=== PATIENT | male | born 1935 | race Caucasian/White ===

== ENCOUNTER 2017-01-30 11:13 | Inpatient (IN) ==
[2017-01-30] MEDS ORDERED: DUONEB (A & A) INH ONE (11:42)
[2017-01-30 12:03] LABS: MANUAL DIFF NEEDED? NO
[2017-01-30 12:08] LABS: BASO% 0.3 % (0.0-0.8); EOS# 0.17 X1000 (0.0-0.7); EOS% 1.9 % (0.0-10.0); HEMATOCRIT 31.2 % (42.0-52.0); HEMOGLOBIN 9.1 g/dL (14.0-18.0); IMM GRAN# 0.05 X1000 (0.0-0.04); IMM GRAN% 0.6 % (0.0-0.5); LYMPH# 1.18 X1000 (1.2-3.4); LYMPH% 13.4 % (20.5-51.1); MCH 26.5 PG (27-31); MCHC 29.2 g/dL (33-37); MCV 90.7 FL (81-99); MONO# 0.74 X1000 (0.11-0.59); MONO% 8.4 % (1.7-9.3); MPV 10.8 FL (7.4-10.4); NEUT% 75.4 % (42.2-75.2); PLT 212 X1000 (130-400); RBC 3.44 XMIL (4.7-6.1)
[2017-01-30 12:34] LABS: ALLEN TEST YES; BE -0.8 mmoll (-3.0-3.0); BLOOD TYPE ARTERIAL; DRAW SITE R RADIAL; METHB 1.8 % (0.0-1.5); MODALITY VENTIMASK; O2(CT) 12.1 mL/dL (15.0-23.0); PCO2(98.6) 34 mmHg (35-45); PO2(98.6) 106 mmHg (60-100); SAMPLE BLOOD; SAO2 100.3 % (95.0-100.0); THB 8.9 g/dL (11.5-17.4); pH(98.6) 7.44 (7.35-7.45)
[2017-01-30 12:52] LABS: AGAP 15; ALBUMIN 4.3 g/dL (3.5-5.0); ALKALINE PHOSPHATASE 90 U/L (32-122); BUN 25 mg/dL (8-22); CALCIUM 9.1 mg/dL (8.8-10.2); CHLORIDE 103 mmol/L (98-107); COSMO 286; GOT 19 U/L (10-34); GPT 10 U/L (10-44); SODIUM 141 mmol/L (136-145); TCO2 23 mmol/L (25-35); TOTAL BILIRUBIN 1.22 mg/dL (0.20-1.00); TOTAL PROTEIN 7.3 g/dL (6.3-8.3)
[2017-01-30] MEDS ORDERED: ROCEPHIN 1 GM/NS 1 GM/50 ML IVPB IV ONE (13:40)
[2017-01-30] MEDS ORDERED: SOLU-MEDROL IV ONE (13:41)
[2017-01-30] MEDS ORDERED: ZITHROMAX 500 MG/NS 500 MG/250 ML IVPB IV SCH (13:45)
--- NOTE | 2017-01-30 15:21 | Diag Imaging Result Document ---
PROCEDURE NAME: CHEST-PORTABLE - 01/30/2017 PORTABLE CHEST: COMPARISON: 08/31/2016. FINDINGS: There are surgical clips in the right hilum. The heart is enlarged. There are postsurgical changes with scarring in the right lung. Questionable underlying infiltrate in the right base. The left lung is well expanded and clear. Minimal right pleural thickening versus an effusion. No left effusion identified. IMPRESSION: Questionable small infiltrate or atelectasis in the right base with mild cardiomegaly.
--- NOTE | 2017-01-30 15:34 | Diag Imaging Result Document ---
PROCEDURE NAME: ANGIOGRAM/PULMONARY ARTERIES - 01/30/2017 CTA CHEST: COMPARISON: 07/13/2016. FINDINGS: There is no evidence of pulmonary embolism. There is patchy aortic atherosclerotic calcification. There is no evidence of aortic aneurysm or dissection. There is cardiomegaly that appears to have worsened since the previous study. There are calcified mediastinal and hilar lymph nodes indicating prior granulomatous disease. Other shotty noncalcified in nodes are nonspecific. A few are mildly prominent, but are essentially stable as compared to the previous study. There is severe pulmonary emphysema. There is stable volume loss related to a prior partial right pneumonectomy. There is mild scarring at the periphery of the anterior aspect of the right upper lobe and at the right lung base that are essentially stable. The consolidation seen at the posterior aspect of the right upper lobe on the previous study has essentially resolved and there is now only scarring in its place. There are a few scattered calcified granulomata. No pleural fluid collection is appreciated. The left and right renal pelves appear to be more prominent than the previous study, especially on the left. There is stable mild thickening of the adrenal glands, and there is a stable 1.7 cm nodule just posterior to the right adrenal gland. There is nodular thickening right hemidiaphragm posterior to the right hepatic lobe measuring up to 2.4 cm. It is essentially stable. IMPRESSION: 1. Cardiomegaly that has worsened during the interval. 2. Severe emphysema. 3. Postsurgical changes and patchy scarring in the right lung. 4. Shotty, somewhat prominent mediastinal and hilar lymph nodes that are stable. 5. Increase in prominence of the renal collecting systems of unknown significance. 6. Stable nodular densities posterior to the right adrenal gland and underlying the right hemidiaphragm. 7. No evidence of pulmonary embolism.
[2017-01-30] MEDS ORDERED: TYLENOL PO PRN (19:58)
[2017-01-30] MEDS: SOLU-MEDROL IV SCH (21:14)
[2017-01-30] MEDS: LEVAQUIN 500 MG/D5W 500 MG/100 ML IVPB IV SCH (21:14)
[2017-01-30] MEDS: ELAVIL PO SCH (21:15)
[2017-01-30] MEDS: NIACIN PO SCH (21:15)
[2017-01-30] MEDS: FISH OIL CONCENTRATE PO SCH (21:15)
[2017-01-30] MEDS: INDERAL PO SCH (21:15)
[2017-01-30] MEDS: ZYLOPRIM PO SCH (21:15)
[2017-01-30] MEDS: ATIVAN PO SCH (21:15)
[2017-01-30] MEDS: GLUCOSAMINE 500 MG/CHONDROITIN 400 MG PO SCH (21:18)
[2017-01-30] MEDS: LOVENOX SUBQ SCH (21:18)
--- NOTE | 2017-01-30 22:16 | HISTORY AND PHYSICAL ---
PRIMARY CARE PHYSICIAN: Scott Guerra MD. CHIEF COMPLAINT: Shortness of breath. HISTORY OF PRESENT ILLNESS: This is an 81-year-old, white male with a complicated past medical history, who presents for evaluation of above-mentioned symptoms. Current history of present illness began on Monday afternoon. At that time, patient complained of mild congestion. The patient states he was able to carry out his daily activities. Unfortunately, on Monday his condition considerably progressed. The patient states he went to [employer] without event. Upon going to lunch with his family, he developed acute onset shortness of breath with associated mild wheezing. The patient was able to rest with improvement in his shortness of breath. Throughout the day, patient remained short of breath, but stable at rest. He did not seek medical attention secondary to his ability to maintain adequate symptom control with rest. This morning, patient awoke and developed profound shortness of breath while attempting to shower. Because of his progressive symptoms, patient presented to the emergency department for further evaluation and management. Upon arrival, laboratory data was drawn which returned significant only for an elevated D-dimer. The patient's oxygen saturation, however, was noted to be in the 70s. A CT angiogram of the chest was performed. The patient was found to have worsening cardiomegaly, severe emphysema, patchy scarring, shotty lymphadenopathy, and prominence of the renal collecting systems of unknown significance. Nodular densities posterior to the right adrenal gland were noted to be stable. Because of the patient's overall progressive shortness of breath and hypoxia, patient will be admitted to the hospital for full evaluation and management. Of note, patient denies recent sick contacts. He denies cardiac symptoms including chest pains, palpitations, lower extremity edema, orthopnea, and PND. He denies fevers and chills. PAST MEDICAL HISTORY: 1. History of iron-deficiency anemia. 2. History of abdominal aortic aneurysm. 3. History of a right iliac artery aneurysm. 4. Benign prostatic hypertrophy status post TURP in 2000. 5. Multiple brown nevi, actinic keratoses, and seborrheic keratoses. 6. Minimal carotid artery disease. 7. Chronic cholecystitis status post cholecystectomy in 2000. 8. Chronic obstructive pulmonary disease, severe. 9. Diverticulosis. 10. Insomnia. 11. Hypertension. 12. Hypertriglyceridemia. 13. Nonalcoholic fatty liver disease. 14. Left foot drop with spontaneous resolution in 2011. 15. Gilbert's disease. 16. Gout. 17. Hematochezia. 18. External hemorrhoids. 19. Chronic hypoxia requiring home oxygen. 20. Impaired fasting glucose. 21. History of right inguinal hernia status post surgical intervention. 22. Low HDL. 23. Erectile dysfunction. 24. Mild mitral regurgitation. 25. History of tobacco use, having smoked 1-2 packs per day for 53 years. He stopped in 2004. He currently uses oral tobacco. 26. Osteoarthritis. 27. Palpitations. 28. History of pulmonary nodules status post lobectomy with negative pathology. 29. Thrombocytopenia. CURRENT MEDICATIONS: 1. Allopurinol 200 mg daily. 2. Amitriptyline 25 mg at bedtime. 3. Aspirin 81 mg daily. 4. Claritin 10 mg daily as needed. 5. Iron sulfate 325 mg daily. 6. Fish Oil 1000 mg twice a day. 7. Glucosamine chondroitin twice daily. 8. Lorazepam 1 mg at bedtime. 9. Meloxicam 15 mg daily as needed. 10. Mucinex DM twice daily as needed. 11. Niacin 500 mg at bedtime. 12. ProAir HFA 1-2 puffs every 4-6 hours as needed. 13. Propranolol 40 mg twice daily. 14. Spiriva 18 mcg capsule inhaled daily. 15. Symbicort 160/4.5, 2 puffs twice daily. ALLERGIES: Patient states she is allergic to Actos, doxycycline, TriCor, and Zosyn therapy. SOCIAL HISTORY: Patient previously smoked 1-2 packs per day for 53 years. He stopped in 2004. He currently uses oral tobacco. He denies alcohol or illicit drug use. He is retired from [employer]. He enjoys gardening and watching basketball. His exercise is limited by lung disease. FAMILY HISTORY: Patient's father passed at age 79 secondary to complications of a hepatoma. Patient's mother passed at age 98 secondary to complications of dementia. She had a history of stroke. REVIEW OF SYSTEMS: A 12 point review of systems was performed. Pertinent positives and negatives noted in history present illness. PHYSICAL EXAMINATION: VITAL SIGNS: Temperature 97.4 degrees, heart rate 86, respirations 15, blood pressure is 108/59. GENERAL: Well-nourished, well-developed, in no acute distress. HEENT: Normocephalic, atraumatic. Pupils equal, round, reactive to light. Extraocular muscles intact. Sclerae anicteric. [place] conjunctivae. Oropharynx and nasopharynx clear without exudate. NECK: Supple. No lymphadenopathy. No thyromegaly. No bruits auscultated. CARDIOVASCULAR: Regular rate and rhythm. No significant murmurs, rubs, or gallops. PULMONARY: Distant breath sounds bilaterally. Minimal wheezing. ABDOMEN: Soft, nontender, nondistended. Positive bowel sounds. EXTREMITIES: Moves all extremities well. No significant clubbing, cyanosis, or edema. NEUROLOGIC EXAMINATION: Cranial nerves 2 through 12 grossly intact. Motor and sensory grossly intact. PSYCHOLOGIC EXAMINATION: Appropriate. LABORATORY DATA: White blood cell count 8.83, hemoglobin 9.1, hematocrit 31.2, platelet count 212,000. D-dimer 0.89, pH 7.44, pCO2 34, PO2 106, bicarbonate 24. Sodium 141, potassium 4.0, chloride 103, bicarbonate 23, BUN 25, creatinine 1.1, glucose 101, calcium 9.1, total bilirubin 1.22, total protein 7.3, albumin 4.3, alkaline phosphatase 90, AST 19, ALT 10. ASSESSMENT AND PLAN: An 81-year-old white male with past medical history as noted presents for evaluation of profound shortness of breath with associated hypoxia. Patient has severe COPD and has experienced multiple exacerbations recently. The patient was treated with steroids and bronchodilators while in the emergency department. This has improved, although not resolved his condition. Patient will be admitted to the hospital for full evaluation and management of acute exacerbation of chronic obstructive pulmonary disease with associated hypoxia. 1. Admit to General Medicine. 2. Acute exacerbation of chronic obstructive pulmonary disease - As above, patient has severe disease. Unfortunately, this is nearing end-stage. We will place patient on bronchodilators, steroids, and IV antibiotic therapy. We will encourage incentive spirometry and aspiration precautions. We will follow his clinical course closely. 3. Hypoxia - This is significant. The patient will be placed on oxygen per protocol. We will treat the patient aggressively as described above. Unfortunately, time will determine whether improvement can be achieved. His underlying severe COPD is the primary cause of hypoxia. 4. Hypertension - We will continue patient's home medications. His blood pressure at the present time is reasonably controlled. 5. Cardiomegaly - This is described per CT scan. We will schedule an echocardiogram in the a.m. 6. Impaired fasting glucose - We will monitor patient's blood sugars while hospitalized. We will remain aware. 7. Fluid, electrolytes, nutrition. We will monitor electrolytes. Saline lock IV. Cardiac prudent diet. Prophylaxis: Patient will be placed on subcutaneous Lovenox. cc: Scott Guerra MD MTDD
[2017-01-30] MEDS: DUONEB (A & A) INH SCH (22:33)
[2017-01-31] MEDS: DUONEB (A & A) INH SCH ×6 (03:48→23:16)
[2017-01-31] MEDS: SOLU-MEDROL IV SCH ×3 (05:00→20:47)
[2017-01-31] MEDS: PRILOSEC PO SCH ×2 (05:29→07:29)
--- NOTE | 2017-01-31 05:47 | EKG Report ---
Test Performed on : 01/30/2017 11:32:42 AM Test Reason : Blood Pressure : / mmHG Vent. Rate : 072 BPM Atrial Rate : 072 BPM P-R Int : 182 ms QRS Dur : 090 ms QT Int : 422 ms P-R-T Axes : -15 -09 019 degrees QTc Int : 462 ms Normal sinus rhythm. ST \T\ T wave abnormality, consider anterior ischemia Prolonged QT Abnormal ECG When compared with ECG of 12-JUL-2016 22:01, Questionable change in QRS axis T wave inversion now evident in Anterior leads Unconfirmed Result
[2017-01-31] MEDS: SYMBICORT 160/4.5 MICROGM INHALER INH SCH ×2 (08:10→23:16)
[2017-01-31] MEDS: SPIRIVA INH SCH (08:10)
[2017-01-31] MEDS: GLUCOSAMINE 500 MG/CHONDROITIN 400 MG PO SCH ×2 (08:45→20:48)
[2017-01-31] MEDS: CLARITIN PO SCH (08:45)
[2017-01-31] MEDS: ASPIRIN PO SCH (08:45)
[2017-01-31] MEDS: FERROUS SULFATE PO SCH (08:45)
[2017-01-31] MEDS: FISH OIL CONCENTRATE PO SCH ×2 (08:45→20:48)
[2017-01-31] MEDS: INDERAL PO SCH ×2 (08:46→20:47)
[2017-01-31] MEDS: ZYLOPRIM PO SCH ×2 (08:55→20:48)
[2017-01-31] MEDS: ATIVAN PO SCH (20:47)
[2017-01-31] MEDS: NIACIN PO SCH (20:47)
[2017-01-31] MEDS: ELAVIL PO SCH (20:48)
[2017-01-31] MEDS: LEVAQUIN 500 MG/D5W 500 MG/100 ML IVPB IV SCH (20:48)
[2017-01-31] MEDS: LOVENOX SUBQ SCH (20:48)
--- NOTE | 2017-01-31 21:52 | ECHO REPORT ---
ORDER DATE: 01/30/2017 INTERPRETING PHYSICIAN: Dr. Carrera REQUESTING PHYSICIAN: CLINICAL INDICATIONS: An 81-year-old male with shortness of breath, COPD. M-MODE MEASUREMENTS: Right ventricle: 3.6 cm. Left ventricle end diastole: 4.5 cm. Left ventricle end systole: 2.8 cm. Posterior wall: 1.1 cm. Interventricular septum: 1.2 cm. Left atrium: 3.8 cm. Aortic root: 4.4 cm. SUMMARY OF 2-DIMENSIONAL IMAGING: The left ventricular function appears to be very well preserved. Ejection fraction estimated at 65-70%. The ventricle is actually hyperdynamic. The right ventricle is enlarged. It shows mild global hypokinesis. The mitral valve shows a mild degree of regurgitation. Pulse wave Doppler of mitral inflow shows reversal of the E and the A wave. Tissue Doppler of septal and lateral mitral annulus averages 7 cm per second. Diastolic function is probably within normal range. The pulmonic valve looks normal with a mild degree of regurgitation. The inferior vena cava is at the upper limits of normal. The tricuspid valve shows a moderate degree of regurgitation. The pulmonary systolic pressure is estimated at 74 mmHg. That is consistent with significant pulmonary hypertension. The aortic valve is calcified. It shows restricted opening. Color flow mapping shows a mild degree of regurgitation. Maximum gradient across the valve is 63 mmHg, mean gradient 32 mmHg. Valve area is calculated at 1.2 cm squared using continuity equation. There is no pericardial effusion, masses or thrombus. IMPRESSION: In summary, this study shows: 1. Excellent left ventricular systolic function. 2. Moderate degree of aortic stenosis. Mean gradient 32 mmHg. Valve area 1.2 cm squared. 3. Diastolic function probably normal. 4. Enlarged right ventricle with hypokinesis and moderate pulmonary hypertension estimated at 74 mmHg. Clinical correlation recommended. cc: MD Scott Merrill MD
--- NOTE | 2017-01-31 21:58 | PROGRESS NOTE ---
DATE: 01/31/2017 SUBJECTIVE: Over the course of the last 24 hours, the patient has been treated aggressively for an underlying acute exacerbation of COPD. Solu-Medrol, antibiotics, and bronchodilators were initiated. The patient has tolerated medical intervention very well. Today, patient states his overall condition has improved. He continues to have shortness of breath with minimal exertion, although this is better than yesterday. He has a cough, which is largely nonproductive. He denies fevers, chills, nausea, vomiting, or chest discomfort. He continues to require oxygen therapy to maintain adequate oxygen saturations. OBJECTIVE: Vital Signs: T-max 98.0 degrees, heart rate 84-105, respirations 16-24, blood pressure 107-119 over 59-75. General: Well-nourished, well-developed, no acute distress. Cardiovascular: Regular rate and rhythm. No significant murmurs, rubs, or gallops. Pulmonary: Distant breath sounds. Reasonable air movement. Abdomen: Soft, nontender, nondistended. Positive bowel sounds. Extremities: Moves all extremities well. No significant clubbing, cyanosis, or edema. Dermatologic: Evaluation reveals no evidence of rash. LABORATORY DATA: None. ASSESSMENT AND PLAN: 1. Acute exacerbation of chronic obstructive pulmonary disease - As above. Patient's overall condition has improved. For now, we will continue his current dose and schedule of Solu- Medrol. We will continue antibiotics and bronchodilators. If the patient's condition continues to improve, we will initiate steroid taper in the a.m. 2. Hypoxia - The patient continues to require oxygen per protocol. We will continue this and monitor patient's course closely. 3. Hypertension - The patient's blood pressure is reasonably controlled on his current regimen. 4. Cardiomegaly - This was described per CT scan. Echocardiogram has been performed. Results are pending. We will follow this. 5. Impaired fasting glucose. I think we will continue the patient on sliding scale insulin, while on steroid intervention. 6. Disposition - At this point, the patient continues to require [facility] care in a hospital setting. We will plan discharge home once appropriate. cc: Scott Guerra MD
[2017-02-01] MEDS: DUONEB (A & A) INH SCH ×6 (03:44→23:01)
[2017-02-01] MEDS: PRILOSEC PO SCH ×2 (04:11→08:09)
[2017-02-01] MEDS: SOLU-MEDROL IV SCH ×3 (04:12→20:32)
[2017-02-01] MEDS: SYMBICORT 160/4.5 MICROGM INHALER INH SCH ×2 (07:26→19:58)
[2017-02-01] MEDS: SPIRIVA INH SCH (07:26)
[2017-02-01] MEDS: ASPIRIN PO SCH (08:13)
[2017-02-01] MEDS: INDERAL PO SCH ×2 (08:13→20:32)
[2017-02-01] MEDS: ZYLOPRIM PO SCH ×2 (08:13→20:33)
[2017-02-01] MEDS: GLUCOSAMINE 500 MG/CHONDROITIN 400 MG PO SCH ×2 (08:14→20:33)
[2017-02-01] MEDS: FERROUS SULFATE PO SCH (08:14)
[2017-02-01] MEDS: FISH OIL CONCENTRATE PO SCH ×2 (08:14→20:33)
[2017-02-01] MEDS: CLARITIN PO SCH (08:14)
--- NOTE | 2017-02-01 18:41 | PROGRESS NOTE ---
DATE: 02/01/2017 SUBJECTIVE: Overall, patient states he is slowly improving. The patient notes his shortness of breath and wheezing has decreased over the course of the last 24 hours. He is tolerating Solu- Medrol, antibiotics and bronchodilators well. Yesterday, he had an echocardiogram performed. Echocardiogram suggested excellent left ventricular systolic function, moderate degree of aortic stenosis, and enlarged right ventricle with hypokinesis and moderate pulmonary hypertension estimated at 74 mmHg. He denies fevers, chills, nausea, vomiting, or chest discomfort. OBJECTIVE: Vital signs: Temperature maximum is 98 degrees, heart rate of 50-97, respirations 18- 20, blood pressure 107-130/64-75. General: Well nourished, well developed, in no acute distress. Cardiovascular: Regular rate and rhythm. No significant murmurs, rubs, or gallops. Pulmonary: Distant breath sounds. Clear to auscultation. Prolonged expiratory phase. Abdomen: Soft, nontender, nondistended. Positive bowel sounds. Extremities: Moves all extremities well. No significant clubbing, cyanosis, or edema. Dermatologic: Evaluation reveals no evidence of fracture. LABORATORY DATA: None. ASSESSMENT AND PLAN: 1. Acute exacerbation of chronic obstructive pulmonary disease-patient's overall condition is slowly improving. We will continue antibiotics and bronchodilators. We will began decreasing Solu-Medrol to 40 mg every 8 hours. We will follow patient's clinical course closely. 2. Hypoxia-we will continue oxygen per protocol. 3. Aortic stenosis-we will remain aware. Patient will need a Cardiology follow up as an outpatient. 4. Enlarged right ventricle with hypokinesis and moderate pulmonary hypertension-this was diagnosed per echocardiogram. This likely is secondary to severe chronic obstructive pulmonary disease. Once again, we will plan Cardiology follow up as an outpatient. 5. Hypertension-patient's blood pressure is controlled on his current regimen. 6. Impaired fasting glucose-while on steroids, we will continue sliding scale insulin. 7. Disposition-at this point, patient continues to require long-term care in the hospital setting. We will plan discharge home once appropriate. cc: Scott Guerra MD
[2017-02-01] MEDS: LOVENOX SUBQ SCH (20:33)
[2017-02-01] MEDS: NIACIN PO SCH (20:33)
[2017-02-01] MEDS: LEVAQUIN 500 MG/D5W 500 MG/100 ML IVPB IV SCH (20:33)
[2017-02-01] MEDS: ELAVIL PO SCH (20:33)
[2017-02-01] MEDS: ATIVAN PO SCH (20:37)
[2017-02-02] MEDS: DUONEB (A & A) INH SCH ×6 (04:09→23:21)
[2017-02-02] MEDS: PRILOSEC PO SCH ×2 (05:22→08:23)
[2017-02-02] MEDS: SOLU-MEDROL IV SCH ×2 (05:22→17:34)
--- NOTE | 2017-02-02 06:18 | ED EKG INTERP ---
This chart was entered by Jennifer Gray Scribe, acting as scribe for Tian Lara MD. EKG Interpretation - EKG Time of EKG reading by physician:: 11:32 EKG Read and Signed by:: Tian Lara EKG Interpretation (*Must complete 3 of following elements*): Abnormal ( prolonged QT) Rate: 72 Rhythm: normal sinus rhythm Comments: ST and T wave abnormality, consider anterior ischemia; This chart was documented by the indicated scribe, (Jennifer Gray Scribe) and accurately reflects the services I performed and decisions made by me, Tian Lara MD, as attested by the provider's signature.
[2017-02-02] MEDS: SPIRIVA INH SCH (07:35)
[2017-02-02] MEDS: SYMBICORT 160/4.5 MICROGM INHALER INH SCH ×2 (07:35→19:55)
[2017-02-02] MEDS: ZYLOPRIM PO SCH ×2 (08:23→20:25)
[2017-02-02] MEDS: FISH OIL CONCENTRATE PO SCH ×2 (08:23→20:25)
[2017-02-02] MEDS: INDERAL PO SCH ×2 (08:23→20:25)
[2017-02-02] MEDS: FERROUS SULFATE PO SCH (08:23)
[2017-02-02] MEDS: ASPIRIN PO SCH (08:23)
[2017-02-02] MEDS: GLUCOSAMINE 500 MG/CHONDROITIN 400 MG PO SCH ×2 (08:23→20:25)
[2017-02-02] MEDS: CLARITIN PO SCH (08:23)
--- NOTE | 2017-02-02 14:37 | PROGRESS NOTE ---
DATE: 02/02/2017 SUBJECTIVE: This morning, patient states he continues to slowly improve. He complains of less cough, congestion, wheezing, and shortness of breath. He is interested in attempting a shower today. He denies fevers, chills, nausea, vomiting, or chest discomfort. OBJECTIVE: Vital Signs: T-max 97.9 degrees, heart rate 84-95, respirations 18-22, blood pressure 115-135/63-82. General: Well nourished, well developed, in no acute distress. Cardiovascular: Regular rate and rhythm. No significant murmurs, rubs, or gallops. Occasional ectopy. Pulmonary: Distant breath sounds with minimal wheezing. Prolonged expiratory phase. Abdomen: Soft, nontender, nondistended. Positive bowel sounds. Extremities: Moves all extremities well. No significant clubbing, cyanosis, or edema. Dermatologic Evaluation: Evaluation reveals no evidence of rash. LABORATORY DATA: None. ASSESSMENT AND PLAN: 1. Acute exacerbation of chronic obstructive pulmonary disease - The patient's overall condition continues to very slowly improve. We will decrease patient's Solu-Medrol 40 mg every 12 hours. We will continue antibiotics and bronchodilators. We will call follow his clinical course closely. 2. Hypoxia - We will continue oxygen per protocol. We will follow this up. 3. Aortic stenosis - Patient is noted to have moderate aortic stenosis. We will plan cardiology consultation prior to discharge. While I do not expect this is the primary cause of symptoms, I suspect this may be a contributing factor. 4. Enlarged right ventricle with hypokinesis and moderate pulmonary hypertension - Once again, we will consider cardiology consultation prior to discharge. Elevated pulmonary pressures are likely secondary to significant chronic obstructive pulmonary disease. We will remain aware. 5. Hypertension - The patient's blood pressure is controlled on his current regimen. We will continue this. 6. Impaired fasting glucose - The patient's blood sugars have increased while on steroids. We will continue sliding scale insulin DISPOSITION: At this point, the patient continues to require snf care in a hospital setting. We will plan discharge home once appropriate. cc: Scott Geurra MD
[2017-02-02] MEDS: ELAVIL PO SCH (20:25)
[2017-02-02] MEDS: ATIVAN PO SCH (20:25)
[2017-02-02] MEDS: LEVAQUIN 500 MG/D5W 500 MG/100 ML IVPB IV SCH (20:25)
[2017-02-02] MEDS: NIACIN PO SCH (20:25)
[2017-02-02] MEDS: LOVENOX SUBQ SCH (20:25)
[2017-02-03] MEDS: DUONEB (A & A) INH SCH ×5 (04:01→23:09)
[2017-02-03] MEDS: SOLU-MEDROL IV SCH (06:11)
[2017-02-03] MEDS: PRILOSEC PO SCH (06:11)
[2017-02-03] MEDS: SYMBICORT 160/4.5 MICROGM INHALER INH SCH ×2 (08:25→19:56)
[2017-02-03] MEDS: SPIRIVA INH SCH (08:25)
[2017-02-03] MEDS ORDERED: PREDNISONE PO ONE (08:43)
[2017-02-03] MEDS: CLARITIN PO SCH (09:04)
[2017-02-03] MEDS: ASPIRIN PO SCH (09:04)
[2017-02-03] MEDS: GLUCOSAMINE 500 MG/CHONDROITIN 400 MG PO SCH ×2 (09:04→20:27)
[2017-02-03] MEDS: FERROUS SULFATE PO SCH (09:04)
[2017-02-03] MEDS: FISH OIL CONCENTRATE PO SCH ×2 (09:04→20:28)
[2017-02-03] MEDS: INDERAL PO SCH ×2 (09:04→20:27)
[2017-02-03] MEDS: ZYLOPRIM PO SCH ×2 (09:04→20:27)
--- NOTE | 2017-02-03 09:42 | CONSULTATION ---
DATE OF CONSULTATION: 02/03/2017 INDICATION: Aortic stenosis. HISTORY OF PRESENT ILLNESS: Mr. Shaikh is a pleasant 81-year-old white male with a history of COPD, who presented for evaluation of shortness of breath on the first. He reports symptoms have been worsening somewhat over the previous few days. He had some mild upper respiratory congestion, but denies any significant amount of cough or fevers. He has a significant history of COPD with apparently partial lung resection in the past. He denies any orthopnea. No PND. No lower extremity edema. He has no history of heart failure that he is aware of. PAST MEDICAL HISTORY: 1. Abdominal aortic and right iliac artery aneurysm. 2. History of BPH with previous TURP in 2000. 3. Significant COPD with previous partial lung resection. 4. Diverticulosis. 5. Hypertension. 6. Hyperlipidemia; predominantly notably elevated triglyceride and low HDL. 7. Gilbert disease. 8. Gout. 9. External hemorrhoids. 10. Erectile dysfunction. 11. Previous tobacco use. Quit in 2004. 12. Osteoarthritis. SOCIAL HISTORY: Previously smoked 1-2 packs a day for 53 years, but quit around 12 years ago. No current alcohol. FAMILY HISTORY: Father at 79; mother at 98 secondary to dementia. REVIEW OF SYSTEMS: A 10-system review of systems is negative except for those things mentioned in HPI. PHYSICAL EXAMINATION: Vital Signs: Most recently he is afebrile. Heart rate of 91, blood pressure 138/79. General: He is in no acute distress. HEENT: Oropharynx is moist. Poor dentition. Eye examination shows pink conjunctivae, white sclerae. Neck: Examination shows no obvious thyromegaly. No thyroid tenderness. Cardiovascular: He is in a regular rate and rhythm. He has a 2/6 systolic murmur that is crescendo/decrescendo best heard at the right upper sternal border. There is some possible radiation up into the left carotid. No lower extremity edema. Chest: His chest exam reveals he has reduced breath sounds somewhat diffusely. No increased work of breathing. Abdomen: Soft, nontender. No obvious organomegaly. Skin Exam: Warm and dry throughout without any rashes. Neurological: He is moving all extremities well. He is nonfocal. Cranial nerves are intact. Psychiatric: He is alert, oriented and pleasant. He has a normal mood and affect. PERTINENT DATA: He had an echocardiogram performed here on the first demonstrating moderate aortic stenosis. Mean gradient 32, valve area of 1.2. Notably also the right ventricle was somewhat enlarged with mild hypokinesis and an RV systolic pressure of 74. He had mild LVH. The aortic root was also noted to be somewhat enlarged on that study. Pulmonary arteriogram demonstrated no evidence of embolism. The aortic valve was not noted to be enlarged on that study. Severe emphysema was noted with post surgical changes in the right lung. Electrocardiogram performed on the demonstrated sinus rhythm, no signs of ischemic changes, no significant injury pattern. LABORATORY DATA: His proBNP on presentation was 835. Most recently his sodium is 141, potassium 4, BUN 25, creatinine 1.1. His T-bilirubin is 1.22. His white count is 8.8, hematocrit 31.2, and his platelet count is 212. ASSESSMENT: 1. Moderate aortic stenosis. 2. Severe chronic obstructive pulmonary disease. PLAN: Patient is likely not symptomatic from the aortic stenosis. His proBNP is elevated; this could be partially secondary to the aortic stenosis, but also likely secondary to his right heart issues which what appears to be pulmonary venous hypertension secondary to severe COPD. At this point, I just want to add in just a very low dose of diuretic at hydrochlorothiazide 12.5 mg daily. I have written a prescription for a basic metabolic panel to be checked late next week. I will see him in the office within the next month. Likely would plan to have an echocardiogram checked in the next 6 months and then, depending on the result of that, probably yearly thereafter. I appreciate the consultation. cc: MD Scott Rod MD
[2017-02-03] MEDS: ATIVAN PO SCH (20:27)
[2017-02-03] MEDS: NIACIN PO SCH (20:27)
[2017-02-03] MEDS: LEVAQUIN 500 MG/D5W 500 MG/100 ML IVPB IV SCH (20:27)
[2017-02-03] MEDS: ELAVIL PO SCH (20:28)
[2017-02-03] MEDS: LOVENOX SUBQ SCH (20:28)
--- NOTE | 2017-02-03 21:19 | PROGRESS NOTE ---
DATE: 02/03/2017 SUBJECTIVE: Patient continues to slowly improve. He is experiencing less cough, congestion, wheezing and shortness of breath. He is walking with physical therapy. His overall condition has improved from yesterday. OBJECTIVE: T-max 98.6 degrees, heart rate 67- 91, respirations 16-24, blood pressure is 120-145 over 78-83.General: Well nourished, well developed. No acute distress. Cardiovascular: Regular rate and rhythm. No significant murmurs, rubs, or gallops. Pulmonary: Distant breath sounds. Adequate air movement. Abdomen: Soft, nontender, nondistended. Positive bowel sounds. Extremities: Moves all extremities well. No significant clubbing, cyanosis or edema. Dermatologic: Evaluation reveals no evidence of rash. LABORATORY DATA: None. ASSESSMENT AND PLAN: 1. Acute exacerbation of chronic obstructive pulmonary disease-patient continues to very slowly improve. This morning we converted the patient from IV Solu-Medrol to oral prednisone. This evening patient continues to do reasonably well. Should patient continue to do well in the morning, we will plan discharge home with a prolonged steroid taper. 2. Hypoxia-we will continue oxygen per protocol. His O2 saturation is acceptable. 3. Aortic stenosis. I appreciate Dr. Mcneal's consultation. Dr. Mcneal has recommended starting hydrochlorothiazide therapy. At this point, no surgical intervention is warranted. 4. Hypertension-patient's blood pressure is controlled on his current regimen. 5. Impaired fasting glucose-blood sugars have been elevated secondary to steroid use. We will continue sliding scale insulin. 6. Disposition-at this point, the patient continues to require correction care in the hospital setting. We will plan discharge home once appropriate. cc: Scott Guerra MD
[2017-02-04] MEDS: DUONEB (A & A) INH SCH ×3 (04:19→11:20)
[2017-02-04] MEDS: PRILOSEC PO SCH (06:33)
[2017-02-04 07:24] VITALS: BP 146/86
[2017-02-04] MEDS: SYMBICORT 160/4.5 MICROGM INHALER INH SCH (07:30)
[2017-02-04] MEDS: SPIRIVA INH SCH (07:30)
[2017-02-04] MEDS ORDERED: HYDROCHLOROTHIAZIDE PO SCH (09:00)
[2017-02-04] MEDS: INDERAL PO SCH (09:01)
[2017-02-04] MEDS: ASPIRIN PO SCH (09:01)
[2017-02-04] MEDS: ZYLOPRIM PO SCH (09:01)
[2017-02-04] MEDS: FERROUS SULFATE PO SCH (09:01)
[2017-02-04] MEDS: CLARITIN PO SCH (09:01)
[2017-02-04] MEDS: FISH OIL CONCENTRATE PO SCH (09:01)
[2017-02-04] MEDS: GLUCOSAMINE 500 MG/CHONDROITIN 400 MG PO SCH (09:01)
[2017-02-04] MEDS ORDERED: PREDNISONE PO ONE (11:19)
--- NOTE | 2017-02-05 06:52 | DISCHARGE SUMMARY ---
ADMISSION DATE: 01/30/2017 DISCHARGE DATE: 02/04/2017 ADMISSION DIAGNOSIS: Shortness of breath. DISCHARGE DIAGNOSES: 1. Acute exacerbation of chronic obstructive pulmonary disease. 2. Hypoxia, present on arrival, but with exacerbation. 3. Aortic stenosis, present on arrival, but modestly symptomatic. 4. Hypertension, present on arrival. 5. Impaired fasting glucose, present on arrival. CONSULTATIONS: Dr. Anupam Mcneal, with Cardiology, was consulted for further evaluation and management of aortic stenosis. PROCEDURES: 1. A chest x-ray was performed on 01/30/2017, which revealed questionable small infiltrate or atelectasis in the right base with mild cardiomegaly. 2. A CT pulmonary angiogram was performed on 01/30/2017, which revealed cardiomegaly that has worsened during the interval. Severe emphysema. Post surgical changes and patchy scarring in the right lung. Shotty, somewhat prominent mediastinal and hilar lymph nodes that are stable. Increase in prominence of the renal collecting systems of unknown significance. Stable nodular density posterior to the right adrenal gland and underlying the right hemidiaphragm. No evidence of pulmonary embolism. 3. Echocardiogram was performed on 01/30/2017, which revealed excellent left ventricular systolic function. Moderate degree of aortic stenosis. Mean gradient of 32 mmHg. Valve area of 1.2 cm2. Diastolic function probably normal. Enlarged right ventricle with hypokinesis and moderate pulmonary hypotension estimated at 74 mmHg. HISTORY AND PHYSICAL EXAMINATION: See admit note. PHYSICAL EXAMINATION PRIOR TO DISCHARGE: Vital Signs: Temperature 97.6 degrees, heart rate 83, respirations 18, blood pressure is 146/86. General: Well nourished, well developed, in no acute distress. Cardiovascular: Regular rate and rhythm. No significant murmurs, rubs, or gallops. Pulmonary: Distant breath sounds. Adequate air movement. No significant wheezing. Abdomen: Soft, nontender, nondistended. Positive bowel sounds. Extremities: Moves all extremities well. No significant clubbing, cyanosis, or edema. Dermatologic Evaluation: Reveals no evidence of rash. LABORATORY DATA: Prior to discharge: None. ASSESSMENT AND PLAN: 1. Acute exacerbation of chronic obstructive pulmonary disease-upon admission, patient was noted to have considerable shortness of breath. Full evaluation with radiologic imaging was pursued, as described above. The patient was started on Solu-Medrol, levofloxacin, and bronchodilators. He tolerated this very well. Throughout hospitalization, his Solu-Medrol was slowly tapered. At time of discharge, he was tolerating prednisone. He will be discharged home on 5 additional days of levofloxacin, routine DuoNeb, and a prednisone taper starting at 60 mg, decreasing 5 mg daily until off. We will continue to follow patient's clinical course closely. He will also continue following-up with Dr. Chin. 2. Hypoxia-the patient has chronic disease. Upon admission, he experience an exacerbation. He was treated with oxygen per protocol. With aggressive management of his underlying pulmonary condition, his hypoxia returned to baseline. I have asked patient to continue oxygen and titrate for an O2 saturation of greater than 90%. 3. Aortic stenosis-this is a new diagnosis. Echocardiogram suggested moderate disease. At this point, the question is raised whether this is modestly symptomatic. For this reason, I consulted Dr. Mcneal. He suggested initiation of hydrochlorothiazide therapy. He will continue to be followed by Dr. Mcneal as an outpatient. No aggressive intervention has been warranted today. 4. Hypertension-patient's blood pressure remained reasonably controlled with his home medications while hospitalized. We will follow this, especially in the setting of adding hydrochlorothiazide. 5. Impaired fasting glucose-patient's blood sugars were noted to be elevated while hospitalized secondary to the steroids. We will continue to follow this as well. 6. Abnormalities per CT scan including cardiomegaly, shotty lymphadenopathy, and increase in prominence of the renal collecting systems and stable nodular densities posterior to the right adrenal gland-each of these were noted. We will follow this as an outpatient. DISCHARGE CONDITION: Good. DISPOSITION: Discharged to home. MEDICATIONS: 1. Acetaminophen 650 mg every 4 hours as needed. 2. DuoNeb every 4 hours. 3. Allopurinol 200 mg twice daily. 4. Amitriptyline 25 mg at bedtime. 5. Aspirin 81 mg daily. 6. Symbicort 160/4.5, 2 puffs twice daily. 7. Iron sulfate 325 mg daily. 8. Glucosamine and chondroitin twice daily. 9. Hydrochlorothiazide 12.5 mg daily. 10. Loratadine 10 mg daily. 11. Lorazepam 1 mg at bedtime. 12. Niacin 500 mg at bedtime. 13. [place]-3 fatty acid 1200 mg twice daily. 14. Omeprazole 20 mg daily. 15. Propranolol 40 mg twice daily. 16. Spiriva 1 puff daily. 17. Levofloxacin 500 mg daily for 5 days. 18. B-complex vitamin at bedtime. 19. Prednisone 60 mg starting day 1 and decreasing 5 mg daily until off. FOLLOWUP: The patient is to followup with me in approximately 1-2 weeks. cc: Scott Guerra MD
--- NOTE | 2017-02-07 16:53 | PROVIDER DOCUMENTATION ---
This chart was entered by Jennifer Gray Scribe, acting as scribe for Tian Lraa MD. HPI-Respiratory General - General Chief Complaint: Shortness of Breath Stated Complaint: SOB Time Seen by Provider: 01/30/17 11:42 Source: patient Allergies/Adverse Reactions: Patient Allergies Allergy/AdvReac Type Severity Reaction Status Date / Time fenofibrate nanocrystallized Allergy Unknown Verified 01/30/17 11:59 * [From Tricor] fenofibrate,micronized * Allergy Unknown Verified 01/30/17 11:59 [From Tricor] pioglitazone HCl * Allergy Unknown Verified 01/30/17 11:59 [From Actos] piperacillin sodium * Allergy Unknown Verified 01/30/17 11:59 [From Zosyn] tazobactam sodium * Allergy Unknown Verified 01/30/17 11:59 [From Zosyn] Home Medications: Home Medication List Medication Instructions Recorded Confirmed Last Taken Type Amitriptyline [Elavil] 25 mg PO HS 01/22/13 01/30/17 01/30/17 History Aspirin 81 mg PO DAILY 01/22/13 01/30/17 01/30/17 History Rhcqjwet-Wihfuxs-Bsaq 149-Hyal 1,500 tab PO BID 01/22/13 01/30/17 01/30/17 History [Glucosamine Chondroitin Tablet] Loratadine [Claritin] 10 mg PO DAILY 01/22/13 01/30/17 01/30/17 History Lorazepam 1 mg PO QHS 01/22/13 01/30/17 01/30/17 History Niacin 500 mg PO QHS 01/22/13 01/30/17 01/30/17 History [place]-3 Fatty Acids [Fish Oil] 1,200 mg PO BID 01/22/13 01/30/17 01/30/17 History Propranolol [Inderal] 40 mg PO BID 01/22/13 01/30/17 01/30/17 History Omeprazole [Prilosec] 20 mg PO DAILY@0700 02/22/16 01/30/17 01/30/17 History Vitamin B Complex [B Complex] 1 each PO HS 02/22/16 01/30/17 01/30/17 History Tiotropium [place] Inhaler 1 puff INH RTDAILY 07/12/16 01/30/17 01/30/17 History [Spiriva] Albuterol Sulfate [Proair Hfa] 8.5 gm IH Q4H PRN PRN #1 hfa.aer.ad 07/15/1610/1801/30/17 Rx Acetaminophen [Tylenol] 650 mg PO Q4H PRN PRN #0 tablet 02/04/17 Unknown Rx Albuterol 2.5MG/Ipratrop 0.5MG 3 ml INH RTQ4H #180 neb 02/04/17 Unknown Rx [Duoneb (A & A)] Allopurinol [Zyloprim] 200 mg PO BID #0 02/04/17 01/30/17 01/30/17 Rx Budesonide/Formoterol Inhaler 2 puff INH RTBID #0 inhaler 02/04/17 Unknown Rx [Symbicort 160/4.5 Microgm Inhaler] Ferrous Sulfate 325 mg PO DAILY tablet 02/04/17 Unknown Rx Hydrochlorothiazide 12.5 mg PO DAILY #45 tablet 02/04/17 Unknown Rx Levofloxacin [Levaquin] 500 mg PO DAILY #5 tablet 02/04/17 Unknown Rx Prednisone 10 mg PO DIRECTED #39 tablet 02/04/17 Unknown Rx - History of Present Illness-Resp Nature of Presenting Problem: Pt is 81 y/o M presents to the ED with SOB. Pt states SOB started this am. Pt denies cough and F Quality of Pain: reports: aching Severity in ED: reports: mild Onset/Duration: reports: this morning Timing: reports: still present Exposure: reports: unknown cause Cough Quality/Degree: reports: no cough Current Respiratory Medication Therapy: Initiated see nurses note Modifying Factors: improves with: nothing Associated Symptoms: reports: denies symptoms Similar Symptoms Previously?: Yes Recently seen or treated by another doctor?: No Review of Systems - Adult - REVIEW OF SYSTEMS - ADULT Constitutional: reports: no symptoms reported Eyes: reports: no symptoms reported Ears, Nose, Mouth & Throat: reports: no symptoms reported Cardiovascular: reports: no symptoms reported Respiratory: reports: shortness of breath. denies: cough, wheezing Gastrointestinal: reports: no symptoms reported Genitourinary: reports: no symptoms reported Musculoskeletal: reports: no symptoms reported Integumentary: reports: no symptoms reported Neurological: reports: no symptoms reported Psychiatric: reports: no symptoms reported Endocrine: reports: no symptoms reported Hematologic/Lymphatic: reports: no symptoms reported Allergic/Immunologic: reports: no symptoms reported All Other Systems: Reviewed and Negative Past History - Adult - PAST MEDICAL HISTORY-ADULT Review of Records: reports: Nursing Assessment Review, Medications Reviewed, Social history reviewed & non-contributory. Major Childhood Illnesses: reports: denies history Cardiovascular: reports: HTN Respiratory: reports: COPD Gastrointestinal: reports: denies history Obstetrical/Gynecological: reports: denies history Genitourinary: reports: kidney stones Musculoskeletal: reports: denies history Neurological: reports: denies history Endocrine/Immune: reports: denies history Other Conditions: reports: denies history - PRIOR SURGERIES/PROCEDURES Surgical/Procedure History: reports: none - IMMUNIZATION STATUS Childhood Immunizations: See Nurse Assessment Flu Vaccine: See Nurse Assessment - FAMILY HISTORY Family History: reviewed, not pertinent - SOCIAL HISTORY Smoking: quit less than 1 year, other (dip) Provider spent 3-5 mins advising pt. on dangers of tobacco.: Discussed manners to quit use, and f/u contacts for add'l counseling. Substance Use: denies Living Situation: family Physical Exam-General - PHYSICAL EXAM-ADULT Initial Vital Signs Reviewed: Yes - CONSTITUTIONAL General Appearance: appears well, alert, no apparent distress - EYES Eyes: PERRL/EOMI, pink conjunctivae - HEAD, EARS, NOSE, MOUTH & THROAT HENMT: normocephalic/atraumatic, moist mucous membranes, normal ENT inspection, TMs normal, pharynx normal - NECK Neck: non-tender, full range of motion, supple, normal inspection - RESPIRATORY Respiratory: chest non-tender, lungs clear, normal breath sounds, no pleuratic chest pain, no respiratory distress, no accessory muscle use - CARDIOVASCULAR Cardiovascular: normal peripheral pulses, regular rate, rhythm, no edema, no gallop, no JVD, no murmur - GASTROINTESTINAL (ABDOMEN) Abdominal Exam: normal bowel sounds, non tender, soft, no organomegaly, no pulsatile mass - LYMPHATIC Lymphatic: no adenopathy - MUSCULOSKELETAL Back Exam: normal inspection, no CVA tenderness, no vertebral tenderness Extremity: normal range of motion, non-tender, normal gait, normal inspection, no pedal edema, no calf tenderness, normal capillary refill - SKIN Integumentary: normal color, normal turgor, warm/dry - NEUROLOGIC Neurologic: grossly normal - PSYCHIATRIC Psych/Mental Status: normal mood/affect, oriented x 3 Progress - PLAN OF CARE/RESULTS Progress/Plan/Lab Results: Orders Category Date Time Status Admit Patient To Inpatient Status Routine AdmDCTranf 01/30/17 14:16 Ordered Oxygen Therapy- ED Nursing DIRECTED Care 01/30/17 11:43 Completed Saline Loc DIRECTED Care 01/30/17 11:43 Completed ANGIOGRAM/PULMONARY ARTERIES [CT] Stat Exams 01/30/17 13:37 Completed CHEST-PORTABLE [RAD] Stat Exams 01/30/17 11:56 Completed ABG [RESP] Routine Lab 01/30/17 12:20 Completed CBC WITH ELECTRONIC DIFF [HEME] Stat Lab 01/30/17 11:41 Completed COMPREHENSIVE METABOLIC PANEL [CHEM] Stat Lab 01/30/17 11:41 Completed Ddimer [D-DIMER] [CHEM] Stat Lab 01/30/17 11:41 Completed Albuterol 2.5MG/Ipratrop 0.5MG [Duoneb (A & A)] Med 01/30/17 11:42 Discontinued 3 ml INH NOW ONE Azithromycin 500 mg/Ns [Zithromax 500 mg/Ns] Med 01/30/17 13:45 Discontinued 500 mg in 250 ml IV Q24H CefTRIAXONE 1 GM/NS [Rocephin 1 gm/Ns] Med 01/30/17 13:40 Discontinued 1 gm in 50 ml IV NOW Methylprednisolone Sod Succ [Solu-Medrol] Med 01/30/17 13:41 Discontinued 125 mg IV NOW ONE Aerosol Treatments Routine Oth 01/30/17 11:43 Completed Aerosol Treatments Stat Oth 01/30/17 11:43 Completed Aerosol Treatments Stat Oth 01/30/17 11:43 Completed Pulse Oximetry Stat Oth 01/30/17 11:43 Completed Transfer/Admit Order [TRANSFER] Routine Transfer 01/30/17 14:17 Completed Result Diagrams: 01/30/17 11:41 01/30/17 11:41 - XRAY 1 XRAY Study: Chest Impression: Abnormal XRAY Interpretation: possible small infiltrate or atelectasis in the right base Departure - Departure Time of Disposition Decision: 14:15 DIAGNOSIS: COPD (chronic obstructive pulmonary disease), Pneumonia Disposition: ADMITTED INPATIENT 09 Certified Medical Emergency: Emergent Condition: Stable - Critical Care Note This patient required my direct & personal management of CC.: No This chart was documented by the indicated scribe, (Jennifer Gray, Estel[place]) and accurately reflects the services I performed and decisions made by me, Tian Lara MD, as attested by the provider's signature.
== END 2017-02-04 13:05 | disposition home health service (06) ==
LOC: ED 11:13 → 3N 15:30
PROVIDERS: ADMIT Internal Medicine; ATTEND Internal Medicine

== ENCOUNTER 2017-02-23 15:17 | Inpatient (IN) ==
--- NOTE | 2017-02-23 15:27 | EKG Report ---
Test Performed on : 02/23/2017 3:27:11 PM Test Reason : SOB Blood Pressure : / mmHG Vent. Rate : 096 BPM Atrial Rate : 096 BPM P-R Int : 170 ms QRS Dur : 088 ms QT Int : 350 ms P-R-T Axes : -18 002 049 degrees QTc Int : 442 ms Sinus rhythm. with premature atrial complexes. Nonspecific ST abnormality Abnormal ECG When compared with ECG of 30-JAN-2017 11:32, premature atrial complexes. are now present T wave inversion no longer evident in Anterior leads Unconfirmed Result
[2017-02-23] MEDS ORDERED: ROCEPHIN 1 GM/NS 1 GM/50 ML IVPB IV ONE (15:50)
[2017-02-23] MEDS ORDERED: ZITHROMAX PO ONE (15:53)
--- NOTE | 2017-02-23 15:59 | PROVIDER DOCUMENTATION ---
HPI-Respiratory General - General Chief Complaint: Shortness of Breath Stated Complaint: SOB Time Seen by Provider: 02/23/17 15:40 Source: patient, family, old records Allergies/Adverse Reactions: Patient Allergies Allergy/AdvReac Type Severity Reaction Status Date / Time fenofibrate nanocrystallized Allergy Unknown Verified 02/23/17 16:23 * [From Tricor] fenofibrate,micronized * Allergy Unknown Verified 02/23/17 16:23 [From Tricor] pioglitazone HCl * Allergy Unknown Verified 02/23/17 16:23 [From Actos] piperacillin sodium * Allergy Unknown Verified 02/23/17 16:23 [From Zosyn] tazobactam sodium * Allergy Unknown Verified 02/23/17 16:23 [From Zosyn] Home Medications: Home Medication List Medication Instructions Recorded Confirmed Last Taken Type Amitriptyline [Elavil] 25 mg PO HS 01/22/13 02/23/17 02/22/17 History Aspirin 81 mg PO DAILY 01/22/13 02/23/17 02/22/17 History Armogprs-Iixrzun-Lnll 149-Hyal 1,500 tab PO BID 01/22/13 02/23/17 02/22/17 History [Glucosamine Chondroitin Tablet] Loratadine [Claritin] 10 mg PO DAILY 01/22/13 02/23/17 02/22/17 History Lorazepam 1 mg PO QHS 01/22/13 02/23/17 02/22/17 History Niacin 500 mg PO QHS 01/22/13 02/23/17 02/22/17 History [place]-3 Fatty Acids [Fish Oil] 1,200 mg PO BID 01/22/13 02/23/17 02/22/17 History Propranolol [Inderal] 40 mg PO BID 01/22/13 02/23/17 02/22/17 History Omeprazole [Prilosec] 20 mg PO DAILY@0700 02/22/16 02/23/17 02/22/17 History Vitamin B Complex [B Complex] 1 each PO HS 02/22/16 02/23/17 02/22/17 History Tiotropium [place] Inhaler 1 puff INH RTDAILY 07/12/16 02/23/17 02/22/17 History [Spiriva] Albuterol Sulfate [Proair Hfa] 8.5 gm IH Q4H PRN PRN #1 hfa.aer.ad 07/15/1602/22/17 Rx Acetaminophen [Tylenol] 650 mg PO Q4H PRN PRN #0 tablet 02/04/17 02/23/17 Rx Albuterol 2.5MG/Ipratrop 0.5MG 3 ml INH RTQ4H #180 neb 02/04/17 02/23/17 Rx [Duoneb (A & A)] Allopurinol [Zyloprim] 200 mg PO BID #0 02/04/17 02/23/17 02/22/17 Rx Budesonide/Formoterol Inhaler 2 puff INH RTBID #0 inhaler 02/04/17 02/23/17 Rx [Symbicort 160/4.5 Microgm Inhaler] Ferrous Sulfate 325 mg PO DAILY tablet 02/04/17 02/23/17 02/22/17 Rx Hydrochlorothiazide 12.5 mg PO DAILY #45 tablet 02/04/17 02/23/17 02/22/17 Rx - History of Present Illness-Resp Nature of Presenting Problem: patient reports recurring episodes past few days of chills assoc with worsening dyspnea and prodx "dark" yellow cough. no marcus rigors or hemoptysis. states he did well following recent hosp d/c until nearing completion of Prednisone taper, then symptoms worsened. denies hemoptysis. no chest pain. recent eval incl echo showing moderate , PAH, excellent systolic fx, no PE on chest scan. Review of Systems - Adult - REVIEW OF SYSTEMS - ADULT Constitutional: reports: see HPI Eyes: reports: no symptoms reported Ears, Nose, Mouth & Throat: reports: no symptoms reported Cardiovascular: reports: no symptoms reported Respiratory: reports: see HPI, cough, dyspnea on exertion, excessive sputum production, shortness of breath. denies: hemoptysis Gastrointestinal: reports: no symptoms reported Genitourinary: reports: no symptoms reported Musculoskeletal: reports: no symptoms reported Integumentary: reports: no symptoms reported Neurological: reports: no symptoms reported Psychiatric: reports: no symptoms reported Endocrine: reports: no symptoms reported Hematologic/Lymphatic: reports: no symptoms reported Allergic/Immunologic: reports: no symptoms reported All Other Systems: Reviewed and Negative Past History - Adult - PAST MEDICAL HISTORY-ADULT Review of Records: reports: Old Records Reviewed Major Childhood Illnesses: reports: denies history Cardiovascular: reports: HTN Respiratory: reports: COPD Gastrointestinal: reports: denies history Obstetrical/Gynecological: reports: denies history Genitourinary: reports: kidney stones Musculoskeletal: reports: denies history Neurological: reports: denies history Endocrine/Immune: reports: denies history Other Conditions: reports: denies history - PRIOR SURGERIES/PROCEDURES Surgical/Procedure History: reports: none - IMMUNIZATION STATUS Childhood Immunizations: See Nurse Assessment Flu Vaccine: See Nurse Assessment - FAMILY HISTORY Family History: reviewed, not pertinent Physical Exam-General - PHYSICAL EXAM-ADULT Initial Vital Signs Reviewed: Yes - CONSTITUTIONAL General Appearance: alert, mild distress - EYES Eyes: PERRL/EOMI, pink conjunctivae - HEAD, EARS, NOSE, MOUTH & THROAT HENMT: normocephalic/atraumatic - NECK Neck: full range of motion, normal inspection. negative: lymphadenopathy, meningismus, trachial deviation - RESPIRATORY Respiratory: chest non-tender, no accessory muscle use, decreased breath sounds , increased rate - CARDIOVASCULAR Cardiovascular: normal peripheral pulses, no edema - GASTROINTESTINAL (ABDOMEN) Abdominal Exam: normal bowel sounds, non tender, soft - MUSCULOSKELETAL Back Exam: normal inspection, no CVA tenderness Extremity: normal range of motion - SKIN Integumentary: normal color, normal turgor, warm/dry. 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 as tested, grossly normal, no motor/sensory deficits - PSYCHIATRIC Psych/Mental Status: normal mood/affect, normal thought content Progress - PLAN OF CARE/RESULTS Progress/Plan/Lab Results: Vital Signs - 8 hr 02/23/17 15:28 02/23/17 17:46 Temperature 98.1 F Pulse Rate 96 H 94 H Respiratory Rate 22 19 Blood Pressure 94/64 90/54 O2 Sat by Pulse Oximetry 98 91 L Laboratory Results - last 24 hr 02/23/17 02/23/17 02/23/17 15:48 15:48 15:48 WBC 8.89 RBC 3.72 L Hgb 9.3 L Hct 30.8 L MCV 82.8 MCH 25.0 L MCHC 30.2 L RDW Std Deviation 15.0 H Plt Count 250 MPV 10.6 H Immature Gran % (Auto) 2.5 H Neut % (Auto) 79.0 H Lymph % (Auto) 9.8 L [place] % (Auto) 6.4 Eos % (Auto) 1.9 Baso % (Auto) 0.4 Immature Gran # (Auto) 0.22 H Neut # (Auto) 7.02 H Lymph # (Auto) 0.87 L [place] # (Auto) 0.57 Eos # (Auto) 0.17 Baso # (Auto) 0.04 PT INR PTT (Actin FS) D-Dimer 0.63 H Specimen Type Sample Site pH pCO2 pO2 HCO3 Base Excess Oxyhemoglobin ABG O2 Sat (Calculated) ABG O2 Saturation ABG Carboxyhemoglobin ABG Methemoglobin Karl Test A-a O2 Difference Total Hemoglobin Lactate Liter Flow Blood Gas Modality FiO2 % Sodium 137 Potassium 4.2 Chloride 100 Carbon Dioxide 23 L Anion Gap 14 BUN 26 H Creatinine 1.1 Estimated GFR/1.73 m2 > 60 BUN/Creatinine Ratio 24 Glucose 103 Calculated Osmolality 279 Calcium 9.4 Magnesium 1.9 Total Bilirubin 0.66 AST 21 ALT 17 Alkaline Phosphatase 88 Creatine Kinase 20 L Troponin T Qwn-F-Qtgfbgcwwst Pept Total Protein 6.9 Albumin 3.6 Globulin 3.3 Albumin/Globulin Ratio 1.1 02/23/17 02/23/17 02/23/17 15:48 15:48 15:48 WBC RBC Hgb Hct MCV MCH MCHC RDW Std Deviation Plt Count MPV Immature Gran % (Auto) Neut % (Auto) Lymph % (Auto) [place] % (Auto) Eos % (Auto) Baso % (Auto) Immature Gran # (Auto) Neut # (Auto) Lymph # (Auto) [place] # (Auto) Eos # (Auto) Baso # (Auto) PT 11.2 INR 1.06 PTT (Actin FS) 32.4 D-Dimer Specimen Type Sample Site pH pCO2 pO2 HCO3 Base Excess Oxyhemoglobin ABG O2 Sat (Calculated) ABG O2 Saturation ABG Carboxyhemoglobin ABG Methemoglobin Karl Test A-a O2 Difference Total Hemoglobin Lactate Liter Flow Blood Gas Modality FiO2 % Sodium Potassium Chloride Carbon Dioxide Anion Gap BUN Creatinine Estimated GFR/1.73 m2 BUN/Creatinine Ratio Glucose Calculated Osmolality Calcium Magnesium Total Bilirubin AST ALT Alkaline Phosphatase Creatine Kinase Troponin T < 0.010 Kne-F-Zbqlqyoczxc Pept 2641 H Total Protein Albumin Globulin Albumin/Globulin Ratio 02/23/17 17:15 WBC RBC Hgb Hct MCV MCH MCHC RDW Std Deviation Plt Count MPV Immature Gran % (Auto) Neut % (Auto) Lymph % (Auto) [place] % (Auto) Eos % (Auto) Baso % (Auto) Immature Gran # (Auto) Neut # (Auto) Lymph # (Auto) [place] # (Auto) Eos # (Auto) Baso # (Auto) PT INR PTT (Actin FS) D-Dimer Specimen Type ARTERIAL Sample Site L RADIAL pH 7.44 pCO2 38 pO2 93 HCO3 26.1 H Base Excess 1.6 Oxyhemoglobin 94.0 L ABG O2 Sat (Calculated) 15.3 ABG O2 Saturation 99.2 ABG Carboxyhemoglobin 4.20 H ABG Methemoglobin 1.0 Karl Test YES A-a O2 Difference 116.0 Total Hemoglobin 11.5 Lactate 0.70 Liter Flow 4.0 Blood Gas Modality [place]ULA FiO2 % 36.0 Sodium Potassium Chloride Carbon Dioxide Anion Gap BUN Creatinine Estimated GFR/1.73 m2 BUN/Creatinine Ratio Glucose Calculated Osmolality Calcium Magnesium Total Bilirubin AST ALT Alkaline Phosphatase Creatine Kinase Troponin T Xes-Y-Fnprqpjnxfq Pept Total Protein Albumin Globulin Albumin/Globulin Ratio Orders Category Date Time Status Cardiac Monitoring DIRECTED Care 02/23/17 15:43 Active Oxygen Therapy- ED Nursing DIRECTED Care 02/23/17 15:43 Active CHEST-2 VIEWS [RAD] Stat Exams 02/23/17 15:43 Completed ABG [RESP] Routine Lab 02/23/17 17:15 Completed BLOOD CULTURE [BLDCUL] Stat Lab 02/23/17 16:10 Results CBC WITH ELECTRONIC DIFF [HEME] Stat Lab 02/23/17 15:48 Completed CK PROFILE [SP CHEM] Stat Lab 02/23/17 15:48 Completed COMPREHENSIVE METABOLIC PANEL [CHEM] Stat Lab 02/23/17 15:48 Completed D-DIMER [CHEM] Stat Lab 02/23/17 15:48 Completed MAGNESIUM [CHEM] Stat Lab 02/23/17 15:48 Completed PRO B-NATRIURETIC PEPTIDE Stat Lab 02/23/17 15:48 Completed PROTIME WITH INR [COAG] Stat Lab 02/23/17 15:48 Completed PTT [COAG] Stat Lab 02/23/17 15:48 Completed TROPONIN T Stat Lab 02/23/17 15:48 Completed Azithromycin [Zithromax] Med 02/23/17 15:53 Discontinued 500 mg PO NOW ONE CefTRIAXONE 1 GM/NS [Rocephin 1 gm/Ns] Med 02/23/17 15:50 Discontinued 1 gm in 50 ml IV NOW Methylprednisolone Sod Succ [Solu-Medrol] Med 02/23/17 17:41 Discontinued 125 mg IV NOW ONE EKG [EKG] Stat Ther 02/23/17 15:21 Draft EKG [EKG] Stat Ther 02/23/17 15:43 Ordered discussed w/ Dr. Guerra who will see patient in the ED. Result Diagrams: 02/23/17 15:48 02/23/17 15:48 Departure - Departure Time of Disposition Decision: 17:57 DIAGNOSIS: COPD (chronic obstructive pulmonary disease), COPD (chronic obstructive pulmonary disease) Disposition: ADMITTED INPATIENT 09 Certified Medical Emergency: Emergent Condition: Fair Referrals and Follow-Ups: Scott Guerra MD [Primary Care Provider] - - Critical Care Note This patient required my direct & personal management of CC.: No
--- NOTE | 2017-02-23 16:13 | Diag Imaging Result Doc PS360 ---
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 Considering differences in projection there is been no significant change since 01/30/2017. There has been no apparent change since 08/31/2016. IMPRESSION: Stable chest. Electronically signed by Carlyle Pa 02/23/2017 4:11 PM
[2017-02-23 16:15] LABS: MANUAL DIFF NEEDED? NO
[2017-02-23 16:28] LABS: BASO% 0.4 % (0.0-0.8); EOS# 0.17 X1000 (0.0-0.7); EOS% 1.9 % (0.0-10.0); HEMATOCRIT 30.8 % (42.0-52.0); HEMOGLOBIN 9.3 g/dL (14.0-18.0); IMM GRAN# 0.22 X1000 (0.0-0.04); IMM GRAN% 2.5 % (0.0-0.5); LYMPH# 0.87 X1000 (1.2-3.4); LYMPH% 9.8 % (20.5-51.1); MCHC 30.2 g/dL (33-37); MCV 82.8 FL (81-99); MONO# 0.57 X1000 (0.11-0.59); MONO% 6.4 % (1.7-9.3); MPV 10.6 FL (7.4-10.4); PLT 250 X1000 (130-400); RBC 3.72 XMIL (4.7-6.1)
[2017-02-23 16:35] LABS: INR 1.06; PROTIME 11.2 Seconds (9.2-11.7); PTT 32.4 Seconds (22.0-36.0)
[2017-02-23 16:44] LABS: AGAP 14; ALBUMIN 3.6 g/dL (3.5-5.0); ALKALINE PHOSPHATASE 88 U/L (32-122); BUN 26 mg/dL (8-22); CALCIUM 9.4 mg/dL (8.8-10.2); CHLORIDE 100 mmol/L (98-107); CK PROFILE 20 U/L (24-204); COSMO 279; GOT 21 U/L (10-34); GPT 17 U/L (10-44); MAGNESIUM 1.9 mg/dL (1.5-2.7); POTASSIUM 4.2 mmol/L (3.5-5.1); SODIUM 137 mmol/L (136-145); TCO2 23 mmol/L (25-35); TOTAL BILIRUBIN 0.66 mg/dL (0.20-1.00); TOTAL PROTEIN 6.9 g/dL (6.3-8.3)
[2017-02-23 17:27] LABS: ALLEN TEST YES; BE 1.6 mmoll (-3.0-3.0); BLOOD TYPE ARTERIAL; DRAW SITE L RADIAL; O2(CT) 15.3 mL/dL (15.0-23.0); PCO2(98.6) 38 mmHg (35-45); PO2(98.6) 93 mmHg (60-100); SAMPLE BLOOD; SAO2 99.2 % (95.0-100.0); THB 11.5 g/dL (11.5-17.4); pH(98.6) 7.44 (7.35-7.45)
[2017-02-23 17:28] LABS: MODALITY CANNULA
[2017-02-23] MEDS ORDERED: SOLU-MEDROL IV ONE (17:41)
[2017-02-23] MEDS ORDERED: VENTOLIN HFA INH PRN (19:36)
[2017-02-23] MEDS ORDERED: TYLENOL PO PRN ×2 (19:36)
[2017-02-23] MEDS ORDERED: DUONEB (A & A) INH SCH (19:36)
[2017-02-23] MEDS ORDERED: ZOFRAN IV PRN (19:36)
--- NOTE | 2017-02-23 19:43 | HISTORY AND PHYSICAL ---
PRIMARY CARE PHYSICIAN: Scott Guerra MD CHIEF COMPLAINT: Profound shortness of breath. HISTORY OF PRESENT ILLNESS: An 81-year-old, white male with a complicated past medical history, presents for evaluation of above-mentioned symptoms. Current history of present illness began on January 30. At that time, patient was admitted to [facility] with an acute exacerbation of chronic obstructive pulmonary disease with associated hypoxia. The patient required hospitalization until February 04. He was treated aggressively with Solu-Medrol, bronchodilators, and antibiotic therapy. While here, chest x-ray suggested a questionable small infiltrate versus atelectasis. CT pulmonary angiogram revealed no evidence of embolism. Severe emphysema was identified. Echocardiogram while hospitalized revealed a moderate degree of aortic stenosis. With aggressive treatment, patient's condition ultimately improved. He was discharged home on February 04. Since being home, patient initially did very well. Patient had baseline shortness of breath, but was able to carry on his daily activities. Over the course of approximately 12 days, patient's prednisone was tapered. He tolerated this very well. Patient states upon reaching approximately 15 mg daily, his shortness of breath increased. Over the course of the last 3-4 days, patient's overall condition has declined considerably. He notes increasing shortness of breath with minimal exertion. Yesterday, patient attempted to shower and became significantly short of breath resulting in nausea and vomiting in the shower. He required assistance. The patient did not seek medical attention at that time. This morning, patient again attempted to shower, resulting in a similar episode. The patient states he is unable to walk more than several steps without significant shortness of breath. He complains of wheezing, cough productive of purulent sputum, weakness, and chills. He denies fever at present time. He denies significant sick contacts to his knowledge. He denies chest pains, palpitations, change in bowel movements, and a change in urination. PAST MEDICAL HISTORY: 1. Iron deficiency anemia. 2. History of an abdominal aortic aneurysm. 3. History of right iliac artery aneurysm. 4. Benign prostatic hypertrophy. 5. Abnormal skin examination with multiple nevi. 6. Minimal carotid artery disease. 7. Chronic cholecystitis, status post laparoscopic cholecystectomy in 2000. 8. Chronic obstructive pulmonary disease. 9. [place]onic diverticulosis. 10. Insomnia. 11. Hypertension. 12. Hypertriglyceridemia. 13. Nonalcoholic fatty liver disease. 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 15. Gout. 16. Chronic hypoxia requiring oxygen supplementation. 17. Impaired fasting glucose. 18. Low HDL. 19. Mild mitral regurgitation. 20. History of tobacco use. 21. Osteoarthritis. 22. Palpitations. 23. Pulmonary nodule diagnosed in 2012 status post right upper lobectomy with benign pathology. 24. Thrombocytopenia. CURRENT MEDICATIONS: 1. Allopurinol 200 mg daily. 2. Amitriptyline 25 mg at bedtime. 3. Aspirin 81 mg daily. 4. Claritin 10 mg daily as needed. 5. Iron sulfate 325 mg daily. 6. Fish oil 1000 mg twice daily. 7. Glucosamine and chondroitin twice daily. 8. Lorazepam 1 mg at bedtime. 9. Meloxicam 15 mg daily as needed. 10. Mucinex DM twice daily as needed. 11. Niacin 500 mg at bedtime. 12. ProAir HFA 1-2 puffs every 4-6 hours as needed. 13. Propranolol 20 mg twice daily. 14. Spiriva 1 capsule inhaled daily. ALLERGIES: Actos, doxycycline, TriCor and Zosyn. SOCIAL HISTORY: Patient smoked 1-2 packs per day for 53 years. He stopped in 2004. He denies alcohol or illicit drug use. He is retired from [employer] . He enjoys gardening and watching basketball. He exercises limited lung disease. FAMILY HISTORY: Patient's father passed at age 79 secondary to complications of a hepatoma. Patient's mother passed at age 98 secondary to complications of dementia. She had a history of a stroke. REVIEW OF SYSTEMS: A 12 point review of systems was performed. Pertinent positives and negatives noted in history present illness. PHYSICAL EXAMINATION: VITAL SIGNS: Temperature 98.1 degrees, heart rate 94, respirations 19, blood pressure is 90/54. GENERAL: Chronically ill-appearing, no acute distress. HEENT: Normocephalic, atraumatic. Pupils equal, round, reactive to light. Extraocular muscles intact. Sclerae anicteric. [place] conjunctivae. Oral and nasopharynx clear without exudate. NECK: Supple. No lymphadenopathy. No thyromegaly. No bruits auscultated. CARDIOVASCULAR: Regular rate and rhythm. No significant murmurs, rubs, or gallops. PULMONARY: Distal breath sounds. Prolonged expiratory phase. Compromised air movement. ABDOMEN: Soft, nontender, nondistended. Positive bowel sounds. EXTREMITIES: Moves all extremities well. No significant clubbing, cyanosis, or edema. NEUROLOGIC: Cranial nerves 2-12 grossly intact. Motor and sensory grossly intact. PSYCHOLOGIC: Examination is appropriate. LABORATORY DATA: White blood count 8.89, hemoglobin 9.3, hematocrit 30.8, platelet count 250,000. PT 11.2, INR is 1.06. PTT 32.4. D-dimer 0.63. PH 7.44. PCO2 38. PO2 93. Bicarbonate 26.1, sodium 137, potassium 4.2, chloride 100, bicarb 23, BUN 26, creatinine 1.1, glucose 103, calcium 9.4, total bilirubin 0.66. Total protein 6.9, albumin 3.6, alkaline phosphatase 88, AST 21, ALT 17, CK total is 20, magnesium 1.9. ProBNP 2641. IMAGING: Chest x-ray reveals stable chest. ASSESSMENT AND PLAN: An 81-year-old white male with a complicated past medical history as noted presents for evaluation of shortness of breath. As above, patient recently was admitted with acute exacerbation of COPD. Unfortunately, patient appears to have experienced a relapse. In the setting of profound shortness of breath, hypoxia, and cough productive of purulent sputum, patient will be admitted to the hospital for aggressive measures. 1. Admit to General Medicine. 2. Acute exacerbation of chronic obstructive pulmonary disease-The patient was given Rocephin, azithromycin, nebulized albuterol/Atrovent, and Solu-Medrol in the emergency department. We will continue these as an inpatient. We will plan to initiate steroid titration as acceptable while hospitalized. We will follow his clinical course very closely. Blood cultures and sputum culture will be drawn and followed. 3. Hypoxia-the patient has longstanding disease. He will be treated with oxygen therapy per protocol. We will encourage aspiration precautions and incentive spirometry. This, too, will be followed. 4. Hypertension-patient's blood pressure is marginal at present time. For now, we will continue his current regimen. We will follow this closely. 5. Profound weakness-we will treat patient's acute condition as described above. Once able, we will initiate ambulation. 6. Aortic stenosis-patient has moderate disease. We will remain aware. 7. Impaired fasting glucose-we will start patient on sliding scale insulin while hospitalized. 8. Fluid electrolytes nutrition. We will monitor electrolytes. Saline lock IV. Regular diet. 9. Prophylaxis-patient will be placed on subcutaneous Lovenox. cc: Scott Guerra MD
[2017-02-23] MEDS: ELAVIL PO SCH (20:28)
[2017-02-23] MEDS: NIACIN PO SCH (20:28)
[2017-02-23] MEDS: LOVENOX SUBQ SCH (20:29)
[2017-02-23] MEDS: ZYLOPRIM PO SCH (20:29)
[2017-02-23] MEDS: FISH OIL CONCENTRATE PO SCH (20:29)
[2017-02-23] MEDS: ATIVAN PO SCH (20:29)
[2017-02-23] MEDS: INDERAL PO SCH (20:29)
[2017-02-23] MEDS: PATIENT'S OWN MED PO SCH ×2 (20:40→20:41)
[2017-02-23] MEDS: HUMALOG SUBQ SCH (20:54)
[2017-02-23] MEDS: DUONEB (A & A) INH SCH ×2 (22:42→22:45)
[2017-02-23] MEDS: SYMBICORT 160/4.5 MICROGM INHALER INH SCH (22:45)
[2017-02-24] MEDS: SOLU-MEDROL IV SCH ×3 (02:44→17:33)
[2017-02-24] MEDS: DUONEB (A & A) INH SCH ×6 (04:02→22:56)
[2017-02-24] MEDS: HUMALOG SUBQ SCH ×4 (06:04→21:05)
[2017-02-24] MEDS: PRILOSEC PO SCH (06:47)
[2017-02-24 06:49] LABS: MANUAL DIFF NEEDED? NO
[2017-02-24 06:59] LABS: BASO% 0.2 % (0.0-0.8); HEMATOCRIT 28.5 % (42.0-52.0); HEMOGLOBIN 8.6 g/dL (14.0-18.0); IMM GRAN# 0.14 X1000 (0.0-0.04); IMM GRAN% 2.5 % (0.0-0.5); LYMPH# 0.68 X1000 (1.2-3.4); LYMPH% 12.1 % (20.5-51.1); MCH 24.9 PG (27-31); MCHC 30.2 g/dL (33-37); MCV 82.6 FL (81-99); MONO# 0.04 X1000 (0.11-0.59); MONO% 0.7 % (1.7-9.3); MPV 10.9 FL (7.4-10.4); NEUT% 84.5 % (42.2-75.2); PLT 254 X1000 (130-400); RBC 3.45 XMIL (4.7-6.1)
[2017-02-24 07:12] LABS: AGAP 16; ALBUMIN 3.5 g/dL (3.5-5.0); ALKALINE PHOSPHATASE 83 U/L (32-122); BUN 29 mg/dL (8-22); CALCIUM 9.2 mg/dL (8.8-10.2); CHLORIDE 99 mmol/L (98-107); CK PROFILE 17 U/L (24-204); COSMO 284; GOT 19 U/L (10-34); GPT 16 U/L (10-44); POTASSIUM 4.2 mmol/L (3.5-5.1); SODIUM 138 mmol/L (136-145); TCO2 23 mmol/L (25-35); TOTAL PROTEIN 7.1 g/dL (6.3-8.3)
[2017-02-24] MEDS: SYMBICORT 160/4.5 MICROGM INHALER INH SCH ×2 (07:21→19:42)
[2017-02-24] MEDS: SPIRIVA INH SCH (07:23)
[2017-02-24] MEDS: ZYLOPRIM PO SCH ×2 (09:12→21:36)
[2017-02-24] MEDS: INDERAL PO SCH ×2 (09:12→21:36)
[2017-02-24] MEDS: CLARITIN PO SCH (09:12)
[2017-02-24] MEDS: FISH OIL CONCENTRATE PO SCH ×2 (09:12→21:36)
[2017-02-24] MEDS: HYDROCHLOROTHIAZIDE PO SCH (09:13)
[2017-02-24] MEDS: PATIENT'S OWN MED PO SCH ×3 (09:13→21:38)
[2017-02-24] MEDS: ASPIRIN PO SCH (09:13)
[2017-02-24] MEDS: FERROUS SULFATE PO SCH (09:13)
[2017-02-24] MEDS: ROCEPHIN 1 GM/NS 1 GM/50 ML IVPB IV SCH (16:03)
[2017-02-24] MEDS: ZITHROMAX 500 MG/NS 500 MG/250 ML IVPB IV SCH (16:37)
--- NOTE | 2017-02-24 18:05 | PROGRESS NOTE ---
DATE: 02/24/2017 SUBJECTIVE: The patient was admitted yesterday with acute respiratory failure secondary to an acute exacerbation of chronic obstructive pulmonary disease. The patient was started on Rocephin, azithromycin, nebulized albuterol/Atrovent, and Solu-Medrol. Over the course of the last 24 hours, patient has achieved some improvement in his overall condition. His oxygenation remains stable. He denies fevers or chills at present time. The patient's cough and congestion is stable. He remains quite weak, although this is improving. OBJECTIVE: T-max 98.1 degrees, heart rate 78-99, respirations 14-20, blood pressure 90-118 over 54-79.General: Chronically ill appearing, no acute distress. Cardiovascular: Regular rate and rhythm. No significant murmurs, rubs, or gallops. Pulmonary: Distant breath sounds. Improving air movement. Abdomen: Soft, nontender, nondistended. Positive bowel sounds. Extremities: Moves all extremities well. No significant clubbing, cyanosis, or edema. Dermatologic: Evaluation reveals no evidence of rash. LABORATORY DATA: White blood cell count 5.63, hemoglobin 8.6, hematocrit 28.5, platelet count 254,000. Sodium 138, potassium 4.2, chloride 99, bicarb 23, BUN 29, creatinine 1.0, glucose 151, calcium 9.2, total bilirubin 0.50, total protein 7.1, albumin 3.5, alkaline phosphatase 83, AST 19, ALT 16, CK total is 17. ASSESSMENT AND PLAN: 1. Acute respiratory failure secondary to an acute exacerbation of chronic obstructive pulmonary disease-patient has achieved improvement with Rocephin, azithromycin, nebulized albuterol/Atrovent, and Solu-Medrol. For now, we will continue his current regimen. Should he continue to achieve improvement, we will plan to initiate steroid taper in the a.m. We will continue oxygen per protocol as described below. We will encourage activity. 2. Hypoxia-the patient has longstanding disease. Patient has required an increase in oxygen supplementation while hospitalized. We will continue to follow this as well. 3. Hypertension-patient's blood pressure remains marginal. For now, we will continue his current regimen. 4. Profound weakness-we will continue to encourage activity. This is slowly improving. 5. Aortic stenosis-patient has known moderate aortic stenosis. We will continue to optimize his medical and nonmedical management. 6. Impaired fasting glucose-we will continue patient on sliding scale insulin. Blood sugars have increased with steroid therapy. 7. Disposition-at this point, patient continues to require detention care in a hospital setting. We will plan discharge home once appropriate. cc: Scott Guerra MD MTDD
[2017-02-24] MEDS: LOVENOX SUBQ SCH (21:36)
[2017-02-24] MEDS: ATIVAN PO SCH (21:36)
[2017-02-24] MEDS: ELAVIL PO SCH (21:36)
[2017-02-24] MEDS: NIACIN PO SCH (21:36)
[2017-02-25] MEDS: SOLU-MEDROL IV SCH ×3 (03:04→18:19)
[2017-02-25] MEDS: DUONEB (A & A) INH SCH ×4 (04:00→19:55)
[2017-02-25] MEDS: PRILOSEC PO SCH (06:30)
[2017-02-25] MEDS: HUMALOG SUBQ SCH ×4 (06:30→21:06)
[2017-02-25] MEDS: SPIRIVA INH SCH (07:29)
[2017-02-25] MEDS: SYMBICORT 160/4.5 MICROGM INHALER INH SCH ×2 (07:29→19:55)
[2017-02-25] MEDS: CLARITIN PO SCH (08:14)
[2017-02-25] MEDS: HYDROCHLOROTHIAZIDE PO SCH (08:14)
[2017-02-25] MEDS: FERROUS SULFATE PO SCH (08:14)
[2017-02-25] MEDS: FISH OIL CONCENTRATE PO SCH ×2 (08:14→21:01)
[2017-02-25] MEDS: ASPIRIN PO SCH (08:14)
[2017-02-25] MEDS: INDERAL PO SCH ×2 (08:15→21:01)
[2017-02-25] MEDS: ZYLOPRIM PO SCH ×2 (08:15→21:01)
[2017-02-25] MEDS: PATIENT'S OWN MED PO SCH ×3 (08:16→21:03)
[2017-02-25] MEDS ORDERED: ALBUTEROL NEB INH PRN (09:54)
[2017-02-25] MEDS: ROCEPHIN 1 GM/NS 1 GM/50 ML IVPB IV SCH (15:07)
[2017-02-25] MEDS: ZITHROMAX 500 MG/NS 500 MG/250 ML IVPB IV SCH (16:04)
[2017-02-25] MEDS: ATIVAN PO SCH (21:01)
[2017-02-25] MEDS: ELAVIL PO SCH (21:01)
[2017-02-25] MEDS: LOVENOX SUBQ SCH (21:01)
[2017-02-26] MEDS: DUONEB (A & A) INH SCH ×3 (03:43→19:31)
[2017-02-26] MEDS: SOLU-MEDROL IV SCH ×2 (04:35→17:03)
[2017-02-26] MEDS: HUMALOG SUBQ SCH ×4 (06:34→21:24)
[2017-02-26] MEDS: PRILOSEC PO SCH (06:35)
[2017-02-26] MEDS: HYDROCHLOROTHIAZIDE PO SCH (08:08)
[2017-02-26] MEDS: FISH OIL CONCENTRATE PO SCH ×2 (08:08→21:21)
[2017-02-26] MEDS: ASPIRIN PO SCH (08:08)
[2017-02-26] MEDS: INDERAL PO SCH ×2 (08:08→21:21)
[2017-02-26] MEDS: PATIENT'S OWN MED PO SCH ×3 (08:09→21:22)
[2017-02-26] MEDS: CLARITIN PO SCH (08:09)
[2017-02-26] MEDS: ZYLOPRIM PO SCH ×2 (08:09→21:21)
[2017-02-26] MEDS: FERROUS SULFATE PO SCH (08:09)
[2017-02-26] MEDS: SPIRIVA INH SCH (08:36)
[2017-02-26] MEDS: SYMBICORT 160/4.5 MICROGM INHALER INH SCH ×2 (08:36→19:31)
--- NOTE | 2017-02-26 11:23 | PROGRESS NOTE ---
DATE: 02/26/2017 SUBJECTIVE: The patient was admitted on with acute respiratory failure secondary to acute exacerbation of chronic obstructive pulmonary disease. Patient was placed on antibiotics, IV steroids, and Solu-Medrol. Since hospitalization, patient has done reasonably well. His oxygenation has improved. He states his wheezing and shortness of breath have decreased. He has transitioned down to Solu-Medrol 40 mg IV q.8 hours. His p.o. intake is adequate. He denies fevers, chills, nausea, vomiting, or chest discomfort at the present time. OBJECTIVE: Vital Signs: T-max 98.4 degrees, heart rate 57-96, respirations 18-28, blood pressure 107-122/58-70. General: Chronically ill-appearing, no acute distress. Cardiovascular: Regular rate and rhythm. No significant murmurs, rubs, or gallops. Pulmonary: Distant breath sounds, improving air movement. No wheezing. Abdomen: Soft, nontender, nondistended. Positive bowel sounds. Extremities: Moves all extremities well. No significant clubbing, cyanosis, or edema. Dermatologic: Evaluation reveals no evidence of rash. Laboratory Data: None. ASSESSMENT AND PLAN: 1. Acute respiratory failure secondary to acute exacerbation of chronic obstructive pulmonary disease-as above, patient has achieved significant improvement while hospitalized. We will continue Rocephin, azithromycin, and nebulized albuterol/Atrovent. We will continue a steroid taper decreasing Solu-Medrol to 40 mg every 12 hours. We will follow patient's clinical course closely. 2. Hypoxia-patient has longstanding disease. We will continue oxygen per protocol. 3. Nonsustained ventricular tachycardia-two nights ago, patient had a 3 beat run of ventricular tachycardia. We will continue to monitor patient with telemetry. No intervention has been warranted. 4. Hypertension-we will continue patient's current regimen. Blood pressure is controlled. 5. Profound weakness-the patient is slowly improving. We will encourage activity. 6. Aortic stenosis-patient has known moderate aortic stenosis. We will continue to optimize his medical management. 7. Impaired fasting glucose-patient's blood sugars have increased while on Solu-Medrol. We will continue sliding scale insulin. Blood sugars were reasonably controlled. 8. Disposition-at this point, patient continues to require alf care in the hospital setting. We will plan discharge home once appropriate. cc: Scott Guerra MD
[2017-02-26] MEDS: ROCEPHIN 1 GM/NS 1 GM/50 ML IVPB IV SCH (14:58)
[2017-02-26] MEDS: ZITHROMAX 500 MG/NS 500 MG/250 ML IVPB IV SCH (15:35)
[2017-02-26] MEDS: ATIVAN PO SCH (21:21)
[2017-02-26] MEDS: ELAVIL PO SCH (21:21)
[2017-02-26] MEDS: LOVENOX SUBQ SCH (21:21)
[2017-02-27] MEDS: DUONEB (A & A) INH SCH ×4 (03:32→20:00)
[2017-02-27] MEDS: PRILOSEC PO SCH (06:07)
[2017-02-27] MEDS: SOLU-MEDROL IV SCH ×2 (06:08→17:25)
[2017-02-27] MEDS: HUMALOG SUBQ SCH ×4 (06:09→21:05)
[2017-02-27 06:40] LABS: BASO% 0.3 % (0.0-0.8); HEMATOCRIT 24.8 % (42.0-52.0); HEMOGLOBIN 7.1 g/dL (14.0-18.0); IMM GRAN# 0.44 X1000 (0.0-0.04); IMM GRAN% 3.7 % (0.0-0.5); LYMPH# 0.93 X1000 (1.2-3.4); LYMPH% 7.8 % (20.5-51.1); MANUAL DIFF NEEDED? YES; MCH 24.2 PG (27-31); MCHC 28.6 g/dL (33-37); MCV 84.6 FL (81-99); MONO# 0.57 X1000 (0.11-0.59); MONO% 4.8 % (1.7-9.3); MPV 10.4 FL (7.4-10.4); NEUT% 83.4 % (42.2-75.2); PLT 312 X1000 (130-400); RBC 2.93 XMIL (4.7-6.1)
[2017-02-27 06:53] LABS: AGAP 14; ALBUMIN 3.2 g/dL (3.5-5.0); ALKALINE PHOSPHATASE 65 U/L (32-122); BUN 34 mg/dL (8-22); CALCIUM 8.7 mg/dL (8.8-10.2); CHLORIDE 101 mmol/L (98-107); COSMO 292; GOT 36 U/L (10-34); GPT 44 U/L (10-44); POTASSIUM 3.7 mmol/L (3.5-5.1); SODIUM 142 mmol/L (136-145); TCO2 27 mmol/L (25-35); TOTAL BILIRUBIN 0.31 mg/dL (0.20-1.00)
[2017-02-27 07:09] LABS: HYPOCHROM 2+; LYMPHS 14 % (21-51); MONO 2 % (1-9)
[2017-02-27] MEDS: FISH OIL CONCENTRATE PO SCH ×2 (09:08→21:04)
[2017-02-27] MEDS: INDERAL PO SCH ×2 (09:08→21:04)
[2017-02-27] MEDS: FERROUS SULFATE PO SCH (09:08)
[2017-02-27] MEDS: CLARITIN PO SCH (09:08)
[2017-02-27] MEDS: ZYLOPRIM PO SCH ×2 (09:08→21:04)
[2017-02-27] MEDS: HYDROCHLOROTHIAZIDE PO SCH (09:08)
[2017-02-27] MEDS: ASPIRIN PO SCH (09:09)
[2017-02-27] MEDS: PATIENT'S OWN MED PO SCH ×3 (09:09→21:04)
[2017-02-27] MEDS: SYMBICORT 160/4.5 MICROGM INHALER INH SCH ×2 (09:22→20:00)
[2017-02-27] MEDS: SPIRIVA INH SCH (09:24)
--- NOTE | 2017-02-27 10:30 | PROGRESS NOTE ---
DATE: 02/27/2017 SUBJECTIVE: Overall, the patient states his condition is slightly worse than yesterday. He complains of increasing shortness of breath, as well as increasing fatigue. He states his overall condition is better than upon admission, but not as good as yesterday. He denies current fevers, chills, nausea, vomiting, or chest discomfort. Thus far, he has tolerated medications well. OBJECTIVE: Vital Signs: T-max 98.5 degrees, heart rate 76 to 104, respirations 18 to 24, blood pressure 109 to 122/66 to 79. General: Well nourished, well developed, in no acute distress. Cardiovascular: Regular rate and rhythm with frequent ectopy. No significant murmurs, rubs, or gallops. Pulmonary: Distant breath sounds. Adequate air movement. Abdomen: Soft, nontender, nondistended. Positive bowel sounds. Extremities: Moves all extremities well. No significant clubbing, cyanosis, or edema. Dermatologic evaluation reveals no evidence of rash. LABORATORY DATA: White blood cell count 11.99, hemoglobin 7.1, hematocrit 24.8, platelet count 312,000. Sodium 142, potassium 3.7, chloride 101, bicarb 27, BUN 34, creatinine 0.8, glucose 123, calcium 8.7. Total bilirubin 0.31, total protein 6.0, albumin 3.2, alkaline phosphatase 65, AST 36, ALT 44. ASSESSMENT AND PLAN: 1. Acute respiratory failure secondary to acute exacerbation of chronic obstructive pulmonary disease. As above, the patient's condition is slightly worse than yesterday. At this point, we will continue his current regimen of Rocephin, azithromycin, nebulized albuterol and Atrovent, and Solu-Medrol. We will treat the patient's underlying anemia as described below. Should the patient's condition resume improving, we will re-initiate steroid taper in the morning. 2. Hypoxia. We will continue the patient on oxygen per protocol. 3. Symptomatic anemia. Interestingly, the patient's hemoglobin and hematocrit have decreased while hospitalized. He denies any evidence of blood loss, including gastrointestinal. We will check an anemia panel. We will Hemoccult all stools. We will transfuse 1 unit of packed red blood cells. We will follow this closely as well. 4. Nonsustained ventricular tachycardia. This occurred. The patient has had 1 nonsustained 3- beat run of ventricular tachycardia while hospitalized. He remains asymptomatic. He does continue to have frequent ectopy. 5. Hypertension. The patient's blood pressure is controlled on his current regimen. 6. Profound weakness. I suspect this is multifactorial. We will treat anemia as above. We will follow this. 7. Aortic stenosis. The patient has a known moderate aortic stenosis. We will continue to optimize his medical management. 8. Impaired fasting glucose. We will continue the patient on sliding scale insulin while on Solu- Medrol. 9. Disposition. At this point, the patient continues to require [facility] care in the hospital setting. We will plan discharge home once appropriate. cc: Scott Guerra MD
[2017-02-27 10:32] LABS: IRON SATURATION 6 %; TIBC 329 ug/dL; TOTAL IRON 20 ug/dL (53-167); UNBOUND IRON 309 ug/dL (112-346)
[2017-02-27 11:54] LABS: FERRITIN 44 ng/mL (30-400)
[2017-02-27] MEDS ORDERED: NS 250 ML ONE (12:14)
[2017-02-27] MEDS: ZITHROMAX 500 MG/NS 500 MG/250 ML IVPB IV SCH (15:38)
[2017-02-27] MEDS: ROCEPHIN 1 GM/NS 1 GM/50 ML IVPB IV SCH (15:39)
[2017-02-27] MEDS: ATIVAN PO SCH (21:03)
[2017-02-27] MEDS: ELAVIL PO SCH (21:04)
[2017-02-28] MEDS: DUONEB (A & A) INH SCH ×3 (03:10→15:36)
[2017-02-28] MEDS: SOLU-MEDROL IV SCH (05:03)
[2017-02-28 06:25] LABS: BASO% 0.5 % (0.0-0.8); HEMATOCRIT 27.3 % (42.0-52.0); HEMOGLOBIN 8.3 g/dL (14.0-18.0); IMM GRAN# 0.47 X1000 (0.0-0.04); IMM GRAN% 4.3 % (0.0-0.5); LYMPH# 1.22 X1000 (1.2-3.4); LYMPH% 11.2 % (20.5-51.1); MANUAL DIFF NEEDED? YES; MCH 25.3 PG (27-31); MCHC 30.4 g/dL (33-37); MCV 83.2 FL (81-99); MONO# 0.76 X1000 (0.11-0.59); MONO% 6.9 % (1.7-9.3); MPV 10.2 FL (7.4-10.4); NEUT% 77.1 % (42.2-75.2); PLT 275 X1000 (130-400); RBC 3.28 XMIL (4.7-6.1)
[2017-02-28] MEDS: PRILOSEC PO SCH (06:52)
[2017-02-28] MEDS: HUMALOG SUBQ SCH ×3 (06:53→16:24)
[2017-02-28 06:55] LABS: AGAP 15; ALBUMIN 3.2 g/dL (3.5-5.0); ALKALINE PHOSPHATASE 73 U/L (32-122); BUN 32 mg/dL (8-22); CALCIUM 8.6 mg/dL (8.8-10.2); CHLORIDE 99 mmol/L (98-107); COSMO 287; GOT 35 U/L (10-34); GPT 48 U/L (10-44); POTASSIUM 3.3 mmol/L (3.5-5.1); SODIUM 140 mmol/L (136-145); TCO2 26 mmol/L (25-35); TOTAL BILIRUBIN 0.36 mg/dL (0.20-1.00); TOTAL PROTEIN 5.5 g/dL (6.3-8.3)
[2017-02-28 06:59] LABS: HYPOCHROM 2+; LYMPHS 4 % (21-51); MONO 6 % (1-9); NRBC 1 % (0-0)
[2017-02-28] MEDS: SPIRIVA INH SCH (08:06)
[2017-02-28] MEDS: SYMBICORT 160/4.5 MICROGM INHALER INH SCH (08:06)
[2017-02-28] MEDS ORDERED: PREDNISONE PO ONE (08:39)
[2017-02-28] MEDS ORDERED: FOLIC ACID PO SCH (09:00)
[2017-02-28] MEDS: FISH OIL CONCENTRATE PO SCH ×2 (09:21→20:04)
[2017-02-28] MEDS: ASPIRIN PO SCH (09:22)
[2017-02-28] MEDS: HYDROCHLOROTHIAZIDE PO SCH (09:22)
[2017-02-28] MEDS: INDERAL PO SCH ×2 (09:22→20:04)
[2017-02-28] MEDS: PATIENT'S OWN MED PO SCH ×3 (09:22→20:05)
[2017-02-28] MEDS: FERROUS SULFATE PO SCH ×2 (09:22→20:04)
[2017-02-28] MEDS: ZYLOPRIM PO SCH ×2 (09:22→20:04)
[2017-02-28] MEDS: CLARITIN PO SCH (09:22)
[2017-02-28] MEDS ORDERED: ROCEPHIN 1 GM/NS 1 GM/50 ML IVPB ONE (12:36)
[2017-02-28 14:52] VITALS: BP 124/78
[2017-02-28] MEDS: ZITHROMAX 500 MG/NS 500 MG/250 ML IVPB IV SCH (16:23)
[2017-02-28] MEDS: ROCEPHIN 1 GM/NS 1 GM/50 ML IVPB IV SCH (16:24)
--- NOTE | 2017-02-28 22:38 | DISCHARGE SUMMARY ---
ADMISSION DATE: 02/23/2017 DISCHARGE DATE: 02/28/2017 ADMISSION DIAGNOSIS: Profound shortness of breath. DISCHARGE DIAGNOSES: 1. Acute respiratory failure secondary to acute exacerbation of chronic obstructive pulmonary disease. 2. Hypoxia, present on arrival. 3. Symptomatic anemia with associated folic acid and iron deficiencies. 4. Nonsustained ventricular tachycardia. 5. Hypertension, present on arrival. 6. Aortic stenosis, present on arrival. 7. Impaired fasting glucose, present on arrival. CONSULTATIONS: None. PROCEDURES: A chest x-ray was performed on 02/23/2017 which revealed a stable chest. HISTORY AND PHYSICAL EXAMINATION: See admit note. PHYSICAL EXAMINATION PRIOR TO DISCHARGE: Vital Signs: Temperature 98.2 degrees, heart rate 97, respirations 22, blood pressure is 124/78. General: Well nourished, well developed, in no acute distress. Cardiovascular: Regular rate and rhythm. No significant murmurs, rubs, or gallops. Pulmonary: Distant breath sounds. Clear to auscultation bilaterally. Abdomen: Soft, nontender, nondistended. Positive bowel sounds. Extremities: Moves all extremities well. No significant clubbing, cyanosis, or edema. Dermatologic: Evaluation reveals no evidence of rash. LABORATORY DATA: Prior to discharge. White blood cell count 10.94, hemoglobin 8.3, hematocrit 27.3, platelet count 275,000. Sodium 140, potassium 3.3, chloride 99, bicarb 26, BUN 32, creatinine 0.8, glucose 104, calcium 8.6, total bilirubin 0.36, total protein 5.5, albumin 3.2, alkaline phosphatase 73, AST 35, ALT 48. HOSPITAL COURSE: Patient was admitted as per history and physical examination. Hospital course per condition is as follows. 1. Acute respiratory failure secondary to acute exacerbation of chronic obstructive pulmonary disease-upon admission, patient was noted to have profound shortness of breath and significant respiratory compromise. The patient was treated aggressively while in the emergency department with Solu-Medrol, albuterol/Atrovent nebulizer, oxygen therapy, and antibiotics. While hospitalized, the patient was continued on IV steroids with a tapering dose. Antibiotics and bronchodilators were continued. At time of discharge, patient had transitioned to prednisone therapy. Patient will be discharged on a prednisone taper. Once 10 mg is reached, he will continue his daily thereafter. In addition, patient will be continued on albuterol and Atrovent nebulizers every 4 hours and a prescription for levofloxacin will be continued for an additional week. 2. Hypoxia-patient has chronic hypoxia. On admission, the patient did have an exacerbation. The patient will be discharged home with oxygen supplementation. 3. Symptomatic anemia-while hospitalized, patient was noted to have a significant anemia. He required 1 unit of packed red blood cells. Anemia panel revealed an iron and folic acid deficiency. Hemoccult returned positive. The patient will be discharged home with an increased dose of iron sulfate twice daily. Folic acid has been initiated. We will plan GI consultation in the near future once his pulmonary condition has stabilized. 4. Nonsustained ventricular tachycardia-while hospitalized the patient had one 3-beat run of ventricular tachycardia. He was asymptomatic. We will remain aware. 5. Hypertension-patient was continued on his home medications while hospitalized with adequate response. 6. Profound weakness. On admission, patient was noted to be profoundly weak. With treatment, he achieved improvement, although not back to baseline. We will continue to encourage activity. 7. Aortic stenosis-patient has known moderate aortic stenosis. His medications have been optimized. 8. Impaired fasting glucose-patient has longstanding disease. With the addition of steroids, patient's blood sugar increased. He was covered with sliding scale insulin while hospitalized. The patient will be discharged home with close followup. DISCHARGE CONDITION: Stable. DISPOSITION: Discharge to home. MEDICATIONS: 1. Folic acid 1 mg daily. 2. Levofloxacin 500 mg daily for 7 days. 3. Prednisone 60 mg starting day 1 decreasing 5 mg until 10 mg is reached. At that time, patient is to continue 10 mg daily. 4. Lorazepam 1 mg at bedtime. 5. Propranolol 40 mg twice daily. 6. Niacin 500 mg at bedtime. 7. Glucosamine and chondroitin twice daily. 8. [place]-3 fish oil 1200 mg twice daily. 9. Aspirin 81 mg daily. 10. Amitriptyline 25 mg at bedtime. 11. Omeprazole 20 mg daily. 12. Vitamin B complex at bedtime. 13. Spiriva 1 capsule inhaled daily. 14. ProAir HFA 1-2 puffs every 4-6 hours as needed. 15. Acetaminophen 650 mg every 4 hours as needed. 16. DuoNeb every 4 hours. 17. Symbicort 160/4.5 two puffs twice daily. 18. Hydrochlorothiazide 12.5 mg daily. 19. Allopurinol 200 mg twice daily. 20. Iron sulfate 325 mg twice daily. 21. Loratadine 10 mg daily as needed. FOLLOWUP: I would like to have patient return to clinic in approximately 1 week. cc: Scott Guerra MD
== END 2017-02-28 20:51 | disposition home health service (06) ==
LOC: ED 15:17 → 3N 18:43
PROVIDERS: ADMIT Internal Medicine; ATTEND Internal Medicine

== ENCOUNTER 2019-05-24 14:40 | Inpatient (IN) ==
[2019-05-24] MEDS ORDERED: TYLENOL PO PRN (16:19)
[2019-05-24] MEDS: LOVENOX SUBQ SCH (16:57)
[2019-05-24] MEDS: LEVAQUIN 500 MG/D5W 500 MG/100 ML IVPB IV SCH (16:57)
[2019-05-24] MEDS: MAXIPIME 1 GM in NS 50 ML IV SCH (16:57)
[2019-05-24 17:41] LABS: BASO# 0.05 X1000 (0.0-0.2); BASO% 0.3 % (0.0-0.8); HEMATOCRIT 42.6 % (42.0-52.0); HEMOGLOBIN 14.7 g/dL (14.0-18.0); IMM GRAN# 0.31 X1000 (0.0-0.04); IMM GRAN% 1.7 % (0.0-0.5); LYMPH# 1.28 X1000 (1.2-3.4); LYMPH% 7.1 % (20.5-51.1); MCH 32.9 PG (27-31); MCHC 34.5 g/dL (33-37); MCV 95.3 FL (81-99); MONO# 0.83 X1000 (0.11-0.59); MONO% 4.6 % (1.7-9.3); MPV 11.6 FL (7.4-10.4); NEUT# 15.54 X1000 (1.4-6.5); NEUT% 86.3 % (42.2-75.2); PLT 150 X1000 (130-400); RBC 4.47 XMIL (4.7-6.1); RDW 14.1 % (11.5-14.5); WBC 18.01 X1000 (4.8-10.8)
--- NOTE | 2019-05-24 17:42 | Diag Imaging Result Doc PS360 ---
EXAM: CHEST-2 VIEWS HISTORY: Shortness of breath and fever TECHNIQUE: Chest two views COMPARISON: 01/23/2019 FINDINGS: The lungs are well expanded. The heart is not enlarged. The vessels are not distended. There are no infiltrates. There is scarring in the lower right lung and pleural thickening. No pleural effusions. IMPRESSION: Stable chest Electronically signed by Connor Allen 05/24/2019 5:39 PM
[2019-05-24 17:51] LABS: LARGE PLATELETS OCCASIONAL; LYMPHS 6 % (21-51); MONO 3 % (1-9); SEGS 91 % (42-75)
[2019-05-24 17:54] LABS: AGAP 12; ALB/GLOB RATIO 1.6; ALBUMIN 4.2 g/dL (3.5-5.0); ALKALINE PHOSPHATASE 57 U/L (32-122); BUN 24 mg/dL (8-22); CALCIUM 9.8 mg/dL (8.8-10.2); CHLORIDE 102 mmol/L (98-107); COSMO 285; ESTIMATED GFR > 60; GLUCOSE 133 mg/dL (70-104); GOT 17 U/L (10-34); GPT 19 U/L (10-44); POTASSIUM 3.5 mmol/L (3.5-5.1); SODIUM 140 mmol/L (136-145); TCO2 26 mmol/L (25-35); TOTAL BILIRUBIN 2.77 mg/dL (0.20-1.00); TOTAL PROTEIN 6.9 g/dL (6.3-8.3)
[2019-05-24] MEDS ORDERED: CLARITIN PO PRN (19:41)
[2019-05-24] MEDS: DUONEB (A & A) INH SCH ×2 (19:47→23:53)
[2019-05-24] MEDS ORDERED: NS 1,000 ML IV SCH (20:15)
--- NOTE | 2019-05-24 20:39 | HISTORY AND PHYSICAL ---
PRIMARY CARE PHYSICIAN: Dr. Scott Guerra. CHIEF COMPLAINT: Fever. HISTORY OF PRESENT ILLNESS: An 83-year-old white male, with a complicated past medical history, who presents for evaluation of above-mentioned symptoms. History of present illness began approximately 7 to 10 days ago. At that time, patient developed an intermittent cough. Over the course of the last week to 10 days, patient has developed progressive weakness. Yesterday evening, patient developed a chill. His temperature was taken and returned at 100.7. The patient wrapped himself in a blanket. The chill lasted a short time and resolved spontaneously. This morning, patient awoke feeling reasonably well, but with persistent cough. Fever had resolved. Because of his persistent cough, he presented to my office for further evaluation and management. Upon arrival, patient was noted to be quite weak. The patient's white blood cell count was noted to be significantly elevated. The patient will be admitted to the hospital for full evaluation and management of underlying pneumonia with associated chronic obstructive pulmonary disease exacerbation. Of note, the patient's cough is intermittently productive of a purulent sputum. He notes intermittent wheezing, although not largely above baseline. He denies any sick contacts. Shortness of breath has increased above baseline. PAST MEDICAL HISTORY: 1. Chronic anemia, secondary to iron and folic acid deficiencies. 2. Abdominal aortic aneurysm. 3. History of aortic stenosis, status post intravascular intervention in March 2018. 4. Benign prostatic hypertrophy, status post TURP in 2000. 5. History of multiple seborrheic keratoses and actinic keratoses. 6. Carotid artery disease. 7. History of chronic cholecystitis, status post laparoscopic cholecystectomy in 2000, without postoperative complications to date. 8. Severe chronic obstructive pulmonary disease. 9. Colonic diverticulosis. 10. History of insomnia. 11. Hypertension. 12. Hypertriglyceridemia. 13. Nonalcoholic fatty liver disease. 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 15. Gout. 16. Hyperlipidemia. 17. Chronic hypoxia, requiring oxygen supplementation. 18. Impaired fasting glucose. 19. History of a right inguinal hernia. He has not required surgical intervention to date. 20. Low HDL. 21. Mild mitral regurgitation. 22. History of significant tobacco use, currently using oral tobacco. 23. Presumed obstructive sleep apnea. 24. Osteoarthritis. 25. Palpitations. 26. History of a pulmonary nodule, status post wedge resection in the right upper lobe in 2011, with negative pathology. 27. Thrombocytopenia. CURRENT MEDICATIONS: 1. Allopurinol 200 mg twice daily. 2. Amitriptyline 25 mg at bedtime. 3. Aspirin 81 mg daily. 4. B-complex vitamin at bedtime. 5. Iron sulfate 325 mg twice daily. 6. Fish oil 1000 mg twice daily. 7. Folic acid 1 mg daily. 8. Glucosamine and chondroitin twice daily. 9. Hydrochlorothiazide 12.5 mg daily. 10. DuoNeb every 4 hours while awake. 11. Lorazepam 1 mg at bedtime. 12. Mucinex DM twice daily as needed. 13. Niacin 500 mg at bedtime. 14. Pantoprazole 40 mg daily. 15. Prednisone 10 mg daily. 16. ProAir HFA as needed. 17. Propranolol 40 mg twice daily. 18. Spiriva 1 capsule inhaled daily. 19. Symbicort 160/4.5 two puffs twice daily. ALLERGIES: Patient states he is allergic to Actos, which causes fatigue; doxycycline, which causes fatigue; Tricor, which is ineffective; Zofran, which caused a syncopal episode; and Zosyn, which causes a rash. SOCIAL HISTORY: The patient smoked 1 to 2 packs per day for 53 years. He stopped in 2004. He currently uses oral tobacco. He denies alcohol or illicit drug use. He is retired from [employer]. He enjoys gardening and watching basketball. He is unable to exercise secondary to his advanced lung disease. FAMILY HISTORY: Patient's father passed at age 79 secondary to complications of a hepatoma. Patient's mother passed at age 98 secondary to complications of dementia. She had a history of a stroke. REVIEW OF SYSTEMS: A 12 point review of systems was performed. Pertinent positives and negatives are noted in the History of Present Illness. PHYSICAL EXAMINATION: VITAL SIGNS: Temperature 98.5 degrees, heart rate 76, respirations 17, blood pressure is 93/58. GENERAL: Chronically ill appearing, no acute distress. HEENT: Normocephalic, atraumatic. Pupils equal, round, and reactive to light. Extraocular muscles intact. Sclerae anicteric. Arma conjunctivae. Oral and nasopharynx clear without exudate. NECK: Supple. No lymphadenopathy. No thyromegaly. No bruits auscultated. CARDIOVASCULAR: Regular rate and rhythm. No significant murmurs, rubs, or gallops. PULMONARY: Distant breath sounds. Occasional wheeze. Prolonged expiratory phase. ABDOMEN: Soft, nontender, nondistended. Positive bowel sounds. EXTREMITIES: Moves all extremities well. No significant clubbing, cyanosis, or edema. NEUROLOGIC: Cranial nerves 2 through 12 grossly intact. Motor and sensory grossly intact. Psychologic examination appropriate. LABORATORY DATA: White blood cell count 18.01, hemoglobin 14.7, hematocrit 42.6, platelet count 150,000. Sodium 140, potassium 3.5, chloride 102, bicarb 26, BUN 24, creatinine 1.0, glucose 133, calcium 9.8, total bilirubin 2.77, total protein 6.9, albumin 4.2, alkaline phosphatase 57, AST 17, ALT 19. Chest x-ray reveals scarring in the lower right lung and pleural thickening. No pleural effusion. ASSESSMENT AND PLAN: An 83-year-old white male with a very complicated past medical history, who presents for evaluation of fevers and progressive cough. With patient's extensive and severe pulmonary disease, underlying pneumonia with exacerbation of his severe chronic obstructive pulmonary disease is most likely. Patient will be admitted to the hospital for full evaluation and management of this condition. 1. Admit to General Medicine. 2. Community acquired pneumonia. At last hospitalization, patient's sputum grew Enterobacter. This was sensitive to cefepime, Amikacin, imipenem, Bactrim, and Zosyn. Patient will be started on bronchodilators. We will check blood cultures and sputum cultures. We will initiate cefepime and levofloxacin therapy. We will treat chronic obstructive pulmonary disease exacerbation as below. 3. Acute exacerbation of chronic obstructive pulmonary disease. Patient has advanced disease. We will increase patient's steroids to Solu-Medrol 20 q.12. We will continue bronchodilators. We will treat probable infection as described above. 4. Hypoxia. We will continue patient on oxygen per protocol. His oxygen demands are slowly increasing with time. 5. Profound weakness. Unfortunately, this is also progressive. Patient has, however, experienced a significant exacerbation with his acute illness. We will treat as above. 6. Hypertension. He is currently treated with propranolol therapy. Blood pressure is slightly low. We will continue propranolol as I suspect this is helping with his rate. We will start patient on intravenous fluids. 7. Hyperlipidemia/hypertriglyceridemia. We will remain aware. 8. Impaired fasting glucose. Patient currently is treated nonmedically. We will follow blood sugars while hospitalized with increasing steroids. 9. Fluids, electrolytes, nutrition. We will monitor electrolytes. Normal saline at KVO. Regular diet. 10. Prophylaxis. Patient will be placed on subcutaneous Lovenox. cc: Scott Guerra MD
[2019-05-25] MEDS: DUONEB (A & A) INH SCH ×6 (03:49→22:36)
[2019-05-25] MEDS: MAXIPIME 1 GM in NS 50 ML IV SCH ×2 (04:55→17:36)
[2019-05-25] MEDS: VICON-C PO SCH ×2 (05:05→21:23)
[2019-05-25] MEDS: ZYLOPRIM PO SCH ×3 (05:05→21:23)
[2019-05-25] MEDS: INDERAL PO SCH ×3 (05:05→21:23)
[2019-05-25] MEDS: FERROUS SULFATE PO SCH ×3 (05:05→21:23)
[2019-05-25] MEDS: ATIVAN PO SCH ×2 (05:06→21:23)
[2019-05-25] MEDS: NIASPAN PO SCH ×2 (05:06→21:23)
[2019-05-25] MEDS: FISH OIL CONCENTRATE PO SCH ×3 (05:06→21:23)
[2019-05-25] MEDS: ELAVIL PO SCH ×2 (05:06→21:22)
[2019-05-25] MEDS: GLUCOSAMINE 500 MG/CHONDROITIN 400 MG PO SCH ×3 (05:06→21:22)
[2019-05-25] MEDS: SOLU-MEDROL IV SCH ×2 (05:30→17:35)
[2019-05-25] MEDS: PROTONIX PO SCH ×2 (05:30→07:37)
[2019-05-25] MEDS: SPIRIVA INH SCH (07:35)
[2019-05-25] MEDS: SYMBICORT 160/4.5 MICROGM INHALER INH SCH ×2 (08:12→19:48)
[2019-05-25] MEDS: HYDROCHLOROTHIAZIDE PO SCH (10:11)
[2019-05-25] MEDS: FOLIC ACID PO SCH (10:11)
[2019-05-25] MEDS: ASPIRIN PO SCH (10:13)
--- NOTE | 2019-05-25 11:30 | PROGRESS NOTE ---
DATE: 05/25/2019 PRIMARY CARE PHYSICIAN: Dr. Scott Guerra. SUBJECTIVE: The patient was admitted yesterday with presumed pneumonia with associated leukocytosis and fever. Patient was placed on broad-spectrum antibiotics per previous sputum cultures. Overnight, patient states he did reasonably well. He has had no evidence of fevers. His shortness of breath is present, but approaching baseline. Cough is present, but also improving. He denies chills, nausea, vomiting, or chest discomfort. OBJECTIVE: Vital Signs: T-max 98.4 degrees, heart rate 62 to 77, respirations 17 to 28, blood pressure 93 to 114/55 to 60. General: Chronically ill appearing, no acute distress. Cardiovascular: Regular rate and rhythm with frequent ectopy. No significant murmurs, rubs, or gallops. Pulmonary: Crackles at the right base. Occasional wheeze. Abdomen: Soft, nontender, nondistended. Positive bowel sounds. Extremities: Moves all extremities well. No significant clubbing, cyanosis, or edema. Dermatologic: Evaluation reveals no evidence of rash. LABORATORY DATA: None. ASSESSMENT AND PLAN: 1. Community-acquired pneumonia--this is a presumed diagnosis secondary to leukocytosis, fever, and abnormal chest x-ray. Previous sputum cultures have grown Enterobacter. For this reason, he is being treated with broad-spectrum antibiotics in the form of cefepime and levofloxacin therapy. We will continue each of these. We will follow blood and sputum cultures. We will follow this closely. 2. Acute exacerbation of chronic obstructive pulmonary disease--the patient is approaching baseline. We will continue Solu-Medrol 20 every 12 hours. We will continue bronchodilators. We will encourage incentive spirometry and aspiration precautions. 3. Hypoxia--patient has longstanding disease. We will continue oxygen per protocol. 4. Profound weakness--the patient has experienced an exacerbation associated with his acute illness. We will encourage out of bed for all meals. We will follow this. 5. Hypertension--patient is currently being treated with propranolol therapy. Blood pressure is reasonably controlled. 6. Hyperlipidemia/hypertriglyceridemia--we will remain aware. 7. Impaired fasting glucose--we will remain aware with increasing steroids. 8. Disposition--at this point, patient continues to require shelter care in a hospital setting. We will plan discharge home once appropriate. cc: Scott Guerra MD
[2019-05-25] MEDS: LOVENOX SUBQ SCH (17:36)
[2019-05-25] MEDS: LEVAQUIN 500 MG/D5W 500 MG/100 ML IVPB IV SCH (17:36)
[2019-05-26] MEDS: DUONEB (A & A) INH SCH ×6 (03:29→22:30)
[2019-05-26] MEDS: MAXIPIME 1 GM in NS 50 ML IV SCH ×2 (04:36→16:17)
[2019-05-26] MEDS: SOLU-MEDROL IV SCH ×2 (04:36→16:18)
[2019-05-26] MEDS: PROTONIX PO SCH (06:03)
[2019-05-26] MEDS: SPIRIVA INH SCH (07:38)
[2019-05-26] MEDS: SYMBICORT 160/4.5 MICROGM INHALER INH SCH ×2 (07:39→19:19)
[2019-05-26] MEDS: HYDROCHLOROTHIAZIDE PO SCH (08:46)
[2019-05-26] MEDS: ZYLOPRIM PO SCH ×2 (08:48→22:41)
[2019-05-26] MEDS: INDERAL PO SCH ×2 (08:48→22:41)
[2019-05-26] MEDS: FERROUS SULFATE PO SCH ×2 (08:48→22:41)
[2019-05-26] MEDS: GLUCOSAMINE 500 MG/CHONDROITIN 400 MG PO SCH ×2 (08:48→22:40)
[2019-05-26] MEDS: ASPIRIN PO SCH (08:48)
[2019-05-26] MEDS: FOLIC ACID PO SCH (08:48)
[2019-05-26] MEDS: FISH OIL CONCENTRATE PO SCH ×2 (08:48→22:40)
--- NOTE | 2019-05-26 13:29 | PROGRESS NOTE ---
DATE: 05/26/2019 SUBJECTIVE: Over the course of the last 24 hours, patient states he has done reasonably well. His energy level is slowly improving. He continues to have cough and congestion, although this has decreased. Shortness of breath is approaching baseline. He denies fevers, chills, nausea, vomiting, or chest discomfort. OBJECTIVE: T-max 98.4 degrees, heart rate 74 to 97, respirations 16 to 2, blood pressure 110 to 144/60 to 83.General: Chronically ill appearing, no acute distress. Cardiovascular: Regular rate and rhythm. No significant murmurs, rubs, or gallops. Pulmonary: Distant breath sounds. Occasional wheeze and crackles at bilateral bases, improving. Abdomen: Soft, nontender, nondistended. Positive bowel sounds. Extremities: Moves all extremities well. No significant clubbing, cyanosis, or edema. Dermatologic: Evaluation reveals no evidence of rash. LABORATORY DATA: None. ASSESSMENT AND PLAN: 1. Community acquired pneumonia-this is a presumed diagnosis in setting of leukocytosis, fever, and abnormal chest x-ray. Blood cultures thus far are negative. Clinically, he is improving with cefepime and levofloxacin therapy. We will continue aggressive management. We will treat acute exacerbation of chronic obstructive pulmonary disease as described below. 2. Acute exacerbation of chronic obstructive pulmonary disease-the patient has advanced COPD. Increasing shortness of breath upon admission were likely secondary to a combination of pneumonia and acute exacerbation. The patient is currently being treated with Solu-Medrol 20 mg IV q. 12 hours, bronchodilators as prescribed for home were continued. He has achieved improvement while hospitalized. We will continue current regimen. We will also encourage routine incentive spirometry and aspiration precautions. 3. Hypoxia-this is chronic. Patient is treated with oxygen per protocol. He is approaching baseline. 4. Profound weakness - The patient has achieved some improvement since hospitalization. We will continue to encourage activity. We will treat acute illnesses as described above. 5. Hypertension-patient's blood pressure is reasonably controlled on his current regimen. 6. Hyperlipidemia/hypertriglyceridemia-we will remain aware. 7. Impaired fasting glucose-we will remain aware. 8. Disposition-at this point, patient continues to require shelter care in a hospital setting. We will plan discharge home once appropriate. cc: Scott Guerra MD
[2019-05-26] MEDS: LOVENOX SUBQ SCH (16:19)
[2019-05-26] MEDS: LEVAQUIN 500 MG/D5W 500 MG/100 ML IVPB IV SCH (17:28)
[2019-05-26] MEDS: VICON-C PO SCH (22:41)
[2019-05-26] MEDS: NIASPAN PO SCH (22:41)
[2019-05-26] MEDS: ELAVIL PO SCH (22:41)
[2019-05-26] MEDS: ATIVAN PO SCH (23:03)
[2019-05-27] MEDS: DUONEB (A & A) INH SCH ×2 (03:17→07:57)
[2019-05-27] MEDS: MAXIPIME 1 GM in NS 50 ML IV SCH (04:55)
[2019-05-27] MEDS: SOLU-MEDROL IV SCH (04:55)
[2019-05-27] MEDS: PROTONIX PO SCH (06:06)
[2019-05-27 06:47] LABS: BASO# 0.03 X1000 (0.0-0.2); BASO% 0.2 % (0.0-0.8); HEMATOCRIT 38.3 % (42.0-52.0); HEMOGLOBIN 13.2 g/dL (14.0-18.0); IMM GRAN# 0.34 X1000 (0.0-0.04); IMM GRAN% 2.8 % (0.0-0.5); LYMPH# 0.88 X1000 (1.2-3.4); LYMPH% 7.2 % (20.5-51.1); MCHC 34.5 g/dL (33-37); MCV 95.8 FL (81-99); MONO# 0.53 X1000 (0.11-0.59); MONO% 4.4 % (1.7-9.3); MPV 11.4 FL (7.4-10.4); NEUT# 10.37 X1000 (1.4-6.5); NEUT% 85.4 % (42.2-75.2); PLT 145 X1000 (130-400); RDW 13.7 % (11.5-14.5); WBC 12.15 X1000 (4.8-10.8)
[2019-05-27 06:50] LABS: AGAP 11; ALB/GLOB RATIO 1.6; ALBUMIN 3.7 g/dL (3.5-5.0); ALKALINE PHOSPHATASE 61 U/L (32-122); BUN 26 mg/dL (8-22); CALCIUM 9.1 mg/dL (8.8-10.2); CHLORIDE 98 mmol/L (98-107); COSMO 277; CREATININE 0.8 mg/dL (0.7-1.2); ESTIMATED GFR > 60; GLUCOSE 143 mg/dL (70-104); GOT 21 U/L (10-34); GPT 19 U/L (10-44); SODIUM 135 mmol/L (136-145); TCO2 26 mmol/L (25-35)
[2019-05-27 07:54] VITALS: BP 141/86
[2019-05-27] MEDS: SYMBICORT 160/4.5 MICROGM INHALER INH SCH (07:58)
[2019-05-27] MEDS: SPIRIVA INH SCH (07:59)
[2019-05-27] MEDS: GLUCOSAMINE 500 MG/CHONDROITIN 400 MG PO SCH (09:23)
[2019-05-27] MEDS: FISH OIL CONCENTRATE PO SCH (09:23)
[2019-05-27] MEDS: INDERAL PO SCH (09:23)
[2019-05-27] MEDS: FOLIC ACID PO SCH (09:23)
[2019-05-27] MEDS: ASPIRIN PO SCH (09:24)
[2019-05-27] MEDS: ZYLOPRIM PO SCH (09:24)
[2019-05-27] MEDS: HYDROCHLOROTHIAZIDE PO SCH (09:24)
[2019-05-27] MEDS: FERROUS SULFATE PO SCH (09:24)
--- NOTE | 2019-05-27 21:50 | DISCHARGE SUMMARY ---
ADMISSION DATE: 05/24/2019 DISCHARGE DATE: 05/27/2019 ADMISSION DIAGNOSIS: Fever. DISCHARGE DIAGNOSES: 1. Community acquired pneumonia. 2. Acute exacerbation of chronic obstructive pulmonary disease. 3. Hypoxia. 4. Profound weakness. 5. Hypertension, present on arrival. 6. Hyperlipidemia, present on arrival. 7. Hypertriglyceridemia, present on arrival. 8. Impaired fasting glucose, present on arrival. CONSULTATIONS: None. PROCEDURES: Chest x-ray was performed on 05/24/2019 which revealed scarring in the lower right lung and pleural thickening. HISTORY AND PHYSICAL EXAMINATION: See admit note. PHYSICAL EXAMINATION PRIOR TO DISCHARGE: Temperature 98.3 degrees, heart rate 75, respirations 20, blood pressure is 141/86. General: Chronically ill-appearing, no acute distress. Cardiovascular: Regular rate and rhythm. No significant murmurs, rubs, or gallops. Pulmonary: Distant breath sounds with prolonged expiratory phase. No significant wheezing. Abdomen: Soft, nontender, nondistended. Positive bowel sounds. Extremities: Moves all extremities well. No significant clubbing, cyanosis, or edema. Dermatologic: Evaluation reveals no evidence of rash. LABORATORY DATA: White blood cell count 12.15, hemoglobin 13.2, hematocrit 38.3, platelet count 145,000. Sodium 135, potassium 4.0, chloride 98, bicarb 26, BUN 26, creatinine 0.8, glucose 143, calcium 9.1, total bilirubin 1.00, total protein 6.0, albumin 3.7, alkaline phosphatase 61, AST 21, ALT 19. HOSPITAL COURSE: Patient was admitted as per history and physical examination. Hospital course per condition is as follows. 1. Community-acquired pneumonia-upon admission, patient was noted to have leukocytosis, fever, and an abnormal chest x-ray. Blood cultures were drawn which returned negative. Sputum culture is pending. As per his previous sputum cultures, patient was started on cefepime and levofloxacin therapy. While hospitalized, patient tolerated this quite well with improvement in his overall condition. At time of discharge, we will transition patient to levofloxacin and Bactrim therapy. We will follow up on sputum cultures. 2. Acute exacerbation of chronic obstructive pulmonary disease-upon admission, patient was noted to have increasing shortness of breath and wheezing. The patient was transitioned to Solu- Medrol from his baseline prednisone. With treatment of his community-acquired pneumonia and bronchodilators, patient did achieve improvement. At time of discharge, patient was wheeze- free. The patient will be discharged on a prednisone taper starting at 20 mg daily decreasing 5 mg every 5 days until 10 mg is reached. He will discontinue that dosage thereafter. He is to continue DuoNeb routinely. 3. Hypoxia-patient has longstanding disease. He was treated with oxygen per protocol while hospitalized. He will continue this as an outpatient. 4. Profound weakness-while hospitalized, patient achieved improvement with treatment of his underlying pneumonia. Patient is approaching baseline. We will follow this as an outpatient as well. 5. Hypertension-patient was maintained on home medications while hospitalized. He tolerated this well. Blood pressure remained reasonably controlled. 6. Hyperlipidemia/hypertriglyceridemia-patient has known disease. He currently is being treated nonmedically. This will be followed as an outpatient as well. 7. Impaired fasting glucose-the patient's blood sugars were followed while hospitalized. This will be followed as an outpatient as well. DISCHARGE CONDITION: Stable. DISPOSITION: Discharged to home. MEDICATIONS: 1. Bactrim DS 1 tablet twice daily for 5 additional days. 2. Levofloxacin 500 mg daily for 5 additional days. 3. Spiriva 1 inhalation daily. 4. Symbicort 160/4.5 two puffs twice daily. 5. Tylenol 650 mg every 4 hours as needed. 6. Allopurinol 200 mg twice daily. 7. Aspirin 81 mg daily. 8. Lorazepam 1 mg at bedtime. 9. Propranolol 40 mg twice daily. 10. Niacin 500 mg at bedtime. 11. Glucosamine and chondroitin twice daily. 12. Vitamin B complex vitamin at bedtime. 13. ProAir HFA 1 to 2 puffs every 4-6 hours as needed. 14. DuoNeb every 4 hours while awake. 15. Hydrochlorothiazide 12.5 mg daily. 16. Folic acid 1 mg daily. 17. Claritin 10 mg daily as needed. 18. Fish oil 1000 mg twice daily. 19. Iron sulfate 325 mg twice daily. 20. Pantoprazole 40 mg daily. 21. Prednisone 20 mg daily for 5 days then 15 mg daily for 5 days then 10 mg daily thereafter. FOLLOWUP: Patient is to follow up with me in approximately 1 to 2 weeks. cc: Scott Guerra MD
== END 2019-05-27 11:16 | disposition home or self-care (01) | DRG 190 ==
LOC: DIRADM 14:40 → 3N 14:57
PROVIDERS: ADMIT Internal Medicine; ATTEND Internal Medicine

== ENCOUNTER 2019-09-03 16:09 | Inpatient (IN) ==
[2019-09-03] MEDS ORDERED: TYLENOL PO PRN ×2 (17:40→20:14)
--- NOTE | 2019-09-03 18:00 | Diag Imaging Result Doc PS360 ---
EXAM: CHEST-2 VIEWS 09/03/2019 HISTORY: hypoxia TECHNIQUE: PA and lateral chest COMMENT: There are fibrotic changes in both lung bases as well as in the right right costophrenic sulcus. These findings were also present on 05/24/2019. There is somewhat less optimal expansion of both lungs since the previous study. IMPRESSION: Pulmonary fibrosis. Electronically signed by Carlyle Pa 09/03/2019 5:58 PM
[2019-09-03 18:15] LABS: BASO# 0.06 X1000 (0.0-0.2); BASO% 0.6 % (0.0-0.8); EOS# 0.02 X1000 (0.0-0.7); EOS% 0.2 % (0.0-10.0); HEMATOCRIT 40.3 % (42.0-52.0); HEMOGLOBIN 12.9 g/dL (14.0-18.0); IMM GRAN# 0.29 X1000 (0.0-0.04); IMM GRAN% 3.1 % (0.0-0.5); LYMPH# 1.01 X1000 (1.2-3.4); LYMPH% 10.8 % (20.5-51.1); MCH 31.6 PG (27-31); MCV 98.8 FL (81-99); MONO% 3.2 % (1.7-9.3); MPV 10.7 FL (7.4-10.4); NEUT# 7.63 X1000 (1.4-6.5); NEUT% 82.1 % (42.2-75.2); PLT 189 X1000 (130-400); RBC 4.08 XMIL (4.7-6.1); RDW 14.2 % (11.5-14.5); WBC 9.31 X1000 (4.8-10.8)
[2019-09-03] MEDS: ROCEPHIN 1 GM in NS 50 ML IV SCH (18:28)
[2019-09-03] MEDS: NS 1,000 ML IV SCH (18:29)
[2019-09-03 18:33] LABS: AGAP 12; ALB/GLOB RATIO 1.8; ALBUMIN 4.2 g/dL (3.5-5.0); ALKALINE PHOSPHATASE 71 U/L (32-122); BUN 20 mg/dL (8-22); CALCIUM 10.3 mg/dL (8.8-10.2); CHLORIDE 97 mmol/L (98-107); COSMO 280; CREATININE 0.9 mg/dL (0.7-1.2); ESTIMATED GFR > 60; GLUCOSE 131 mg/dL (70-104); GOT 19 U/L (10-34); GPT 19 U/L (10-44); POTASSIUM 4.8 mmol/L (3.5-5.1); SODIUM 138 mmol/L (136-145); TCO2 29 mmol/L (25-35); TOTAL BILIRUBIN 1.14 mg/dL (0.20-1.00); TOTAL PROTEIN 6.6 g/dL (6.3-8.3)
[2019-09-03] MEDS: LEVAQUIN 500 MG/D5W 500 MG/100 ML IVPB IV SCH (19:03)
[2019-09-03] MEDS: SOLU-MEDROL IV SCH (19:31)
[2019-09-03] MEDS: ATROVENT NEB INH SCH ×2 (19:55→23:50)
[2019-09-03] MEDS: ALBUTEROL NEB INH SCH ×2 (19:55→23:50)
[2019-09-03] MEDS ORDERED: CLARITIN PO PRN (20:14)
[2019-09-03] MEDS: VICON-C PO SCH (23:31)
[2019-09-03] MEDS: FISH OIL CONCENTRATE PO SCH (23:31)
[2019-09-03] MEDS: INDERAL PO SCH (23:31)
[2019-09-03] MEDS: ZYLOPRIM PO SCH (23:31)
[2019-09-03] MEDS: FERROUS SULFATE PO SCH (23:32)
[2019-09-03] MEDS: GLUCOSAMINE 500 MG/CHONDROITIN 400 MG PO SCH (23:32)
[2019-09-03] MEDS: ATIVAN PO SCH (23:32)
[2019-09-03] MEDS: NIASPAN PO SCH (23:32)
[2019-09-04] MEDS: HUMALOG SUBQ SCH ×5 (01:14→20:41)
[2019-09-04] MEDS: SOLU-MEDROL IV SCH ×3 (02:48→18:06)
[2019-09-04] MEDS: ALBUTEROL NEB INH SCH ×6 (03:43→23:19)
[2019-09-04] MEDS: ATROVENT NEB INH SCH ×6 (03:43→23:19)
[2019-09-04] MEDS: PROTONIX PO SCH (06:16)
--- NOTE | 2019-09-04 06:58 | HISTORY AND PHYSICAL ---
PRIMARY CARE PHYSICIAN: Dr. Scott Guerra CHIEF COMPLAINT: Cough, congestion, shortness of breath. HISTORY OF PRESENT ILLNESS: An 83-year-old white male with a complicated past medical history, presents for evaluation of above-mentioned symptoms. Pertinent history of present illness began approximately 5 days ago. At that time, patient developed cough and congestion. Cough has been largely nonproductive. With time, he has developed considerable shortness of breath and wheezing. He denies fevers and chills. He denies any sick contacts to his knowledge. He attempted treatment with his optimum pulmonary medications at home, although unsuccessfully. Oxygen demands have increased. He is currently using 5 L of oxygen per minute. Saturations at home have remained below 90%. Energy level remains very low as well. Because of his progressive symptoms, patient presented to my office for further evaluation and management. PAST MEDICAL HISTORY: 1. Iron and folic acid deficiency anemia. 2. Abdominal aortic aneurysm. 3. Right iliac artery aneurysm. 4. Aortic stenosis status post TAVR in March 2018. 5. Benign prostatic hypertrophy status post TURP in 2000. 6. Multiple nevi actinic keratoses, and seborrheic keratoses. 7. Carotid artery disease. 8. Cataracts. 9. Chronic cholecystitis status post laparoscopic cholecystectomy in 2000. 10. Advanced COPD, followed by Dr. Chin. 11. Colonic diverticulosis, but no history of diverticulitis. 12. Insomnia. 13. Hypertension. 14. Hypertriglyceridemia. 15. Nonalcoholic fatty liver disease. 16. History of left footdrop diagnosed after surgical intervention in 2011. He achieved full resolution within 8 weeks. 17. Gilbert's disease. 18. Gout. 19. History of Hemoccult-positive stools in June 2015. Risk of GI evaluation outweighed benefits. 20. Status post hemorrhoidectomy in 2002. 21. Hyperlipidemia. 22. Hypoxemia requiring home oxygen therapy. 23. Impaired fasting glucose. 24. Right inguinal hernia. 25. Low HDL. 26. Mild cognitive impairment. 27. Mitral regurgitation. 28. History of tobacco use. 29. Presumed obstructive sleep apnea. 30. Osteoarthritis. 31. Palpitations. 32. History of pulmonary nodules status post right upper lobectomy in 2011. 33. Thrombocytopenia. CURRENT MEDICATIONS: 1. Allopurinol 200 mg twice daily. 2. Aspirin 81 mg daily. 3. B complex vitamin at bedtime. 4. Claritin daily as needed. 5. Iron sulfate 325 mg twice daily. 6. Fish oil 1000 mg twice daily. 7. Folic acid 1 mg daily. 8. Glucosamine and chondroitin twice daily. 9. Hydrochlorothiazide 25 mg half tablet daily. 10. DuoNeb every 4 hours. 11. Lorazepam 1 mg at bedtime. 12. Mucinex DM twice daily as needed. 13. Niacin 500 mg at bedtime. 14. Pantoprazole 40 mg daily. 15. Prednisone 10 mg daily. 16. ProAir HFA every 4-6 hours as needed. 17. Propranolol 40 mg twice daily. 18. Spiriva 1 capsule inhaled daily. 19. Symbicort 2 puffs twice daily. ALLERGIES: Patient states he is allergic to Actos, doxycycline, Tricor, Zofran, and Zosyn. SOCIAL HISTORY: The patient smoked 1 to 2 packs per day for 53 years. He stopped in 2004. He denies alcohol or illicit drug use. He is retired from [employer]. His exercise is limited by his lung disease. FAMILY HISTORY: Patient's father passed at age 79 secondary to complications of a hepatoma. Patient's mother passed at age 98 secondary to complications of dementia. She had a history of stroke. REVIEW OF SYSTEMS: A 12 point review of systems was performed. Pertinent positives and negatives are noted in history present illness. PHYSICAL EXAMINATION: VITAL SIGNS: Temperature 98.3 degrees, heart rate 80, respirations 20, blood pressure is 111/62. GENERAL: Chronically ill-appearing, no acute distress. HEENT: Normocephalic, atraumatic. Pupils equal, round, react to light. Extraocular muscles intact. Sclerae anicteric. [place] conjunctivae. Oral and nasopharynx clear without exudate. NECK: Supple. No lymphadenopathy. No thyromegaly. No bruits auscultated. CARDIOVASCULAR: Regular rate and rhythm. No significant murmurs, rubs, or gallops. PULMONARY: Rhonchi and wheezing bilaterally. Compromised air movement. ABDOMEN: Soft, nontender, nondistended. Positive bowel sounds. EXTREMITIES: Moves all extremities well. No significant clubbing, cyanosis, or edema. NEUROLOGIC: Cranial nerves 2-12 grossly intact. Motor and sensory grossly intact. PSYCHOLOGIC: Examination is appropriate. LABORATORY DATA: White blood cell count 9.31, hemoglobin 12.9, hematocrit 40.3, platelet count 189,000. Sodium 138, potassium 4.8, chloride 97, bicarb 29, BUN 20, creatinine 0.9, glucose 131, calcium 10.3, total bilirubin 1.14, total protein 6.6, albumin 4.2, alkaline phosphatase 71, AST 19, ALT 19. IMAGING: Chest x-ray revealed pulmonary fibrosis. ASSESSMENT AND PLAN: An 83-year-old white male with a complicated past medical history as noted, presents for evaluation of progressive pulmonary disease. Patient has advanced chronic obstructive pulmonary disease. His oxygen requirements have increased. He has significant wheezing and rhonchi on examination. The patient will be admitted to the hospital for acute exacerbation of chronic obstructive pulmonary disease with hypoxia in the setting of a probable underlying pneumonia. 1. Admit to [address] [place] [address]. 2. Acute exacerbation of chronic obstructive pulmonary disease-we will continue patient on DuoNeb every 4 hours. We will start patient on IV antibiotics. We will transition patient from prednisone to Solu- Medrol. We will encourage incentive spirometry and aspiration precautions. 3. Probable pneumonia-chest x-ray reveals pulmonary fibrosis. Clinically, I am concerned the patient has an underlying pneumonia. We will check sputum cultures and blood cultures. We will start patient on Rocephin and levofloxacin therapy. We will treat chronic obstructive pulmonary disease as above. 4. Hypoxemia-we will continue patient on oxygen per protocol. We will encourage incentive spirometry. 5. Profound weakness-this is likely a consequence of his acute illness. We will treat as described above. 6. Anemia-we will continue patient on iron and folic acid replacement. 7. Hypertension-we will continue patient on home medications. 8. Impaired fasting glucose-in the setting of increasing steroids, we will follow patient with sliding scale insulin. We will follow this. 9. Fluid, electrolytes, nutrition. We will monitor electrolytes. Saline lock IV. Regular diet. 10. Prophylaxis. Patient will be placed on subcutaneous Lovenox. cc: Scott Guerra MD MTDD
[2019-09-04] MEDS: SPIRIVA INH SCH (08:37)
[2019-09-04] MEDS: FERROUS SULFATE PO SCH ×2 (08:45→20:41)
[2019-09-04] MEDS: INDERAL PO SCH ×2 (08:45→20:42)
[2019-09-04] MEDS: HYDROCHLOROTHIAZIDE PO SCH (08:45)
[2019-09-04] MEDS: FISH OIL CONCENTRATE PO SCH ×2 (08:45→20:41)
[2019-09-04] MEDS: LOVENOX SUBQ SCH (08:45)
[2019-09-04] MEDS: ZYLOPRIM PO SCH ×2 (08:46→20:41)
[2019-09-04] MEDS: FOLIC ACID PO SCH (08:46)
[2019-09-04] MEDS: ASPIRIN PO SCH (08:47)
[2019-09-04] MEDS: GLUCOSAMINE 500 MG/CHONDROITIN 400 MG PO SCH ×2 (08:47→20:41)
[2019-09-04] MEDS: SYMBICORT 160/4.5 MICROGM INHALER INH SCH ×2 (11:18→19:21)
[2019-09-04] MEDS: NS 1,000 ML IV SCH (13:23)
[2019-09-04] MEDS: ROCEPHIN 1 GM in NS 50 ML IV SCH (17:28)
[2019-09-04] MEDS: LEVAQUIN 500 MG/D5W 500 MG/100 ML IVPB IV SCH (18:06)
[2019-09-04] MEDS: VICON-C PO SCH (20:41)
[2019-09-04] MEDS: NIASPAN PO SCH (20:41)
[2019-09-04] MEDS: ATIVAN PO SCH (20:41)
[2019-09-05] MEDS: ALBUTEROL NEB INH SCH ×6 (03:28→23:11)
[2019-09-05] MEDS: ATROVENT NEB INH SCH ×6 (03:28→23:11)
[2019-09-05] MEDS: HUMALOG SUBQ SCH ×4 (06:22→22:12)
[2019-09-05] MEDS: PROTONIX PO SCH (06:23)
[2019-09-05] MEDS: SOLU-MEDROL IV SCH ×2 (06:23→18:56)
--- NOTE | 2019-09-05 06:23 | PROGRESS NOTE ---
DATE: 09/04/2019 SUBJECTIVE: Patient was originally seen this morning. At that time, patient noted to have slept reasonably well overnight. He has experienced improvement in his shortness of breath, cough, congestion, and wheezing. His p.o. intake is adequate. This evening patient states he has demonstrated further improvement. He is tolerating medical intervention well. OBJECTIVE: Vital Signs: T-max 99.0, heart rate 84 to 110, respirations 16 to 21, and blood pressure 95 to 111/54 to 79. General: Chronically ill appearing, no acute distress. Cardiovascular: Regular rate and rhythm. No significant murmurs, rubs, or gallops. Pulmonary: Distant breath sounds. Prolonged expiratory phase. Improved wheezing from yesterday. Abdomen: Soft, nontender, and nondistended. Positive bowel sounds. Extremities: Moves all extremities well. No significant clubbing, cyanosis, or edema. Dermatologic: Evaluation reveals no evidence of rash. LABORATORY DATA: None. ASSESSMENT AND PLAN: 1. Acute exacerbation of chronic obstructive pulmonary disease-The patient is currently being treated with DuoNeb, Rocephin, levofloxacin, and Solu-Medrol. As patient is achieving improvement, we will begin a taper of Solu-Medrol. I anticipate, should patient continue to improve, we may be able to discharge home on Monday. 2. Probable pneumonia-Chest x-ray suggested pulmonary fibrosis, however clinically patient likely had an underlying pneumonia. We will follow blood cultures and sputum cultures. We will continue Rocephin and levofloxacin therapy. 3. Hypoxemia-We will continue oxygen per protocol. 4. Profound weakness - The patient has achieved improvement. We will encourage activity. 5. Anemia-We will continue patient on iron and folic acid replacement. 6. Hypertension-Blood pressure is controlled on his current regimen. 7. Impaired fasting glucose-Glucose has increased since increasing his steroids. We will continue sliding scale insulin. 8. Disposition. At this point, patient continues to require intermediate care in a hospital setting. We will plan discharge home once appropriate. cc: Scott Guerra MD
[2019-09-05] MEDS: SYMBICORT 160/4.5 MICROGM INHALER INH SCH ×2 (08:14→19:35)
[2019-09-05] MEDS: SPIRIVA INH SCH (08:30)
[2019-09-05] MEDS: HYDROCHLOROTHIAZIDE PO SCH (08:39)
[2019-09-05] MEDS: FOLIC ACID PO SCH (08:39)
[2019-09-05] MEDS: ZYLOPRIM PO SCH ×2 (08:39→22:11)
[2019-09-05] MEDS: ASPIRIN PO SCH (08:39)
[2019-09-05] MEDS: FERROUS SULFATE PO SCH ×2 (08:39→22:10)
[2019-09-05] MEDS: FISH OIL CONCENTRATE PO SCH ×2 (08:39→22:10)
[2019-09-05] MEDS: INDERAL PO SCH ×2 (08:40→22:08)
[2019-09-05] MEDS: LOVENOX SUBQ SCH (08:40)
[2019-09-05] MEDS: GLUCOSAMINE 500 MG/CHONDROITIN 400 MG PO SCH ×2 (08:40→22:10)
[2019-09-05] MEDS: ROCEPHIN 1 GM in NS 50 ML IV SCH (18:10)
[2019-09-05] MEDS: LEVAQUIN 500 MG/D5W 500 MG/100 ML IVPB IV SCH (18:56)
[2019-09-05] MEDS: ATIVAN PO SCH (22:09)
[2019-09-05] MEDS: NIASPAN PO SCH (22:10)
[2019-09-05] MEDS: VICON-C PO SCH (22:10)
[2019-09-06] MEDS: ATROVENT NEB INH SCH ×4 (03:35→16:17)
[2019-09-06] MEDS: ALBUTEROL NEB INH SCH ×4 (03:35→16:17)
[2019-09-06] MEDS: PROTONIX PO SCH (06:34)
[2019-09-06] MEDS: SOLU-MEDROL IV SCH (06:35)
[2019-09-06] MEDS: HUMALOG SUBQ SCH ×3 (06:41→17:00)
[2019-09-06 06:46] LABS: AGAP 13; ALB/GLOB RATIO 1.6; ALBUMIN 3.6 g/dL (3.5-5.0); ALKALINE PHOSPHATASE 66 U/L (32-122); BASO# 0.02 X1000 (0.0-0.2); BASO% 0.2 % (0.0-0.8); BUN 22 mg/dL (8-22); CALCIUM 9.3 mg/dL (8.8-10.2); CHLORIDE 99 mmol/L (98-107); COSMO 281; CREATININE 0.8 mg/dL (0.7-1.2); ESTIMATED GFR > 60; GLUCOSE 130 mg/dL (70-104); GOT 31 U/L (10-34); GPT 32 U/L (10-44); HEMATOCRIT 35.3 % (42.0-52.0); HEMOGLOBIN 11.5 g/dL (14.0-18.0); IMM GRAN# 0.26 X1000 (0.0-0.04); IMM GRAN% 2.4 % (0.0-0.5); LYMPH# 0.57 X1000 (1.2-3.4); LYMPH% 5.4 % (20.5-51.1); MCH 31.3 PG (27-31); MCHC 32.6 g/dL (33-37); MCV 96.2 FL (81-99); MONO# 0.38 X1000 (0.11-0.59); MONO% 3.6 % (1.7-9.3); NEUT# 9.42 X1000 (1.4-6.5); NEUT% 88.4 % (42.2-75.2); PLT 197 X1000 (130-400); POTASSIUM 3.8 mmol/L (3.5-5.1); RBC 3.67 XMIL (4.7-6.1); RDW 13.7 % (11.5-14.5); SODIUM 138 mmol/L (136-145); TCO2 26 mmol/L (25-35); TOTAL BILIRUBIN 0.54 mg/dL (0.20-1.00); TOTAL PROTEIN 5.8 g/dL (6.3-8.3); WBC 10.65 X1000 (4.8-10.8)
--- NOTE | 2019-09-06 07:03 | PROGRESS NOTE ---
DATE: 09/05/2019 SUBJECTIVE: Upon my arrival this morning, patient was sitting upright in bed. He states he had a reasonable evening. Throughout the day, patient's overall condition continued to improve. His appetite is good. His shortness of breath is decreasing. He continues to have cough and congestion, however this also is improving. He denies fevers, chills, nausea, vomiting, or chest discomfort. OBJECTIVE: Vital signs: T-max 99.0 degrees, heart rate 85 to 101, respirations 16 to 25 blood pressure 100 to 143/59 to 82. General: Well nourished, well developed, no acute distress. Cardiovascular: Regular rate and rhythm. No significant murmurs, rubs, or gallops. Pulmonary: Distant breath sounds. Prolonged expiratory phase. Adequate air movement. Abdomen: Soft, nontender, nondistended. Positive bowel sounds. Extremities: Moves all extremities well. No significant clubbing, cyanosis, or edema. Dermatologic: Evaluation reveals no evidence of rash. LABORATORY DATA: None. ASSESSMENT AND PLAN: 1. Acute exacerbation of chronic obstructive pulmonary disease - I am very encouraged with patient's improvement. For now, we will continue DuoNeb, Rocephin, levofloxacin and Solu- Medrol. Should patient's condition continue to improve, we will consider discharge home tomorrow. 2. Probable pneumonia - this likely was the etiology of his acute exacerbation of chronic obstructive pulmonary disease. We will continue antibiotics as noted. Blood cultures thus far are negative. We will encourage incentive spirometry and aspiration precautions. 3. Hypoxemia - we will continue patient on oxygen per protocol. 4. Profound weakness - we will continue to encourage activity. 5. Anemia - we will continue patient on iron and folic acid replacement. 6. Hypertension - The patient's blood pressure is reasonably controlled on his current regimen. 7. Impaired fasting glucose - patient's glucose has increased since being on steroids. We will continue patient on sliding scale insulin. 8. Disposition - at this point, patient continues to require [facility] care in a hospital setting. We will plan discharge home once appropriate. cc: Scott Guerra MD
[2019-09-06 07:34] LABS: LYMPHS 6 % (21-51); SEGS 94 % (42-75)
[2019-09-06] MEDS: SPIRIVA INH SCH (08:24)
[2019-09-06] MEDS: SYMBICORT 160/4.5 MICROGM INHALER INH SCH (08:24)
[2019-09-06] MEDS ORDERED: PREDNISONE PO ONE (09:00)
[2019-09-06] MEDS: HYDROCHLOROTHIAZIDE PO SCH (09:34)
[2019-09-06] MEDS: INDERAL PO SCH (09:34)
[2019-09-06] MEDS: GLUCOSAMINE 500 MG/CHONDROITIN 400 MG PO SCH (09:34)
[2019-09-06] MEDS: FOLIC ACID PO SCH (09:35)
[2019-09-06] MEDS: FISH OIL CONCENTRATE PO SCH (09:35)
[2019-09-06] MEDS: ASPIRIN PO SCH (09:35)
[2019-09-06] MEDS: ZYLOPRIM PO SCH (09:35)
[2019-09-06] MEDS: FERROUS SULFATE PO SCH (09:35)
[2019-09-06] MEDS: LOVENOX SUBQ SCH (09:37)
[2019-09-06 16:38] VITALS: BP 147/75
[2019-09-06] MEDS ORDERED: LEVAQUIN PO ONE (18:00)
[2019-09-06] MEDS ORDERED: OMNICEF PO ONE ×2 (18:03→18:09)
--- NOTE | 2019-09-07 20:14 | DISCHARGE SUMMARY ---
ADMISSION DATE: 09/03/2019 DISCHARGE DATE: 09/06/2019 ADMISSION DIAGNOSIS: 1. Cough. 2. Congestion. 3. Shortness of breath. DISCHARGE DIAGNOSES: 1. Acute exacerbation of chronic obstructive pulmonary disease. 2. Probable pneumonia. 3. Hypoxemia. 4. Profound weakness. 5. Anemia, present on arrival. 6. Hypertension, present on arrival. 7. Impaired fasting glucose, present on arrival. CONSULTATIONS: None. PROCEDURES: Chest x-ray performed on 09/03/2019 which revealed pulmonary fibrosis. HISTORY AND PHYSICAL EXAMINATION: See admit note. PHYSICAL EXAMINATION PRIOR TO DISCHARGE: Temperature 97.8 degrees, heart rate 92, respirations 14, blood pressure is 147/75. General: Chronically ill appearing, no acute distress. Cardiovascular: Regular rate and rhythm. No significant murmurs, rubs, or gallops. Pulmonary: Expiratory phase. No significant wheezing. Adequate air movement. Abdomen: Soft, nontender, nondistended. Positive bowel sounds. Extremities: Moves all extremities well. No significant clubbing, cyanosis, or edema. Dermatologic: Evaluation reveals no evidence of rash. LABORATORY DATA: Prior to discharge white blood cell count 10.65, hemoglobin 11.5, hematocrit 35.3, platelet count 197,000. Sodium 138, potassium 3.8, chloride 99, bicarb 26, BUN 22, creatinine 0.6, glucose 130, calcium 9.3, total bilirubin 0.54, total protein 5.8, albumin 3.6, alkaline phosphatase 66, AST 31, ALT 32. HOSPITAL COURSE: Patient was admitted as per history and physical examination. Hospital course per condition is as follows. 1. Acute exacerbation of chronic obstructive pulmonary disease-upon admission, patient was noted to have significant shortness of breath above his baseline. Patient was started on DuoNeb, Rocephin, levofloxacin and Solu-Medrol. With initiation of these medical interventions, patient quickly achieved improvement in his overall condition. On the day of discharge, patient was transitioned from Solu-Medrol to oral prednisone. He tolerated this quite well. The patient's sputum culture is pending but 2+ white cells and 1+ gram-positive cocci were noted. For this reason, patient will be discharged on broad-spectrum antibiotics including levofloxacin and cefdinir therapy. He will continue DuoNeb and titrate back to his baseline prednisone 10 mg daily by Monday. We will monitor his clinical course very closely. 2. Probable pneumonia-as above, patient's symptoms were most consistent upon admission. Sputum is pending, but does appear to have both bacteria and white cells present. The patient was treated with Rocephin and levofloxacin therapy while hospitalized. He will be discharged home with 7 additional days of cefdinir and levofloxacin orally. We will encourage incentive spirometry and aspiration precautions. We will treat COPD as described above. 3. Hypoxemia-the patient was treated with oxygen protocol while hospitalized. He will be discharged home on oxygen 5 L, his home dosage. We will treat pneumonia and COPD as described above. 4. Profound weakness-while hospitalized, with aggressive medical intervention, patient did achieve improvement but not resolution of his symptoms. We will continue to follow this. 5. Anemia-the patient is being treated with iron and folic acid replacement as an outpatient. This was continued while hospitalized. 6. Hypertension-patient was continued on his home medical regimen while hospitalized. Blood pressure remains reasonably controlled. 7. Impaired fasting glucose-the patient has longstanding disease. Blood sugars were slightly more elevated while hospitalized with steroid intervention. With decreasing steroids back to his baseline, I expect his blood sugars to normalize. DISCHARGE CONDITION: Good. DISPOSITION: Discharge to home. MEDICATIONS: 1. Acetaminophen 650 mg every 6 hours as needed. 2. Allopurinol 200 mg twice daily. 3. Aspirin 81 mg daily. 4. Symbicort 160/4.5 two puffs twice daily. 5. Iron sulfate 325 mg twice daily. 6. Folic acid 1 mg daily. 7. Glucosamine and chondroitin 1 tablet twice daily. 8. Hydrochlorothiazide 12.5 mg daily. 9. Loratadine 10 mg daily as needed. 10. Lorazepam 1 mg at bedtime. 11. Niacin ER 500 mg at bedtime. 12. Fish oil 1000 mg twice daily. 13. Pantoprazole 40 mg daily in the morning. 14. Propranolol 40 mg twice daily. 15. Spiriva 1 capsule inhaled daily. 16. Vitamin B complex at bedtime. 17. Acetaminophen 650 mg every 4 hours as needed. 18. DuoNeb every 4 hours while awake. 19. ProAir HFA 1 to 2 puffs every 4 hours as needed. 20. Cefdinir 300 mg twice daily for 7 days. 21. Levofloxacin 500 mg daily for 7 days. 22. Prednisone 20 mg tomorrow followed by 10 mg daily. FOLLOWUP: The patient is to follow with me in approximately 1 to 2 weeks. cc: Scott Guerra MD
== END 2019-09-06 19:07 | disposition home or self-care (01) | DRG 190 ==
LOC: DIRADM 16:09 → EDIPHOLD 16:32 → 1N 21:59
PROVIDERS: ADMIT Internal Medicine; ATTEND Internal Medicine

== ENCOUNTER 2019-12-14 13:40 | Inpatient (IN) ==
[2019-12-14] MEDS ORDERED: DUONEB (A & A) INH ONE (13:59)
[2019-12-14] MEDS ORDERED: SOLU-MEDROL IV ONE (13:59)
[2019-12-14] MEDS ORDERED: MAXIPIME 1 GM in NS 50 ML IV ONE (14:00)
[2019-12-14 14:21] LABS: ALLEN TEST YES; BE -0.8 mmoll (-3.0-3.0); BLOOD TYPE ARTERIAL; HCO3-(ACT) 24.1 mmoll (20.0-26.0); O2(CT) 21.2 mL/dL (15.0-23.0); PCO2(98.6) 32 mmHg (35-45); PO2(98.6) 70 mmHg (60-100); SAMPLE BLOOD; SAO2 96.4 % (95.0-100.0); THB 16.2 g/dL (11.5-17.4); pH(98.6) 7.45 (7.35-7.45)
[2019-12-14 14:22] LABS: MODALITY VENTIMASK
--- NOTE | 2019-12-14 14:29 | Diag Imaging Result Doc PS360 ---
EXAM: CHEST-1 VIEW INDICATION: SOB TECHNIQUE: One view COMPARISON: 09/03/2019 FINDINGS: There are bibasilar airspace consolidations consistent with pneumonia. This is superimposed over milder fibrotic changes seen at both lung bases on the previous study. There is stable blunting of the right costophrenic angle suggesting scarring. Cardiac silhouette is unremarkable. IMPRESSION: Bibasilar consolidation suggesting pneumonia. Electronically signed by Janes Clemons 12/14/2019 2:26 PM
[2019-12-14] MEDS ORDERED: MAXIPIME ONE (14:32)
[2019-12-14 14:53] LABS: BASO# 0.09 X1000 (0.0-0.2); BASO% 0.3 % (0.0-0.8); EOS# 0.01 X1000 (0.0-0.7); HEMATOCRIT 45.7 % (42.0-52.0); HEMOGLOBIN 15.1 g/dL (14.0-18.0); IMM GRAN# 0.34 X1000 (0.0-0.04); IMM GRAN% 1.1 % (0.0-0.5); LYMPH# 1.64 X1000 (1.2-3.4); LYMPH% 5.1 % (20.5-51.1); MCH 30.8 PG (27-31); MCV 93.1 FL (81-99); MONO# 1.43 X1000 (0.11-0.59); MONO% 4.4 % (1.7-9.3); MPV 11.9 FL (7.4-10.4); NEUT# 28.87 X1000 (1.4-6.5); NEUT% 89.1 % (42.2-75.2); PLT 175 X1000 (130-400); RBC 4.91 XMIL (4.7-6.1); RDW 16.8 % (11.5-14.5); WBC 32.38 X1000 (4.8-10.8)
[2019-12-14 14:59] LABS: INR 1.11; PROTIME 14.5 Seconds (11.0-16.0); PTT 31.4 Seconds (22.3-41.8)
[2019-12-14 15:12] LABS: BANDS 5 % (0-1); LYMPHS 7 % (21-51); MONO 1 % (1-9); SEGS 87 % (42-75)
[2019-12-14 15:20] LABS: ALBUMIN 4.1 g/dL (3.5-5.0); CALCIUM 9.6 mg/dL (8.8-10.2); CREATININE 1.4 mg/dL (0.7-1.2); POTASSIUM 4.2 mmol/L (3.5-5.1); TOTAL BILIRUBIN 2.17 mg/dL (0.20-1.00); TOTAL PROTEIN 6.2 g/dL (6.3-8.3)
[2019-12-14] MEDS ORDERED: VANCOMYCIN 1 GM/NS 1 GM/250 ML IVPB IV ONE (16:25)
--- NOTE | 2019-12-14 16:29 | PROVIDER DOCUMENTATION ---
This chart was entered by Leilani Tolliver Scribe, acting as scribe for Simone Richards MD. HPI-Respiratory General - General Chief Complaint: Shortness of Breath Stated Complaint: low oxygen Time Seen by Provider: 12/14/19 13:52 Source: patient, family Allergies/Adverse Reactions: Patient Allergies Allergy/AdvReac Type Severity Reaction Status Date / Time doxycycline Allergy FATIGUE Verified 01/12/18 03:34 fenofibrate nanocrystallized Allergy Unknown Verified 12/03/17 17:17 * [From Tricor] fenofibrate,micronized * Allergy Unknown Verified 12/03/17 17:17 [From Tricor] pioglitazone HCl * Allergy Unknown Verified 12/03/17 17:17 [From Actos] piperacillin sodium * Allergy Unknown Verified 12/03/17 17:17 [From Zosyn] tazobactam sodium * Allergy Unknown Verified 12/03/17 17:17 [From Zosyn] Home Medications: Home Medication List Medication Instructions Recorded Confirmed Last Taken Type Iolztgfl-Umiowla-Cabm 149-Hyal 1,500 tab PO BID 01/22/13 12/14/19 09/03/19 07:00 History [Glucosamine Chondroitin Tablet] Propranolol [Inderal] 40 mg PO BID 01/22/13 12/14/19 09/03/19 07:00 History Vitamin B Complex [B Complex] 1 each PO HS 02/22/16 12/14/19 09/02/19 20:00 History Albuterol Sulfate [Proair Hfa] 8.5 gm IH Q4H PRN PRN #1 hfa.aer.[email or web address] 07/15/16 12/14/19 09/03/19 07:00 Rx Albuterol 2.5MG/Ipratrop 0.5MG 3 ml INH RTQ4H #180 neb 02/04/17 12/14/19 09/03/19 08:00 Rx [Duoneb (A & A)] Hydrochlorothiazide 12.5 mg PO DAILY #45 tablet 02/04/17 12/14/19 09/01/19 07:00 Rx Folic Acid 1 mg PO DAILY #90 tablet 02/28/17 12/14/19 09/03/19 07:00 Rx Loratadine [Claritin] 10 mg PO DAILY PRN PRN #0 02/28/17 12/14/1911/20/18 08:00 Rx Rueter-3 Fatty Acids [Fish Oil 1,000 mg PO BID capsule 11/24/17 12/14/19 09/03/19 07:00 Rx Concentrate] Ferrous Sulfate 325 mg PO BID 01/12/18 12/14/19 09/03/19 07:00 History Pantoprazole [Protonix] 40 mg PO DAILY@0700 05/24/19 12/14/19 09/03/19 07:00 History Allopurinol [Zyloprim] 200 mg PO BID tab 05/27/19 12/14/19 09/03/19 07:00 Rx Prednisone 10 mg PO DAILY #8 tab 05/27/19 12/14/19 09/03/19 07:00 Rx Amitriptyline [Elavil] 25 mg PO DAILY 12/14/19 12/14/19 Unknown History Budesonide/Formoterol Fumarate 1 dose ORDERED BID 12/14/19 12/14/19 Unknown History [Symbicort 160-4.5 Mcg Inhaler] Clopidogrel [Plavix] 75 mg PO DAILY 12/14/19 12/14/19 Unknown History Lorazepam 1 mg PO DAILY 12/14/19 12/14/19 Unknown History Tiotropium [place] Inhaler 1 puff INH RTDAILY 12/14/19 12/14/19 Unknown History [Spiriva] - History of Present Illness-Resp Nature of Presenting Problem: 84 yowm presents to the ed via pov with family at bedside. pt c/o onset last night of sob and generalized weakness and mild confusion. pt is a COPD pt and currently stays at 5LPM on home O2. pt was placed on a Venti masked in ed @ 15LPM and O2 sat came to 92% from 79% in triage Quality of Pain: reports: none Severity in ED: reports: moderate Onset/Duration: reports: last night Timing: reports: still present, constant Context: reports: recent URI Exposure: reports: unknown cause Cough Quality/Degree: reports: mild, dry cough Episode Frequency: frequent episodes Current Respiratory Medication Therapy: Initiated see nurses note Modifying Factors: improves with: oxygen, sitting upright. worse with: exertion, coughing Associated Symptoms: reports: cough, hyperventilating, shortness of breath. denies: chest pain/soreness, fever/chills Similar Symptoms Previously?: Yes (copd) Recently seen or treated by another doctor?: No Review of Systems - Adult - REVIEW OF SYSTEMS - ADULT ROS:: ROS per family (son at bedside) Constitutional: denies: chills, fever Eyes: reports: no symptoms reported Ears, Nose, Mouth & Throat: reports: no symptoms reported Cardiovascular: denies: chest pain, edema, palpitations Respiratory: reports: see HPI, cough, shortness of breath Gastrointestinal: denies: abdominal pain, diarrhea, nausea, vomiting Genitourinary: reports: no symptoms reported Musculoskeletal: denies: back pain, neck pain Integumentary: reports: no symptoms reported Neurological: denies: dizziness/vertigo, headache/migraines Psychiatric: reports: no symptoms reported Endocrine: reports: no symptoms reported Hematologic/Lymphatic: reports: no symptoms reported Allergic/Immunologic: reports: no symptoms reported All Other Systems: Reviewed and Negative Past History - Adult - PAST MEDICAL HISTORY-ADULT Review of Records: reports: Old Records Reviewed, Nursing Assessment Review, Medications Reviewed, Social history reviewed & non-contributory. Major Childhood Illnesses: reports: denies history Cardiovascular: reports: HTN Respiratory: reports: COPD, pneumonia Gastrointestinal: reports: denies history Genitourinary: reports: kidney stones Musculoskeletal: reports: denies history Neurological: reports: denies history Endocrine/Immune: reports: denies history Other Conditions: reports: denies history - PRIOR SURGERIES/PROCEDURES Surgical/Procedure History: reports: none - IMMUNIZATION STATUS Childhood Immunizations: See Nurse Assessment Flu Vaccine: See Nurse Assessment - FAMILY HISTORY Family History: reviewed, not pertinent - SOCIAL HISTORY Smoking: quit greater than 1 year Substance Use: denies Living Situation: family Physical Exam-General - PHYSICAL EXAM-ADULT Initial Vital Signs Reviewed: Yes - CONSTITUTIONAL General Appearance: alert, mild distress, obese - EYES Eyes: PERRL/EOMI, pink conjunctivae - HEAD, EARS, NOSE, MOUTH & THROAT HENMT: moist mucous membranes - NECK Neck: non-tender, full range of motion, supple, normal inspection - RESPIRATORY Respiratory: respiratory distress, rhonchi (bilateral), increased rate (34), other (pt on a venti mask @ 15 LPM O2 sat 92%) - CARDIOVASCULAR Cardiovascular: normal peripheral pulses, regular rate, rhythm - CHEST (BREASTS) Chest/Breast: deferred - GASTROINTESTINAL (ABDOMEN) Abdominal Exam: normal bowel sounds, non tender, soft - GENITOURINARY Male Genitalia: deferred Rectal Exam: deferred Hemoccult Exam: deferred - LYMPHATIC Lymphatic: no adenopathy - MUSCULOSKELETAL Back Exam: no CVA tenderness, no vertebral tenderness Extremity: normal range of motion, non-tender, normal gait, normal inspection. negative: swelling - SKIN Integumentary: normal color, normal turgor, warm/dry - NEUROLOGIC Neurologic: grossly normal - PSYCHIATRIC Psych/Mental Status: normal mood/affect, normal thought content, normal thought process, other (mild confusion of time) Progress - PLAN OF CARE/RESULTS Progress/Plan/Lab Results: Vital Signs - 8 hr 12/14/19 13:47 12/14/19 14:11 Temperature 97.5 F L Pulse Rate 96 H 90 Respiratory Rate 34 H 28 H Blood Pressure 106/74 O2 Sat by Pulse Oximetry 92 L 93 L 12/14/19 15:14 Group A Strep Rapid Antigen - Final Throat 12/14/19 14:39 Influenza Screen - Final Nasopharyngeal Laboratory Results - last 24 hr 12/14/19 12/14/19 12/14/19 14:10 14:27 14:27 WBC RBC Hgb Hct MCV MCH MCHC RDW Std Deviation Plt Count MPV Immature Gran % (Auto) Neut % (Auto) Lymph % (Auto) [place] % (Auto) Eos % (Auto) Baso % (Auto) Immature Gran # (Auto) Neut # (Auto) Lymph # (Auto) [place] # (Auto) Eos # (Auto) Baso # (Auto) Segmented Neutrophils Band Neutrophils Lymphocytes Monocytes Pathologist Review PT INR PTT (Actin FS) Specimen Type ARTERIAL Sample Site R RADIAL pH 7.45 pCO2 32 L pO2 70 HCO3 24.1 Base Excess -0.8 Oxyhemoglobin 93.0 L ABG O2 Sat (Calculated) 21.2 ABG O2 Saturation 96.4 ABG Carboxyhemoglobin 2.50 ABG Methemoglobin 1.0 Karl Test YES A-a O2 Difference 247.0 Total Hemoglobin 16.2 Lactate 3.70 H Liter Flow 15.0 Blood Gas Modality VENTIMASK FiO2 % 50.0 Sodium 142 Potassium 4.2 Chloride 103 Carbon Dioxide 23 L Anion Gap 16 BUN 26 H Creatinine 1.4 H Estimated GFR/1.73 m2 48 BUN/Creatinine Ratio 19 Glucose 127 H Calculated Osmolality 289 Calcium 9.6 Total Bilirubin 2.17 H AST 21 ALT 17 Alkaline Phosphatase 64 Creatine Kinase 32 Troponin T High Sens Ish-W-Hsyqeqjwpwp Pept Total Protein 6.2 L Albumin 4.1 Globulin 2.1 Albumin/Globulin Ratio 2.0 Plasma Lactate 3.0 H 12/14/19 12/14/19 12/14/19 14:27 14:27 14:27 WBC 32.38 H RBC 4.91 Hgb 15.1 Hct 45.7 MCV 93.1 MCH 30.8 MCHC 33.0 RDW Std Deviation 16.8 H Plt Count 175 MPV 11.9 H Immature Gran % (Auto) 1.1 H Neut % (Auto) 89.1 H Lymph % (Auto) 5.1 L [place] % (Auto) 4.4 Eos % (Auto) 0.0 Baso % (Auto) 0.3 Immature Gran # (Auto) 0.34 H Neut # (Auto) 28.87 H Lymph # (Auto) 1.64 [place] # (Auto) 1.43 H Eos # (Auto) 0.01 Baso # (Auto) 0.09 Segmented Neutrophils 87 H Band Neutrophils 5 H Lymphocytes 7 L Monocytes 1 Pathologist Review PT 14.5 INR 1.11 PTT (Actin FS) 31.4 Specimen Type Sample Site pH pCO2 pO2 HCO3 Base Excess Oxyhemoglobin ABG O2 Sat (Calculated) ABG O2 Saturation ABG Carboxyhemoglobin ABG Methemoglobin Karl Test A-a O2 Difference Total Hemoglobin Lactate Liter Flow Blood Gas Modality FiO2 % Sodium Potassium Chloride Carbon Dioxide Anion Gap BUN Creatinine Estimated GFR/1.73 m2 BUN/Creatinine Ratio Glucose Calculated Osmolality Calcium Total Bilirubin AST ALT Alkaline Phosphatase Creatine Kinase Troponin T High Sens 60 H Edd-D-Nwefxticgjb Pept Total Protein Albumin Globulin Albumin/Globulin Ratio Plasma Lactate 12/14/19 14:27 WBC RBC Hgb Hct MCV MCH MCHC RDW Std Deviation Plt Count MPV Immature Gran % (Auto) Neut % (Auto) Lymph % (Auto) [place] % (Auto) Eos % (Auto) Baso % (Auto) Immature Gran # (Auto) Neut # (Auto) Lymph # (Auto) [place] # (Auto) Eos # (Auto) Baso # (Auto) Segmented Neutrophils Band Neutrophils Lymphocytes Monocytes Pathologist Review PT INR PTT (Actin FS) Specimen Type Sample Site pH pCO2 pO2 HCO3 Base Excess Oxyhemoglobin ABG O2 Sat (Calculated) ABG O2 Saturation ABG Carboxyhemoglobin ABG Methemoglobin Karl Test A-a O2 Difference Total Hemoglobin Lactate Liter Flow Blood Gas Modality FiO2 % Sodium Potassium Chloride Carbon Dioxide Anion Gap BUN Creatinine Estimated GFR/1.73 m2 BUN/Creatinine Ratio Glucose Calculated Osmolality Calcium Total Bilirubin AST ALT Alkaline Phosphatase Creatine Kinase Troponin T High Sens Xyr-B-Blrphqahxka Pept 2 H Total Protein Albumin Globulin Albumin/Globulin Ratio Plasma Lactate Orders Category Date Time Status Cardiac Monitoring NOW Care 12/14/19 13:56 Active IV Insertion NOW Care 12/14/19 13:56 Active NEWS Score >or=5:Order NEWS Bundle S.O. NOW Care 12/14/19 13:54 Active Notify Provider of NEWS Score NOW Care 12/14/19 13:56 Active Nursing- Obtain EKG once Care 12/14/19 14:00 Active CHEST-1 VIEW [RAD] Stat Exams 12/14/19 13:56 Completed ABG [RESP] Routine Lab 12/14/19 14:10 Completed BLOOD CULTURE [BLDCUL] Stat Lab 12/14/19 14:27 Results CBC WITH DIFF [HEME] Stat Lab 12/14/19 14:27 Completed CK PROFILE [SP CHEM] Stat Lab 12/14/19 14:27 Completed COMPREHENSIVE METABOLIC PANEL [CHEM] Stat Lab 12/14/19 14:27 Completed DIRECT STREP Stat Lab 12/14/19 15:14 Completed INFLUENZA SCREEN A/B Stat Lab 12/14/19 14:39 Completed LACTATE, PLASMA [CHEM] Lab 12/14/19 17:00 Uncollected LACTATE, PLASMA [CHEM] Lab 12/14/19 20:00 Uncollected LACTATE, PLASMA [CHEM] Q3H Lab 12/14/19 14:27 Completed PRO B-NATRIURETIC PEPTIDE Stat Lab 12/14/19 14:27 Completed PROTIME WITH INR [COAG] Stat Lab 12/14/19 14:27 Completed PTT [COAG] Stat Lab 12/14/19 14:27 Completed SPUTUM CULTURE WITH GRAM STAIN [RM] Stat Lab 12/14/19 13:59 Uncollected TROPONIN T HIGH SENSITIVITY Stat Lab 12/14/19 14:27 Completed URINALYSIS W/POSS RFLX CULT [URINALYSIS] Stat Lab 12/14/19 13:56 Uncollected Albuterol 2.5MG/Ipratrop 0.5MG [Duoneb (A & A)] Med 12/14/19 13:59 Discontinued 9 ml INH NOW ONE CefEPIME [Maxipime] Med 12/14/19 14:32 Discontinued 1 gm .ROUTE .STK-MED ONE CefEPIME [Maxipime] 1 gm Med 12/14/19 14:00 Discontinued 0.9% Sodium Chloride Inj [Ns] 50 ml IV NOW Methylprednisolone Sod Succ [Solu-Medrol] Med 12/14/19 13:59 Discontinued 125 mg IV NOW ONE Vancomycin 1 gm IV Now Med 12/14/19 16:25 Ordered Vancomycin 1 gm/Ns 1 gm in 250 ml IV NOW Aerosol Treatments Routine Oth 12/14/19 13:59 Completed Aerosol Treatments Stat Oth 12/14/19 13:59 Completed O2 Per Protocol Stat Oth 12/14/19 13:56 Active EKG [EKG] Stat Ther 12/14/19 14:[address] guerra defer to dr richards Result Diagrams: 12/14/19 14:27 12/14/19 14:27 - REASSESSMENT Reassessment #1 Time Reassessed: 16:25 Status: improving (with neb treatments, fluids, meets septic criteria, but not septic shock. Given Maxepime and vanc for pneumonia) - EKG 1 Time of EKG reading by physician:: 15:05 EKG Read and Signed by:: Simone Richards EKG Interpretation (*Must complete 3 of following elements*): Abnormal Rate: 87 Rhythm: sinus rhythm w/premature atrial complexes w/ aberrant conduction Juliaetta: left (deviation) QRS: LBB (incomplete LBBB) AL Interval: normal ST Wave: normal - XRAY 1 XRAY: Bilateral XRAY Study: Chest Impression: See EMR Report (IMPRESSION: Bibasilar consolidation suggesting pneumonia. Electronically signed by Janes Clemons 12/14/2019 2:26 PM) - CONSULTS/PCP/HOSPITALIST Notification #1 *Consult/PCP/Hospitalist*: Charlie paged at [phone] Time Discussed: 16:28 (Rupesh) Consult Disposition: Will see in ED, Admit Departure - Departure Date of Disposition Decision: 12/14/19 Time of Disposition Decision: 16:26 DIAGNOSIS: Pneumonia of both lower lobes Qualifiers: Pneumonia type: due to unspecified organism Qualified Code(s): J18.1 - Lobar pneumonia, unspecified organism Sepsis with acute hypoxic respiratory failure without septic shock Qualifiers: Sepsis type: sepsis due to unspecified organism Qualified Code(s): A41.9 - Sepsis, unspecified organism; R65.20 - Severe sepsis without septic shock; J96.01 - Acute respiratory failure with hypoxia Congestive heart failure (CHF) Qualifiers: Heart failure type: combined systolic and diastolic Heart failure chronicity: acute on chronic Qualified Code(s): I50.43 - Acute on chronic combined systolic (congestive) and diastolic (congestive) heart failure Disposition: ADMITTED INPATIENT 09 Certified Medical Emergency: Emergent Condition: Fair Referrals and Follow-Ups: Scott Guerra MD [Primary Care Provider] - - Critical Care Note This patient required my direct & personal management of CC.: Yes Total Time (mins): 40 Critical Care Statement: This patient required my direct personal management to treat or rule out processes, the absence of which, could potentiallly result in sudden, clinically significant life or limb threatening deterioration. Attestation - Physician/ JOHANNA Attestation Patient care was provided by Advanced Practice Provider:: No The physician spent face to face time with patient:: Yes Advanced Practice Provider documentation review:: Supervising physician onsite and consulted in the evaluation and care of this patient. The physician did have a face to face encounter with the patient. This chart was documented by the indicated scribe, (Leilani Tolliver Scribe) and accurately reflects the services I performed and decisions made by me, Simone Richards MD, as attested by the provider's signature.
[2019-12-14] MEDS ORDERED: NS 500 ML IV ONE ×2 (16:59→20:31)
--- NOTE | 2019-12-14 18:08 | EKG Report ---
Test Performed on : 12/14/2019 3:05:05 PM Test Reason : sob Blood Pressure : / mmHG Vent. Rate : 087 BPM Atrial Rate : 087 BPM P-R Int : 182 ms QRS Dur : 106 ms QT Int : 390 ms P-R-T Axes : 001 -40 020 degrees QTc Int : 469 ms Sinus rhythm. with premature atrial complexes. with aberrant conduction. Left axis deviation Incomplete left bundle branch block Abnormal ECG When compared with ECG of 11-JAN-2018 19:21, aberrant conduction. is now present Vent. rate has decreased BY 49 BPM Incomplete left bundle branch block is now present Unconfirmed Result
--- NOTE | 2019-12-14 18:34 | HISTORY AND PHYSICAL ---
CHIEF COMPLAINT: Cough, shortness of breath and low oxygen at home. HISTORY OF PRESENT ILLNESS: Mr. Shaikh is an 83-year-old white male with a complex past medical history. He has longstanding advanced COPD and has been on daily prednisone therapy for many months. He says he had increased chest congestion, cough and shortness of breath again last night. He denies any fever or chills. He also denies any sick contacts. He has a home oximeter and his oxygen saturation last night was close to his baseline, around 93-95% on 3 to 4 liters of nasal cannula oxygen. This morning, he rechecked it and it was 79% on 5 liters. His son called my answering service and I advised him to come to the Emergency Room for further evaluation. Dr. Richards in the Emergency Room placed him on 50% Ventimask and his O2 saturation has been adequate at approximately 95-96%. His chest x-ray shows bibasilar infiltrates, greater on the right side, and superimposed on chronic fibrosis. His white blood cell count is quite elevated at 32,000. His hemoglobin, hematocrit and platelet count are surprisingly normal. He also mentioned generalized weakness and dyspnea with minimal exertion. PAST MEDICAL HISTORY: History of multiple peripheral arterial disease including an abdominal aortic aneurysm, a right iliac artery aneurysm, and carotid atherosclerosis. He has a history of aortic stenosis with a TAVR performed in March of 2018. He also has a history of nonalcoholic fatty liver disease, hypertriglyceridemia, and hypertension, as well as Gilbert's disease. He has a history of gout. HOME MEDICATIONS: 1. Allopurinol 200 mg twice q. day. 2. Aspirin 81 mg daily. 3. B Complex vitamins q.h.s.. 4. Ferrous sulfate 325 mg daily. 5. Fish oil 1000 mg twice q. day. 6. Folic acid 1 mg daily. 7. Glucosamine and chondroitin sulfate twice q. day. 8. Hydrochlorothiazide 12.5 mg daily. 9. DuoNeb q.4h. 10.Lorazepam 1 mg at h.s.. 11.Pantoprazole 40 mg daily. 12.Prednisone 10 mg daily. 13.Propranolol 40 mg twice q. day. 14.Spiriva, one capsule inhaled daily. 15.Symbicort, 2 puffs twice q. day. ALLERGIES: The patient is allergic to Actos, doxycycline, TriCor, Zofran and Zosyn. SOCIAL HISTORY: He is an ex-smoker, smoking 1-1/2 packs per day for 50+ years but stopped in 2004. He denies alcohol or recreational drug use. He is retired from [employer]. His is at the bedside. FAMILY HISTORY: Father at age 79 due to complications of a hepatoma. Mother at age 98 secondary to dementia and with a history of stroke. REVIEW OF SYSTEMS: GENERAL: No headache, fever, chills, night sweats or weight loss. HEENT: Vision and hearing are adequate without recent changes. CARDIOVASCULAR: No history of angina or ischemic heart disease. No history of congestive heart failure. He has had a previous TAVR for aortic stenosis. No syncope or arrhythmias history. GI: Appetite has been adequate. No recent diarrhea or constipation, nausea or vomiting. He has a history of intermittent hyperbilirubinemia felt to be Gilbert's disease. MUSCULOSKELETAL: His activity level is minimal but he denies specific joint complaints. NEUROPSYCHIATRIC: No history of mood disorders. Questionable history of mild cognitive impairment. PHYSICAL EXAMINATION: VITAL SIGNS: Temperature 97.5 degrees, blood pressure 106/74, heart rate 87, respirations 26, oxygen saturation 95% on 50% Ventimask. GENERAL APPEARANCE: Chronically ill-appearing gentleman who is alert and cooperative and in no acute distress. SKIN: Exam reveals multiple small purpura on his forearms and the back of his hands. The skin is also somewhat thin. Skin turgor is adequate. HEENT: No visible evidence of trauma. Pupils are equal, round and reactive to light. Extraocular movements intact. Sclerae are nonicteric. Nasal pharynx is unremarkable. Oropharynx is unremarkable. NECK: Supple with no lymphadenopathy, JVD or thyromegaly. CARDIOVASCULAR: Regular rate and rhythm. No murmurs, rubs or gallops. PULMONARY: Diffuse soft rhonchi bilaterally with a few crackles in both bases. Air movement is reduced and expiratory phase is slightly prolonged. ABDOMEN: Soft, nontender, nondistended with active bowel sounds. EXTREMITIES: Moves all extremities well. No clubbing, cyanosis or edema. LABORATORY DATA: White blood cell count 32,380, hemoglobin 15.1, hematocrit 45.7, platelet count 175,000. PT and PTT are normal. Blood gases on 50% Ventimask: pH is 7.45, pCO2 is 32, PO2 is 70. Lactate level is 3.7. Sodium 142, CO2 of 23, BUN 26, creatinine 1.4, glucose 127. Bilirubin 2.17. ProBNP is 2072. IMAGING: Chest x-ray reveals bibasilar air space consolidations consistent with pneumonia, superimposed on fibrosis. ASSESSMENT AND PLAN: An elderly, frail gentleman with complex past medical history who presents for evaluation of progressive pulmonary disease. His oxygenation is clearly impaired and he has significant wheezing. He has both radiographic and auscultation findings of pneumonia. He will be admitted to [facility] for acute exacerbation of chronic obstructive pulmonary disease with hypoxia in the setting of bilateral pneumonia. Regarding antibiotics, he has been given a dose of vancomycin and cefepime by the Emergency Room physician. I think the vancomycin will carry him for over [address] Guerra can decide whether to continue it. I feel he needs atypical coverage and will add some Zithromax orally. Sputum cultures are yet to be collected but his blood cultures have been done prior to giving antibiotics. He will be continued on Ventimask oxygen and we will try changing his treatments to levalbuterol. Previously even with the increased steroids, he had essentially normal glycemia, so I do not feel he needs pattern blood sugars and sliding-scale insulin. He will be placed on subcutaneous Lovenox for DVT prevention. cc: Julio C Goddard MD
[2019-12-14] MEDS: NS 1,000 ML IV SCH (19:44)
[2019-12-14] MEDS: SOLU-MEDROL IV SCH (19:44)
[2019-12-14] MEDS: LOVENOX SUBQ SCH (19:44)
[2019-12-14] MEDS: XOPENEX NEB INH SCH ×2 (20:49→22:42)
[2019-12-14] MEDS ORDERED: ELAVIL PO SCH (21:00)
[2019-12-14] MEDS: ATIVAN PO SCH (22:06)
[2019-12-14] MEDS: INDERAL PO SCH (22:07)
[2019-12-14] MEDS: ZYLOPRIM PO SCH (22:07)
[2019-12-14] MEDS: ZITHROMAX PO SCH (22:07)
[2019-12-15] MEDS: MAXIPIME 1 GM in NS 50 ML IV SCH ×2 (01:49→15:49)
[2019-12-15] MEDS: ELAVIL PO SCH ×2 (02:00→21:54)
[2019-12-15] MEDS: SOLU-MEDROL IV SCH ×3 (02:18→21:51)
[2019-12-15] MEDS: XOPENEX NEB INH SCH ×4 (03:10→22:16)
[2019-12-15 05:55] LABS: BASO# 0.02 X1000 (0.0-0.2); BASO% 0.1 % (0.0-0.8); HEMATOCRIT 42.1 % (42.0-52.0); HEMOGLOBIN 13.6 g/dL (14.0-18.0); IMM GRAN# 0.19 X1000 (0.0-0.04); LYMPH# 0.64 X1000 (1.2-3.4); LYMPH% 3.4 % (20.5-51.1); MCH 30.7 PG (27-31); MCHC 32.3 g/dL (33-37); MONO# 0.37 X1000 (0.11-0.59); MPV 11.8 FL (7.4-10.4); NEUT# 17.56 X1000 (1.4-6.5); NEUT% 93.5 % (42.2-75.2); PLT 129 X1000 (130-400); RBC 4.43 XMIL (4.7-6.1); WBC 18.78 X1000 (4.8-10.8)
[2019-12-15] MEDS: NS 1,000 ML IV SCH ×3 (06:05→15:49)
[2019-12-15] MEDS: PROTONIX PO SCH (06:05)
[2019-12-15 06:14] LABS: AGAP 10; BUN 26 mg/dL (8-22); CALCIUM 9.2 mg/dL (8.8-10.2); CHLORIDE 109 mmol/L (98-107); COSMO 296; CREATININE 1.1 mg/dL (0.7-1.2); ESTIMATED GFR > 60; GLUCOSE 141 mg/dL (70-104); POTASSIUM 4.8 mmol/L (3.5-5.1); SODIUM 145 mmol/L (136-145); TCO2 26 mmol/L (25-35)
[2019-12-15] MEDS ORDERED: HYDROCHLOROTHIAZIDE PO SCH (09:00)
[2019-12-15] MEDS: INDERAL PO SCH ×2 (09:08→21:54)
[2019-12-15] MEDS: ZYLOPRIM PO SCH ×2 (09:08→21:55)
[2019-12-15] MEDS: PLAVIX PO SCH (09:09)
[2019-12-15] MEDS: SPIRIVA INH SCH (09:30)
[2019-12-15] MEDS ORDERED: VANCOMYCIN IV PER PHARMACY MISC SCH (13:15)
--- NOTE | 2019-12-15 13:19 | PROGRESS NOTE ---
DATE: 12/15/2019 SUBJECTIVE: The patient's chart was reviewed. In summary, patient was admitted yesterday with bibasilar pneumonia and acute exacerbation of chronic obstructive pulmonary disease. The patient was given a dose of cefepime and vancomycin in the emergency department. Azithromycin was added upon admission. The patient's COPD is treated with bronchodilators as well as steroids. Upon my arrival this morning, patient states he continues to feel poorly, but significantly improved from yesterday. He denies current fevers, chills, nausea, vomiting, chest discomfort, or palpitations. Oxygen demands are slightly improved. OBJECTIVE: Vital Signs: T-max 97.9 degrees, heart rate 64 to 99, respirations 16 to 34, blood pressure 106 to 137/74 to 91. General: In no acute distress. Cardiovascular: Regular rate and rhythm. No significant murmurs, rubs, or gallops. Pulmonary: Distant breath sounds. Occasional wheeze. Marginal air movement. Abdomen: Soft, nontender, nondistended. Positive bowel sounds. Extremities: Moves all extremities well. No significant clubbing, cyanosis, or edema. Dermatologic: Evaluation reveals no evidence of rash. LABORATORY DATA: White blood cell count 18.78, hemoglobin 13.6, hematocrit 42.1, platelet count is a 129,000. Sodium 145, potassium 4.5, chloride 109, bicarb 26, BUN 26, creatinine 1.1, glucose 141. Plasma lactate 3.6. ASSESSMENT AND PLAN: 1. Bibasilar pneumonia with associated sepsis - lactic acid was noted to be elevated. White blood cell count was significantly elevated. The patient is being treated with broad-spectrum antibiotics and IV fluids. At this point, his condition has improved considerably from yesterday. We will continue cefepime and azithromycin therapy. We will ask pharmacy to dose vancomycin. We will treat acute exacerbation of chronic obstructive pulmonary disease as described below. 2. Acute exacerbation of chronic obstructive pulmonary disease - this likely is a consequence of his underlying pneumonia. We will place patient on aspiration precautions. We will continue IV steroids at current dose and bronchodilators. We will encourage incentive spirometry. 3. Hypoxia - this has improved slightly from admission. We will continue oxygen per protocol. 4. Hypertension - the patient's blood pressure was noted to be marginal upon admission, likely secondary to his underlying sepsis. We will continue to hold hydrochlorothiazide therapy. 5. Reflux disease - we will continue patient on pantoprazole therapy. 6. Gout - we will continue allopurinol therapy. DISPOSITION: At this point, patient continues to require prison care in the hospital setting. We will plan discharge home once appropriate. cc: Scott Guerra MD
[2019-12-15] MEDS ORDERED: VANCOMYCIN 2,000 MG in NS 500 ML IV ONE (15:00)
[2019-12-15] MEDS ORDERED: ELAVIL PO SCH (21:00)
[2019-12-15] MEDS: LOVENOX SUBQ SCH (21:50)
[2019-12-15] MEDS: ATIVAN PO SCH (21:54)
[2019-12-15] MEDS: ZITHROMAX PO SCH (21:55)
[2019-12-15] MEDS: NS NEB INH SCH (22:16)
[2019-12-16] MEDS: MAXIPIME 1 GM in NS 50 ML IV SCH ×2 (02:06→14:40)
[2019-12-16] MEDS: SOLU-MEDROL IV SCH ×3 (02:17→20:14)
[2019-12-16] MEDS: NS NEB INH SCH (03:02)
[2019-12-16] MEDS: XOPENEX NEB INH SCH ×4 (03:02→21:05)
[2019-12-16] MEDS: NS 1,000 ML IV SCH ×2 (03:16→04:22)
[2019-12-16 06:06] LABS: BASO# 0.01 X1000 (0.0-0.2); BASO% 0.1 % (0.0-0.8); HEMOGLOBIN 11.8 g/dL (14.0-18.0); IMM GRAN# 0.07 X1000 (0.0-0.04); IMM GRAN% 0.6 % (0.0-0.5); LYMPH# 0.39 X1000 (1.2-3.4); LYMPH% 3.3 % (20.5-51.1); MCH 30.2 PG (27-31); MCHC 31.9 g/dL (33-37); MCV 94.6 FL (81-99); MONO# 0.27 X1000 (0.11-0.59); MONO% 2.3 % (1.7-9.3); MPV 12.1 FL (7.4-10.4); NEUT# 10.94 X1000 (1.4-6.5); NEUT% 93.7 % (42.2-75.2); PLT 122 X1000 (130-400); RBC 3.91 XMIL (4.7-6.1); RDW 16.7 % (11.5-14.5); WBC 11.68 X1000 (4.8-10.8)
[2019-12-16 06:16] LABS: AGAP 10; ALB/GLOB RATIO 1.2; ALKALINE PHOSPHATASE 51 U/L (32-122); BUN 24 mg/dL (8-22); CALCIUM 8.6 mg/dL (8.8-10.2); CHLORIDE 110 mmol/L (98-107); COSMO 294; CREATININE 0.7 mg/dL (0.7-1.2); ESTIMATED GFR > 60; GLUCOSE 147 mg/dL (70-104); GOT 15 U/L (10-34); GPT 13 U/L (10-44); POTASSIUM 3.8 mmol/L (3.5-5.1); SODIUM 144 mmol/L (136-145); TCO2 24 mmol/L (25-35); TOTAL BILIRUBIN 1.05 mg/dL (0.20-1.00); TOTAL PROTEIN 5.6 g/dL (6.3-8.3)
[2019-12-16] MEDS: PROTONIX PO SCH (06:21)
[2019-12-16 06:57] LABS: LYMPHS 4 % (21-51); MONO 3 % (1-9); SEGS 93 % (42-75)
[2019-12-16] MEDS: PLAVIX PO SCH (09:22)
[2019-12-16] MEDS: ZYLOPRIM PO SCH ×2 (09:22→20:15)
[2019-12-16] MEDS: INDERAL PO SCH ×2 (09:22→20:15)
[2019-12-16 10:09] LABS: URINE SOURCE CLEAN CATCH
[2019-12-16 10:14] LABS: BILIRUBIN URINE NEGATIVE (NEGATIVE); BLOOD URINE TRACE (NEGATIVE); COLOR YELLOW; GLUCOSE URINE NEGATIVE (NEGATIVE); KETONE URINE NEGATIVE (NEGATIVE); LEUKOCYTES URINE NEGATIVE (NEGATIVE); NITRITE URINE NEGATIVE (NEGATIVE); PROTEIN URINE 30 mg/dL (NEGATIVE); SP GRAVITY URINE 1.026; TURBIDITY URINE CLEAR (CLEAR); UROBILINOGEN URINE NORMAL (NORMAL)
[2019-12-16 10:18] LABS: UR EPITHELIAL CELLS <10 /HPF (<10); URINE BACTERIA NEGATIVE /HPF; URINE RBC <10 /HPF (<10); URINE WBC <10 /HPF (<10)
[2019-12-16] MEDS: SPIRIVA INH SCH (15:58)
[2019-12-16] MEDS: VANCOMYCIN 1,300 MG in NS 250 ML IV SCH (16:20)
--- NOTE | 2019-12-16 20:00 | PROGRESS NOTE ---
DATE: 12/16/2019 SUBJECTIVE: Upon my arrival this morning, patient stated that he slept well overnight. Overall, his shortness of breath, cough, wheezing, and energy level has demonstrated significant improvement. P.o. intake is adequate. Through the day, patient was able to ambulate to the restroom but with significant shortness of breath. There has been no evidence of fevers, chills, nausea, vomiting or chest discomfort. OBJECTIVE: Vital signs: T-max 98.3 degrees, heart rate 64 to 91, respirations 18 to 26, blood pressure 132 to 157/67 to 99. General: Chronically ill appearing, no acute distress. Cardiovascular: Regular rate and rhythm. No significant murmurs, rubs, or gallops. Pulmonary: Distant breath sounds. Wheezing bilaterally, improved from yesterday. Abdomen: Soft, nontender, nondistended. Positive bowel sounds. Extremities: Moves all extremities well. No significant clubbing, cyanosis, or edema. Dermatologic: Evaluation reveals no evidence of rash. LABORATORY DATA: White blood cell count 11.68, hemoglobin 11.8, hematocrit 37.0, platelet count 122,000. Sodium 144, potassium 3.8, chloride 110, bicarb 24, BUN 24, creatinine 0.7, glucose 147, calcium 8.6, total bilirubin 1.05, total protein 5.6, albumin 3.0, alkaline phosphatase 51, AST 15, ALT 13. ASSESSMENT AND PLAN: 1. Bibasilar pneumonia with associated sepsis--The white blood cell count is trending downwards. Blood pressure is trending upwards. Clinically, patient has demonstrated significant improvement. For now, we will continue cefepime, azithromycin, and vancomycin therapy. We will continue bronchodilators and steroids as described below. Because patient appears to be volume replete, we will discontinue IV fluids. We will continue to encourage pulmonary toilet. 2. Acute exacerbation of chronic obstructive pulmonary disease--This likely is a consequence of his underlying pneumonia. We will continue to encourage aspiration precautions. Treatment with IV steroids, bronchodilators, and antibiotics will be continued. We will follow this closely. 3. Hypoxia--Oxygenation is improving from admission. We will continue oxygen per protocol. 4. Hypertension--Blood pressure is trending upwards. We will hold hydrochlorothiazide for now, but we will likely plan to resume this in the near future. 5. Reflux disease--We will continue patient on pantoprazole therapy. 6. Gout--We will continue patient on allopurinol. 7. Disposition--At this point, patient continues to require snf care in the hospital setting. We will plan discharge home once appropriate. cc: Scott Guerra MD
[2019-12-16] MEDS: ZITHROMAX PO SCH (20:15)
[2019-12-16] MEDS: ATIVAN PO SCH (20:15)
[2019-12-16] MEDS: ELAVIL PO SCH (20:16)
[2019-12-16] MEDS: LOVENOX SUBQ SCH (20:16)
[2019-12-17] MEDS: MAXIPIME 1 GM in NS 50 ML IV SCH ×2 (03:00→14:00)
[2019-12-17] MEDS: XOPENEX NEB INH SCH ×4 (03:00→21:55)
[2019-12-17] MEDS: SOLU-MEDROL IV SCH ×3 (03:59→20:21)
[2019-12-17] MEDS: PROTONIX PO SCH (06:44)
[2019-12-17] MEDS: SPIRIVA INH SCH (07:35)
[2019-12-17] MEDS: INDERAL PO SCH ×2 (08:37→20:20)
[2019-12-17] MEDS: ZYLOPRIM PO SCH ×2 (08:37→20:20)
[2019-12-17] MEDS: PLAVIX PO SCH (08:37)
[2019-12-17] MEDS: NS NEB INH SCH (15:24)
[2019-12-17] MEDS: VANCOMYCIN 1,300 MG in NS 250 ML IV SCH (16:14)
--- NOTE | 2019-12-17 19:42 | PROGRESS NOTE ---
DATE: 12/17/2019 SUBJECTIVE: Upon my arrival this morning, patient stated he was feeling significantly improved from admission. While he does continue to have cough, congestion, and wheezing, his shortness of breath has improved considerably. Oral intake is adequate. He denies fevers, chills, nausea, vomiting, or chest discomfort. OBJECTIVE: Vital Signs: Temperature maximum 98.6 degrees, heart rate 63 to 88, respirations 16 to 20, blood pressure 128 to 162 over 42 to 110. General: Chronically ill appearing, no acute distress. Cardiovascular: Regular rate and rhythm. No significant murmurs, rubs, or gallops. Pulmonary: Distant breath sounds. Occasional wheeze, improved from yesterday. Abdomen: Soft, nontender, nondistended. Positive bowel sounds. Extremities: Moves all extremities well. No significant clubbing, cyanosis, or edema. Dermatologic: Evaluation reveals no evidence of rash. LABORATORY DATA: None. ASSESSMENT AND PLAN: 1. Bibasilar pneumonia with associated sepsis-white blood cell count was trending down as of yesterday. Clinically, he has improved considerably. We will continue patient on cefepime, azithromycin, and vancomycin therapy. Blood cultures thus far are negative. Sputum culture requires further incubation. 2. Acute exacerbation of chronic obstructive pulmonary disease-I am encouraged with patient's improvement. We will continue patient on antibiotics as described above. We will continue bronchodilators as his wheezing is decreasing. We will begin a slow steroid taper. We will continue to encourage incentive spirometry and aspiration precautions. 3. Hypoxia-oxygenation is also improving. We will continue oxygen per protocol. 4. Hypertension-blood pressure is slightly elevated today. Hydrochlorothiazide has been held in the setting of sepsis. We will consider resuming this in the morning. Blood pressure is trending upwards. 5. Reflux disease-we will continue pantoprazole therapy. 6. Gout-symptoms are controlled with allopurinol therapy. 7. Disposition-at this point, patient continues to require senior care care in a hospital setting. We will plan discharge home once appropriate. cc: Scott Guerra MD
[2019-12-17] MEDS: LOVENOX SUBQ SCH (20:21)
[2019-12-17] MEDS: ELAVIL PO SCH (20:21)
[2019-12-17] MEDS: ATIVAN PO SCH (20:21)
[2019-12-18] MEDS: MAXIPIME 1 GM in NS 50 ML IV SCH ×2 (01:50→14:56)
[2019-12-18] MEDS: SOLU-MEDROL IV SCH ×2 (01:50→09:49)
[2019-12-18] MEDS: XOPENEX NEB INH SCH ×4 (03:20→21:20)
[2019-12-18] MEDS: PROTONIX PO SCH (06:02)
--- NOTE | 2019-12-18 07:43 | Diag Imaging Result Doc PS360 ---
EXAM: CHEST-PORTABLE 12/18/2019 HISTORY: dyspnea TECHNIQUE: AP portable upright at 0554 COMMENT: There are ill-defined opacities in both lung bases. This has improved slightly since 12/14/2019. There is volume loss on the right which was also present at the time the previous study. IMPRESSION: Improved pulmonary edema and/or pneumonia. Electronically signed by Carlyle Pa 12/18/2019 7:41 AM
[2019-12-18] MEDS: PLAVIX PO SCH (09:49)
[2019-12-18] MEDS: ZYLOPRIM PO SCH ×2 (09:50→21:47)
[2019-12-18] MEDS: INDERAL PO SCH ×2 (09:50→21:47)
[2019-12-18] MEDS: NS NEB INH SCH ×2 (10:04→15:03)
[2019-12-18] MEDS: SPIRIVA INH SCH (10:09)
--- NOTE | 2019-12-18 14:44 | PROGRESS NOTE ---
DATE: 12/18/2019 SUBJECTIVE: Upon my arrival this morning, patient was resting in bed. Overall, patient states his condition continues to improve. He continues to have cough, congestion, wheezing, and shortness of breath, although this is significantly decreased from admission. He has had no evidence of fevers, chills, nausea, vomiting, or chest discomfort. P.o. intake is improving. OBJECTIVE: Vital signs: T-max 98.6 degrees, heart rate 63 to 84, respirations 17 to 20, blood pressure 128 to 162 over 42 to 110. General: Chronically ill appearing, no acute distress. Cardiovascular: Regular rate and rhythm. Frequent ectopy. Pulmonary: Distant breath sounds. Occasional wheeze, improved from yesterday. Abdomen: Soft, nontender, nondistended. Positive bowel sounds. Extremities: Moves all extremities well. No significant clubbing, cyanosis, or edema. Dermatologic: No evidence of rash. LABORATORY DATA: None. IMAGING: Chest x-ray reveals improved pulmonary edema and/or pneumonia. MICROBIOLOGY: Sputum culture revealed a gram-negative gisele. ASSESSMENT AND PLAN: 1. Bibasilar pneumonia with associated sepsis - this appears to be a gram-negative pneumonia. Blood cultures are negative. White blood cell count is trending downwards. Clinically, he is improving. For now, we will continue broad-spectrum antibiotics. We will follow up sputum culture. Outpatient therapy will be determined by definitive pathogen identified. 2. Acute exacerbation of chronic obstructive pulmonary disease - overall, patient's air movement is improving. His wheezing is decreasing. We will continue steroid taper. We will encourage incentive spirometry and aspiration precautions. We will treat pneumonia as described above. 3. Hypoxia - the patient's oxygenation is stable. We will continue oxygen per protocol. 4. Hypertension - patient does continue to have lability in his blood pressure. Hydrochlorothiazide continues to be held. We will consider resuming this in the near future. 5. Reflux disease - we will continue patient on pantoprazole therapy. Symptoms are controlled. We will encourage aspiration precautions. 6. Gout - we will continue patient on allopurinol therapy. Symptoms are stable. 7. Disposition - at this point, patient continues to require half-way care in a hospital setting. I anticipate possible discharge home tomorrow. cc: Scott Guerra MD
[2019-12-18] MEDS ORDERED: VANCOMYCIN 1,300 MG in NS 250 ML IV SCH (17:00)
[2019-12-18] MEDS ORDERED: SOLU-MEDROL IV SCH (21:00)
[2019-12-18] MEDS: LOVENOX SUBQ SCH (21:46)
[2019-12-18] MEDS: ATIVAN PO SCH (21:47)
[2019-12-18] MEDS: ELAVIL PO SCH (21:47)
[2019-12-19] MEDS: MAXIPIME 1 GM in NS 50 ML IV SCH (02:23)
[2019-12-19] MEDS: XOPENEX NEB INH SCH ×3 (03:45→15:25)
[2019-12-19 05:30] LABS: BASO# 0.12 X1000 (0.0-0.2); BASO% 1.3 % (0.0-0.8); HEMATOCRIT 42.3 % (42.0-52.0); HEMOGLOBIN 13.5 g/dL (14.0-18.0); IMM GRAN# 0.47 X1000 (0.0-0.04); IMM GRAN% 5.2 % (0.0-0.5); LYMPH# 0.49 X1000 (1.2-3.4); LYMPH% 5.4 % (20.5-51.1); MCH 30.1 PG (27-31); MCHC 31.9 g/dL (33-37); MCV 94.2 FL (81-99); MONO# 0.23 X1000 (0.11-0.59); MONO% 2.5 % (1.7-9.3); MPV 11.4 FL (7.4-10.4); NEUT# 7.81 X1000 (1.4-6.5); NEUT% 85.6 % (42.2-75.2); PLT 143 X1000 (130-400); RBC 4.49 XMIL (4.7-6.1); RDW 15.9 % (11.5-14.5); WBC 9.12 X1000 (4.8-10.8)
[2019-12-19 05:46] LABS: AGAP 13; ALB/GLOB RATIO 1.2; ALBUMIN 3.1 g/dL (3.5-5.0); ALKALINE PHOSPHATASE 58 U/L (32-122); BUN 25 mg/dL (8-22); CALCIUM 8.8 mg/dL (8.8-10.2); CHLORIDE 102 mmol/L (98-107); COSMO 295; CREATININE 0.9 mg/dL (0.7-1.2); ESTIMATED GFR > 60; GLUCOSE 162 mg/dL (70-104); GOT 22 U/L (10-34); GPT 28 U/L (10-44); POTASSIUM 4.3 mmol/L (3.5-5.1); SODIUM 144 mmol/L (136-145); TCO2 29 mmol/L (25-35); TOTAL BILIRUBIN 1.12 mg/dL (0.20-1.00); TOTAL PROTEIN 5.7 g/dL (6.3-8.3)
[2019-12-19] MEDS: PROTONIX PO SCH (06:39)
[2019-12-19] MEDS ORDERED: PREDNISONE PO ONE (08:06)
[2019-12-19] MEDS ORDERED: LEVAQUIN 500 MG/D5W 500 MG/100 ML IVPB IV ONE (08:58)
[2019-12-19] MEDS: NS NEB INH SCH ×2 (09:30→15:25)
[2019-12-19] MEDS: SPIRIVA INH SCH (09:33)
[2019-12-19] MEDS: INDERAL PO SCH (09:42)
[2019-12-19] MEDS: PLAVIX PO SCH (09:43)
[2019-12-19] MEDS: ZYLOPRIM PO SCH (09:43)
--- NOTE | 2019-12-19 15:12 | EKG Report ---
Test Performed on : 12/19/2019 3:05:08 PM Test Reason : palpitations Blood Pressure : / mmHG Vent. Rate : 069 BPM Atrial Rate : 069 BPM P-R Int : 164 ms QRS Dur : 112 ms QT Int : 426 ms P-R-T Axes : 000 024 001 degrees QTc Int : 456 ms Sinus rhythm. with marked sinus arrhythmia. Incomplete left bundle branch block Otherwise normal ECG When compared with ECG of 14-DEC-2019 15:05, (Unconfirmed) aberrant conduction. is no longer present Confirmed by Scott Guerra MD ([id number]) on 12/19/2019 7:50:49 PM
[2019-12-19 16:57] VITALS: BP 149/71
--- NOTE | 2019-12-19 20:07 | DISCHARGE SUMMARY ---
ADMISSION DATE: 12/14/2019 DISCHARGE DATE: 12/19/2019 ADMISSION DIAGNOSES: 1. Cough. 2. Shortness of breath. 3. Low oxygen. DISCHARGE DIAGNOSES: 1. Bibasilar pneumonia with associated sepsis, sputum culture positive for Stenotrophomonas. 2. Acute exacerbation of chronic obstructive pulmonary disease. 3. Hypoxia. 4. Hypertension, present on arrival. 5. Reflux disease, present on arrival. 6. Gout, present on arrival. CONSULTATIONS: None. PROCEDURES: 1. A chest x-ray was performed on 12/14/2019 which revealed bibasilar consolidation, suggesting pneumonia. 2. Chest x-ray was performed on 12/18/2019 which revealed improved pulmonary edema and/or pneumonia. HISTORY AND PHYSICAL EXAMINATION: See admit note. DISCHARGE PHYSICAL EXAMINATION: Prior to discharge, temperature 97.9 degrees, heart rate 81, respirations 19, blood pressure is 149/71. General: Chronically ill appearing, no acute distress. Cardiovascular: Regular rate and rhythm with frequent ectopy. No significant murmurs, rubs or gallops. Pulmonary: Prolonged expiratory phase with distant breath sounds. No significant wheezing. Abdomen: Soft, nontender, nondistended. Positive bowel sounds. Extremities: Moves all extremities well. No significant clubbing, cyanosis or edema. Dermatologic: Evaluation reveals no evidence of rash. LABORATORY DATA: White blood cell count 9.12, hemoglobin 13.5, hematocrit 42.3, platelet count 143,000. Sodium 144, potassium 4.3, chloride 102, bicarbonate 29, BUN 25, creatinine 0.9, glucose 162, calcium 8.8, total bilirubin 1.12, total protein 5.7, albumin 3.1, alkaline phosphatase 58, AST 12, ALT 28. HOSPITAL COURSE: The patient was admitted as per history and physical examination. Hospital course per condition is as follows: 1. Bibasilar pneumonia with associated sepsis: Upon admission, the patient was treated for underlying sepsis with aggressive IV hydration and with broad-spectrum antibiotics for underlying pneumonia. Acute exacerbation of chronic obstructive pulmonary disease was also treated as described below. With aggressive intervention, the patient's overall condition rapidly stabilized. He did not require pressor support. Ultimately, with time, his overall condition continued to improve. On the day of discharge, sputum culture returned positive for Stenotrophomonas maltophilia. This was sensitive to Levaquin and Bactrim. Antibiotics were adjusted. As the patient's overall condition had improved to approaching his baseline, the patient will be discharged home with 9 additional days of levofloxacin therapy. The patient is to contact me immediately should his overall condition demonstrate any decline. 2. Acute exacerbation of chronic obstructive pulmonary disease: This likely was secondary to his underlying pneumonia. The patient was treated with broad-spectrum antibiotics, IV steroids and bronchodilators. The patient's overall condition rapidly improved, as described above. Once stabilization was achieved, a steroid taper was initiated. At time of discharge, the patient has been transitioned to oral prednisone. He will be discharged home with antibiotics as described above, prednisone taper to decrease back to his baseline of 10 mg daily, and routine bronchodilators. 3. Hypoxia: The patient was treated with oxygen per protocol. At time of discharge, he was back to his baseline of 4 to 5 L of oxygen per minute. We will follow this as well. 4. Hypertension: The patient's blood pressure was low upon admission. Hydrochlorothiazide was held. With IV hydration and treatment of underlying sepsis, blood pressure recovered. At time of discharge, blood pressure was acceptable. He will resume hydrochlorothiazide tomorrow. 5. Reflux disease: The patient was continued on pantoprazole therapy. We will continue to encourage aspiration precautions. 6. Gout: The patient was maintained on allopurinol therapy. DISCHARGE CONDITION: Stable. DISPOSITION: Discharge to home. MEDICATIONS: 1. Lorazepam 1 mg at bedtime. 2. Amitriptyline 25 mg at bedtime. 3. Levaquin 500 mg daily for 9 days. 4. Prednisone taper, starting with 50 mg day 1 and decreasing 5 mg daily until 10 mg is reached. At that point he will continue 10 mg daily. 5. Propranolol 40 mg twice daily. 6. Glucosamine and chondroitin twice daily. 7. Vitamin B complex at bedtime. 8. ProAir HFA 1-2 puffs every 4-6 hours as needed. 9. DuoNeb every 4 hours while awake. 10. Hydrochlorothiazide 12.5 mg daily. 11. Folic acid 1 mg daily. 12. Loratadine 10 mg daily as needed. 13. Fish oil 1000 mg twice daily. 14. Pantoprazole 40 mg daily. 15. Allopurinol 200 mg twice daily. 16. Plavix 75 mg daily. 17. Spiriva 1 puff daily. 18. Symbicort 1 puff twice daily. 19. Ferrous sulfate 325 mg twice daily. FOLLOWUP: The patient is to follow up with me in approximately 1-2 weeks. cc: Scott Guerra MD
== END 2019-12-19 17:39 | disposition home health service (06) | DRG 871 ==
LOC: ED 13:40 → 1N 18:41
PROVIDERS: ADMIT Internal Medicine; ATTEND Internal Medicine